=== PATIENT | female | born 1950 | race Caucasian/White ===

== ENCOUNTER → 2023-01-29 | Outpatient (CLI) | payer MEDICARE, OTHER, SELFPAY ==
--- NOTE | 2023-01-29 13:06 | CT_ITS ---
EXAM: CT ABDOMEN AND PELVIS WITHOUT INTRAVENOUS CONTRAST CLINICAL INDICATION: Right mid abd pain, rectal bleeding -- allergic to contrast even with pre-treatment TECHNIQUE: Helically acquired images were obtained of the abdomen and pelvis without intravenous contrast. This CT exam was performed using one or more of the following dose reduction techniques: automated exposure control, adjustment of the mA and/or kV according to patient size, and/or use of iterative reconstruction technique. RADIATION DOSE: CTDIvol = 6.54 mGy, DLP = 313.90 mGy-cm COMPARISON: No relevant prior studies available. FINDINGS: LOWER THORAX: Minimal atelectasis or scarring in the right middle lobe and lingula. No cardiomegaly. No significant pericardial effusion. ABDOMEN: LIVER: Unremarkable. Homogeneous. GALLBLADDER AND BILE DUCTS: Cholecystectomy clips. No intra- or extrahepatic biliary ductal dilation. PANCREAS: Unremarkable. No focal cystic mass. SPLEEN: Unremarkable. Normal size without focal cystic or solid mass. ADRENALS: Unremarkable. No nodules. KIDNEYS AND URETERS: Mildly prominent right renal pelvis compared to the left, likely chronic, right renal pelvis 1.6 cm AP compared to 9 mm on the left. Small ureters. Collapsed urinary bladder. Normal renal size and position. STOMACH AND BOWEL: Mild fluid and gas in the stomach. No suspicious small bowel dilatation. Moderate stool in some of the proximal half of the colon, minimal contents in the distal colon and rectum. No perirectal soft tissue stranding. No significant diverticulosis. No perianal or perirectal mass or inflammation. No focal inflammatory change. PELVIS: APPENDIX: Nonvisualized appendix. BLADDER: See above. REPRODUCTIVE: Hysterectomy. Scattered surgical clips in the bilateral lower abdominal retroperitoneum and along the pelvic sidewalls. Normal heart size, not fully included. ABDOMEN and PELVIS: INTRAPERITONEAL SPACE: Unremarkable. No ascites or other fluid collection. No free air. BONES/JOINTS: Unremarkable. No suspicious lytic or blastic abnormality. SOFT TISSUES: Unremarkable. No discrete abdominal or pelvic wall hernia. VASCULATURE: Moderate calcifications of the origins of the celiac axis and SMA. No evidence of aortoiliac aneurysm. LYMPH NODES: Unremarkable. No enlarged lymph nodes. CT/Abdomen/Pelvis without Cont IMPRESSION: Nonspecific findings. Multifocal postoperative changes. No obvious inflammatory changes. Mildly prominent right renal pelvis, likely chronic. Electronically Signed: Cori Palomino MD at 5:17 EDT ,
== END | disposition home or self-care (01) ==
LOC: CT 13:05
PROVIDERS: PCP Family Medicine; Referring Provider Nurse Practitioner Adult Health; Visit Provider Nurse Practitioner Adult Health
DX: R10.9 Unspecified abdominal pain (principal); K62.5 Hemorrhage of anus and rectum
CPT/HCPCS: 74176

== ENCOUNTER 2023-02-24 05:23 | Day surgery (SDC) | payer MEDICARE, OTHER, SELFPAY ==
[2023-02-24] VITALS (7 sets, daily range): BP systolic 115–145; BP diastolic 63–83; PULSE 64–76; RESP 16–104; TEMP 36.5–36.8; O2SAT 96–100; BMI 25.9
--- NOTE | 2023-02-24 | GASB_PTH ---
PATIENT: NADER HOWELL LOC: EN U#:[id number] AGE/SX: 72/F ROOM: RE02/24/[address]: Dr. Brant Tang DO : 1950 BED: DIS: 02/24/2023 SPEC #: [id number] RECD: 02/24/23 12:56 STATUS: TANNER REImani #: [id number] BRANDON: 02/24/23 00:[address]: Brant Tang DEPT: SURGICAL PATHOLOGY RECD BY: Jaison Seymour ENTERED: 02/24/23 12:57 SP TYPE: Gastric Bx OTHR DR: Dr. Femi Stoner DO Tissues: A - Duodenum, NOS B - Gastric mucous membrane C - Esophageal mucous membrane D - Cecum, NOS Procedures: Special Stain Group II Surgery Specimen Level IV Alcian Blue/PAS (control) HEADER OPERATION: Colonoscopy, EGD ([facility]), biopsy PRE-OP DIAGNOSIS: Right-sided abdominal pain, rectal pain, GERD TISSUE SUBMITTED: A ? Duodenum biopsy, B ? Gastric antrum biopsy, H. pylori and path, C ? Distal esophagus biopsy, D ? Polyp cecum MICROSCOPIC DIAGNOSIS A. Duodenum, biopsy: No pathologic change. B. Gastric antrum, biopsy: Chronic gastritis. See comment. C. Distal esophagus, biopsy: Fragments of gastric mucosa with mild chronic inflammation. No evidence of goblet cell metaplasia. See comment. D. Cecal polyp, biopsy: Tubular adenoma. AM:lynette 02/25/2023 COMMENT B. The results of immunohistochemistry for Helicobacter pylori will be reported separately ([id number]). C. Alcian blue/PAS stain with matched control supports the above diagnosis. MICROSCOPIC DESCRIPTION Slides are reviewed. GROSS DESCRIPTION A - Received in fixative is one container labeled with the patient's name and designated duodenum. The specimen consists of two irregular fragments of light ingram soft tissue that in aggregate measure 0.5 x 0.3 x 0.1 cm. The specimen is totally submitted in one cassette. B - Received in fixative is one container labeled with the patient's name and designated gastric antrum. The specimen consists of two irregular fragments of light ingram soft tissue that in aggregate measure 0.6 x 0.2 x 0.1 cm. The specimen is totally submitted in one cassette. C - Received in fixative is one container labeled with the patient's name and designated distal esophagus. The specimen consists of two irregular fragments of light ingram soft tissue that in aggregate measure 0.5 x 0.5 x 0.1 cm. The specimen is totally submitted in one cassette. D - Received in fixative is one container labeled with the patient's name and designated cecal polyp. The specimen consists of one irregular fragment of light ingram soft tissue that measures 0.5 x 0.5 x 0.1 cm. The specimen is totally submitted in one cassette. / AM:lynette 02/24/2023 TC:3 CPT: 06449 x4, 94732
[2023-02-24] MEDS: Lactated Ringers 1,000 ML 15 ML IV (05:51)
--- NOTE | 2023-02-24 06:30 | IMM_PTH ---
PATIENT: NADER HOWELL LOC: EN U#:[id number] AGE/SX: 72/F ROOM: RE02/24/[address]: Dr. Bratn Tang DO : 1950 BED: DIS: 02/24/2023 SPEC #: [id number] RECD: 02/24/23 13:32 STATUS: TANNER REQ #: [id number] BRANDON: 02/24/23 06:[address]: Brant Tang DEPT: IMMUNOHISTOCHEMISTRY RECD BY: Alondra Yu ENTERED: 02/24/23 13:32 SP TYPE: IMMUNO OTHR DR: Dr. Femi Stoner DO Tissues: B - Stomach, NOS Procedures: H Pylori (initial) PHYSICIAN & INSTITUTION [place] [id number] SPECIMEN INFORMATION: Tissue Source: B - Gastric antrum Clinical Info: Right-sided abdominal pain, rectal bleeding, GERD Specimen Number: [id number] CPT code: 38200 METHODOLOGY: Deparaffinized sections of prefer/formalin-fixed tissue or PAP/DQ stained slides are incubated with monoclonal/polyclonal antibodies/oligonucleotide probes. Localization is made via biotin free immunoperoxidase method. Appropriate controls are performed and reacted as expected. Results on target cell population are indicated in the following table: RESULTS: ANTIBODY / CLONE RESULT Block B H Pylori (polyclonal) negative These tests were developed and their performance characteristics determined by [facility]. They may not have been cleared or approved by the U.S. Food and Drug Administration. The FDA has determined that such clearance or approval is not necessary. The above immunohistochemical/dualISH markers are ordered and reviewed by the Pathologist. INTERPRETATION: B. Gastric antrum, biopsy: Negative for Helicobacter pylori organisms. AM:lynette 02/25/2023
--- NOTE | 2023-02-24 06:37 | HP.PCM_ITS ---
History and Physical Date of Admission: 02/24/23 ?72 F who presents to the office today to establish with Gastroenterology for worsening right sided abdominal pain. This pain began years ago, but worse in last few months. Occurs maybe 2x per month, can be severe, wonders if it's due to scar tissue from multiple abd surgeries. Can occur with bending over. No related to eating. No associated symptoms. Helps to press that area when it occurs, can be a bulge. Recent US didn't show soft tissue problem there. Takes omeprazole daily for acid reflux, has helped to increase recently from 20 mg to 40 mg daily. Often feels like she needs to cough. Gets nausea, thinks often due to vertigo. Can have some epigastric bloating. No dysphagia. No early satiety. No change in appetite. No change in weight. No change in bowels. Consistency of stools can vary, but that isn't a change.? Needs multiple BMs to fully evacuate. Today she had BRBPR for the first time ever, no assoc pain. She reports external hemorrhoids. Hx IBS, can have some cramping related to BMs. 11/2022 RUQ US normal including soft tissue area of concern EGD and colonoscopy 2016 PSH includes hysterectomy, appy, cholecystectomy Even with pre-treatment she had severe allergic reaction to CT contrast dye ROS Const Constitutional: Positive for fatigue ENT ENT: No difficulty swallowing Gastro GI: Positive for abdominal pain, cramping and heartburn; No belching, bloating, change in bowel habits, change in stool character, coffee ground emesis, constipation, diarrhea, difficulty swallowing, feeling full early, excessive flatus, incontinent of stools, Vomiting blood/hematemesis, Bloo d in stool, loose stools, Black,tarry stools, nausea/dyspepsia, pain with swallowing, vomiting or other Musc Musculoskeletal: Positive for joint pain, joint swelling, numbness, stiffness, tingling, Arthritis, restless legs and leg pain at night Skin Skin: No yellowing of the eye or itchy eyes Neuro Neurology: Positive for numbness, tingling and restless legs Psych Psychiatric: Positive for anxiety and No depression Endo Endocrine: Positive for fatigue Aller/Imm Allergy/Immunologic: No itchy eyes Moshe/Lymp Hematologic/Lymphatic: No easy bleeding or easy bruising Exam Const General: cooperative, healthy appearing and comfortable Nutritional Appearance: overweight Orientation: alert, awake and oriented x3 HENMT Head: normal to inspection Eyes Sclera: sclerae normal Resp Effort & Inspection: normal respiratory effort GI Inspection: scar (hyst,shiv,appy) Palpation: soft, no hepatosplenomegaly, no masses and nontender Skin General: no rashes or lesions noted Neuro Gait: normal gait Psych Mood: congruent mood Quality Reporting Tobacco Screening ([facility] 138) Smoking Status: Never smoker Assessment and Plan Assessment and Plan (1) Right sided abdominal pain: ?Status:?Chronic ?Plan: 72 yo female with chronic right sided abd pain. No reason found on US. Will get CT (can't have contrast due to severe allergy even w/ pre-treatment). EGD and colonoscopy for further eval. F/u in office 2 wks after endoscopies. (2) Rectal bleeding: ?Status:?Acute ?Plan: Painless rectal bleeding today Will get colonoscopy (3) GERD (gastroesophageal reflux disease): ?Status:?Chronic ?Plan: Continue omeprazole 40 mg daily Will get EGD ? ? ? Orders: Orders Abdomen/Pelvis without Cont Today R10.9 - Unspecified abdominal pain ? Medications: Discontinued hydrocodone-acetaminophen 5-300 mg (Vicodin) ?? Discontinued Reason:? Pt no longer taking 1 - 2 tabs? PO Q6H PRN PRN 30 tabs Pain ? ? I have examined the patient and the H&P has been reviewed. There are no clinical changes since date of exam.
--- NOTE | 2023-02-24 07:26 | OP.EGD_ITS ---
Patient Name: Gin Rodriguez Procedure Date: 02/24/2023 6:20 AM Date of : 1950 Age: 72 Procedure: Upper GI endoscopy Indications: Epigastric abdominal pain, Functional Dyspepsia Providers: Brant Tang DO Referring MD: Femi Stoner Medicines: Monitored Anesthesia Care Patient Profile: This is a 72 year old female. Refer to note in patient chart for documentation of history and physical. Patient has symptoms of chronic abdominal distention and chronic global abdominal pain. Complications: No immediate complications. Procedure: Pre-Anesthesia Assessment: - Prior to the procedure, a History and Physical was performed, and patient medications and allergies were reviewed. The risks and benefits of the procedure and the sedation options and risks were discussed with the patient. All questions were answered and informed consent was obtained. Patient identification and proposed procedure were verified by the physician. Mental Status Examination: normal. CV Examination: normal. Prophylactic Antibiotics: The patient does not require prophylactic antibiotics. Prior Anticoagulants: The patient has taken no previous anticoagulant or antiplatelet agents. After reviewing the risks and benefits, the patient was deemed in satisfactory condition to undergo the procedure. The anesthesia plan was to use monitored anesthesia care (MAC). Immediately prior to administration of medications, the patient was re-assessed for adequacy to receive sedatives. The heart rate, respiratory rate, oxygen saturations, blood pressure, adequacy of pulmonary ventilation, and response to care were monitored throughout the procedure. The physical status of the patient was re-assessed after the procedure. After obtaining informed consent, the endoscope was passed under direct vision. Throughout the procedure, the patient's blood pressure, pulse, and oxygen saturations were monitored continuously. The was introduced through the mouth, and advanced to the second part of duodenum. The upper GI endoscopy was accomplished without difficulty. The patient tolerated the procedure well. Scope In: 6:47:18 AM Scope Out: 6:52:44 AM Total Procedure Duration Time 0 hours 5 minutes 26 seconds Findings: Non-severe esophagitis with no bleeding was found 36 to 38 cm from the incisors. Biopsies were taken with a cold forceps for histology. Verification of patient identification for the specimen was done. Estimated blood loss was minimal. Diffuse mild inflammation characterized by erythema was found in the gastric body. Biopsies were taken with a cold forceps for histology. Estimated blood loss: none. Diffuse mildly erythematous mucosa without active bleeding and with no stigmata of bleeding was found in the first portion of the duodenum. Biopsies were taken with a cold forceps for histology. Verification of patient identification for the specimen was done. Estimated blood loss was minimal. Impression: - Non-severe esophagitis. Biopsied. - Bile gastritis. Biopsied. - Erythematous duodenopathy. Biopsied. Recommendation: - Discharge patient to home. - Resume previous diet. - Continue present medications. - Await pathology results. - Repeat upper endoscopy for surveillance. Procedure Code(s): --- Professional --- 85635, Esophagogastroduodenoscopy, flexible, transoral; with biopsy, single or multiple CPT copyright 2017 [employer]. All rights reserved. The codes documented in this report are preliminary and upon death surveys coder review may be revised to meet current compliance requirements. Brant Tang DO 02/24/2023 7:25:46 AM This report has been signed electronically. Number of Addenda: 0 Note Initiated On: 02/24/2023 6:20 AM
--- NOTE | 2023-02-24 07:27 | OP.CCLET_ITS ---
02/24/2023 Femi Stoner Re : Upper GI endoscopy procedure for Gin Rodriguez Dear Georgaina This procedure was performed on Friday, February 24, 2023. My impressions and recommendations are as follows: Impressions : - Non-severe esophagitis. Biopsied. - Bile gastritis. Biopsied. - Erythematous duodenopathy. Biopsied. Recommendations : - Discharge patient to home. - Resume previous diet. - Continue present medications. - Await pathology results. - Repeat upper endoscopy for surveillance. My findings are described in the full procedure note, which is enclosed. If I can be of further assistance, please feel free to contact me at . Sincerely, Brant Tang DO 02/24/2023 7:25:46 AM This report has been signed electronically.
--- NOTE | 2023-02-24 07:32 | OP.COLON_ITS ---
Patient Name: Gin Rodriguez Procedure Date: 02/24/2023 6:52 AM Date of : 1950 Age: 72 Procedure: Colonoscopy Indications: Generalized abdominal pain, Abdominal pain in the left lower quadrant Providers: Brant Tang DO Referring MD: Femi Stoner Medicines: Monitored Anesthesia Care Patient Profile: This is a 72 year old female. Refer to note in patient chart for documentation of history and physical. Patient has symptoms of chronic abdominal distention and chronic global abdominal pain. Last Colonoscopy: 5 years ago. Complications: No immediate complications. Procedure: Pre-Anesthesia Assessment: - Prior to the procedure, a History and Physical was performed, and patient medications and allergies were reviewed. The risks and benefits of the procedure and the sedation options and risks were discussed with the patient. All questions were answered and informed consent was obtained. Patient identification and proposed procedure were verified by the physician. Mental Status Examination: normal. CV Examination: normal. Prophylactic Antibiotics: The patient does not require prophylactic antibiotics. Prior Anticoagulants: The patient has taken no previous anticoagulant or antiplatelet agents. After reviewing the risks and benefits, the patient was deemed in satisfactory condition to undergo the procedure. The anesthesia plan was to use monitored anesthesia care (MAC). Immediately prior to administration of medications, the patient was re-assessed for adequacy to receive sedatives. The heart rate, respiratory rate, oxygen saturations, blood pressure, adequacy of pulmonary ventilation, and response to care were monitored throughout the procedure. The physical status of the patient was re-assessed after the procedure. After I obtained informed consent, the scope was passed under direct vision. Throughout the procedure, the patient's blood pressure, pulse, and oxygen saturations were monitored continuously. The Colonoscope was introduced through the anus and advanced to the terminal ileum. The colonoscopy was performed without difficulty. The patient tolerated the procedure well. The quality of the bowel preparation was good. Scope In: 6:55:20 AM Scope Withdrawal Time 0 hours 11 minutes 57 seconds Scope Out: 7:14:47 AM Total Procedure Duration Time 0 hours 19 minutes 27 seconds Findings: The perianal and digital rectal examinations were normal. A benign-appearing, intrinsic moderate stenosis measuring 3 cm (in length) was found in the sigmoid colon and was traversed. A 5 mm polyp was found in the cecum. The polyp was sessile. The polyp was removed with a cold snare. Resection and retrieval were complete. Verification of patient identification for the specimen was done. Estimated blood loss was minimal. Impression: - Stricture in the sigmoid colon. - One 5 mm polyp in the cecum, removed with a cold snare. Resected and retrieved. Recommendation: - Repeat colonoscopy in 5 years for surveillance. - Continue present medications. Procedure Code(s): --- Professional --- 62617, Colonoscopy, flexible; with removal of tumor(s), polyp(s), or other lesion(s) by snare technique CPT copyright 2017 [employer]. All rights reserved. The codes documented in this report are preliminary and upon punchboard filling machine operator review may be revised to meet current compliance requirements. Brant Tang DO 02/24/2023 7:31:57 AM This report has been signed electronically. Number of Addenda: 0 Note Initiated On: 02/24/2023 6:52 AM
--- NOTE | 2023-02-24 07:32 | OP.CCLET_ITS ---
02/24/2023 Femi Stoner Re : Colonoscopy procedure for Gin Rodriguez Dear Georgiana This procedure was performed on Friday, February 24, 2023. My impressions and recommendations are as follows: Impressions : - Stricture in the sigmoid colon. - One 5 mm polyp in the cecum, removed with a cold snare. Resected and retrieved. Recommendations : - Repeat colonoscopy in 5 years for surveillance. - Continue present medications. My findings are described in the full procedure note, which is enclosed. If I can be of further assistance, please feel free to contact me at . Sincerely, Brant Tang, 02/24/2023 7:31:57 AM This report has been signed electronically.
[2023-02-27 19:07] LABS: Anti-Centromere B Ab <0.2 AI (0.0-0.9); Anti-Chromatin <0.2 AI (0.0-0.9); Anti-Jo <0.2 AI (0.0-0.9); Anti-Scleroderma-70 AB <0.2 AI (0.0-0.9); Anti-dsDNA Ab 1 IU/mL (0-9); Beef <0.10 kU/L (Class 0); Chocolate <0.10 kU/L (Class 0); Clam <0.10 kU/L (Class 0); Codfish <0.10 kU/L (Class 0); Corn <0.10 kU/L (Class 0); Egg, White <0.10 kU/L (Class 0); Egg, Whole <0.10 kU/L (Class 0); Milk (Cow) <0.10 kU/L (Class 0); Peanut <0.10 kU/L (Class 0); Pork <0.10 kU/L (Class 0); RNP Ab <0.2 AI (0.0-0.9); SCALLOP <0.10 kU/L (Class 0); SESAME SEED <0.10 kU/L (Class 0); SJOGREN'S Anti-SS-A test < 0.2 AI (0.0-0.9); SJOGREN'S Anti-SS-B test < 0.2 AI (0.0-0.9); Shrimp <0.10 kU/L (Class 0); Smith Ab <0.2 AI (0.0-0.9); Soybean <0.10 kU/L (Class 0); Walnut, (Food) <0.10 kU/L (Class 0); Wheat <0.10 kU/L (Class 0)
[2023-02-28 01:07] LABS: Albumin, Ur 64.1 % (.); Alpha-1-Globulin, Ur 0.7 % (.); Alpha-2-Globulins, Ur 5.1 % (.); Beta Globulin, Ur 11.7 % (.); Cytoplasmic Ab (C-ANCA) <1:20 titer (Neg:<1:20); Gamma Globulin, Ur 18.5 % (.); Immunoglobulin A 31 mg/dL (64-422); Immunoglobulin E 13 IU/mL (6-495); Immunoglobulin G 1154 mg/dL (586-1602); Immunoglobulin M 48 mg/dL (26-217); M-Spike, Ur % Comment: % (Not Observed); Perinuclear Ab (P-ANCA) <1:20 titer (Neg:<1:20); Total Protein, Ur 44.2 mg/dL (Not Estab.)
== END 2023-02-24 08:14 | disposition home or self-care (01) ==
LOC: EN 05:25 → AC 05:25
PROVIDERS: PCP Family Medicine; Referring Provider Family Medicine; Visit Provider Internal Medicine Gastroenterology
PROC: 0DJD8ZZ Inspection of Lower Intestinal Tract, Via Natural or Artificial Opening Endoscopic (ICD-10-PCS; CPT 45378; principal; 2023-02-24 06:25)
DX: D12.0 Benign neoplasm of cecum (principal); K29.50 Unspecified chronic gastritis without bleeding; K21.00 Gastro-esophageal reflux disease with esophagitis, without bleeding; K31.89 Other diseases of stomach and duodenum; K62.5 Hemorrhage of anus and rectum; R10.84 Generalized abdominal pain; G89.29 Other chronic pain; I10 Essential (primary) hypertension; E03.9 Hypothyroidism, unspecified; F41.9 Anxiety disorder, unspecified; E66.3 Overweight; Z68.25 Body mass index [BMI] 25.0-25.9, adult; Z91.041 Radiographic dye allergy status; Z79.899 Other long term (current) drug therapy
CPT/HCPCS: 45385; 43239; 36415; 82784; 82785; 84166; 86003; 86005; 86225; 86235; 86256; 86335; 88305; 88313; 88342; J7120; J2405

== ENCOUNTER → 2023-03-06 | Outpatient (CLI) | payer MEDICARE, OTHER, SELFPAY | END | disposition home or self-care (01) | PROVIDERS: PCP Family Medicine; Referring Provider Internal Medicine Gastroenterology; Visit Provider Internal Medicine Gastroenterology | DX: R10.9 Unspecified abdominal pain (principal) | CPT/HCPCS: 36415 ==

== ENCOUNTER → 2023-04-07 | Outpatient (CLI) | payer MEDICARE, OTHER, SELFPAY | END | disposition home or self-care (01) | LOC: LABSPEC 15:16 | PROVIDERS: PCP Family Medicine; Referring Provider Nurse Practitioner Women's Health; Visit Provider Nurse Practitioner Women's Health | DX: Z13.29 Encounter for screening for other suspected endocrine disorder (principal) ==

== ENCOUNTER → 2023-10-28 | Outpatient (CLI) | payer MEDICARE, OTHER, SELFPAY ==
--- NOTE | 2023-10-28 11:00 | RAD_ITS ---
STUDY: X-RAY BONE SURVEY COMPLETE REASON FOR EXAM: Female, 73 years old. MGUS R/O MYELOMA TECHNIQUE: One view of the pelvis was obtained. 2 views of the cervical spine were obtained. 2 views of the thoracic spine were obtained. 2 views of the lumbar spine were obtained. 2 views of the femur. One views of the humerus. : 2 views of the skull were obtained. COMPARISON: None. FINDINGS: CHEST: The lungs are clear and expanded. There is no demonstrated pleural abnormality. Normal size heart. Normal mediastinum and vineet. Normal visualized pulmonary arteries. Normal visualized aortic arch and descending thoracic aorta. Normal visualized thoracic spine. Normal visualized ribs, clavicles, and shoulders. There is no demonstrated abnormality of the visualized soft tissue structures of the upper abdomen. PELVIS: There is a non-specific bowel gas pattern. Normal visualized soft tissue structures. Normal bilateral iliac wings, sacroiliac joints and visualized sacrum. Normal visualized bilateral superior and inferior pubic rami. Normal pubic symphysis. Normal ischial tuberosities. Normal visualized right femoral head. Normal right acetabulum. Normal right hip joint. Normal visualized left femoral head. Normal left acetabulum. Normal left hip joint. CERVICAL SPINE: Normal anterior atlantoaxial articulation. Normal odontoid process. Normal cervical lordosis. Normal vertebral bodies and endplates. Normal disc space heights. The soft tissue structures are unremarkable. THORACIC SPINE: Normal kyphosis of the thoracic spine. Mild dextroconvex scoliosis. Normal thoracic vertebrae and endplates. Normal disc space heights. The soft tissue structures are unremarkable. LUMBAR SPINE: Normal lumbar lordosis. Mild levoconvex scoliosis. There is a normal alignment of the vertebrae. Normal vertebral bodies and endplates. Normal disc space heights. The soft tissue structures are unremarkable. RIGHT FEMUR: Normal visualized femur. Normal visualized soft tissue structure. LEFT FEMUR: Normal visualized femur. Normal visualized soft tissue structure. RIGHT HUMERUS :Normal visualized humerus. There is no demonstrated fracture or osseous destructive process. There is no demonstrated soft tissue abnormality. LEFT HUMERUS:Normal visualized humerus. There is no demonstrated fracture or osseous destructive process. There is no demonstrated soft tissue abnormality. SKULL: There is no demonstrated soft tissue swelling. Normal osseous calvarium. Normal visualized facial bones. Normal visualized paranasal sinuses. RAD/Bone Survey Comp(Axial&Append) IMPRESSION: No osteolytic or osteoblastic disease Electronically Signed: Ayaan Lopez MD at 21:39 EST ,
== END | disposition home or self-care (01) ==
LOC: RAD 11:03
PROVIDERS: PCP Family Medicine; Referring Provider Internal Medicine Hematology & Oncology; Visit Provider Internal Medicine Hematology & Oncology
DX: D47.2 Monoclonal gammopathy (principal)
CPT/HCPCS: 77075

== ENCOUNTER → 2024-05-14 | Outpatient (CLI) | payer MEDICARE, OTHER, SELFPAY ==
[2024-05-14 16:06] LABS: Mucous, Urine 0 SEEN /hpf (<or=2+)
[2024-05-14 16:31] LABS: Color, Urine Yellow (Yellow); Glucose, Dipstick Normal (Normal); Ketone-Dipstick Negative (Negative); Leukocyte Esterase-Dipstick 500 /ul (Negative); Nitrite-Dipstick Negative (Negative); Occult Blood-Urine 150 /ul (Negative); Protein-Dipstick 15 mg/dl (Negative); Specific Gravity, Urine 1.025 (1.002-1.030); Urine Bilirubin Dipstick Negative (Negative); Urine Clarity Sl. Cloudy (Clear); Urine Urobilinogen Normal (Normal)
[2024-05-14 16:49] LABS: Red Blood Cells-Urine 0-5 SEEN /hpf (0-5); White Blood Cells 50-100 SEEN /hpf (0-5)
[2024-05-14 16:50] LABS: Bacteria 1+ /hpf (None Seen); Calcium Oxalate Crystals Ur 1+ /hpf (<or=2+); Squamous Epithelial Cells - UA 0-5 SEEN /hpf (5-10); Transitional Epithelial - Ur 0-5 SEEN /hpf (0-5)
== END | disposition home or self-care (01) ==
LOC: LABSPEC 15:11
PROVIDERS: Referring Provider Physician Assistant Surgical; Visit Provider Physician Assistant Surgical
DX: R30.0 Dysuria (principal)
CPT/HCPCS: 81001; 87086; 87088

== ENCOUNTER → 2024-07-12 | Outpatient (CLI) | payer MEDICARE, OTHER, SELFPAY ==
--- NOTE | 2024-07-12 14:17 | US_ITS ---
STUDY: ULTRASOUND BREAST - RIGHT REASON FOR EXAM: Female, 73 years old. 6 month follow-up examination. TECHNIQUE: Axial and longitudinal images of the RIGHT breast were performed with a high resolution ultrasound transducer. # OF IMAGES: 18 COMPARISON: Comparison is made with prior mammogram dated July 12, 2024 and prior outside sonogram dated December 31, 2023 FINDINGS: RIGHT Breast: The upper aspect of the right breast was examined with ultrasound. Stable 8mm by 8mm by 4 mm cluster of tiny cysts at the 12:00 position of breast at 3 cm from the nipple. US/Breast Limited Unilateral IMPRESSION: Stable examination. ASSESSMENT CATEGORY: BIRADS Category 2: Benign. A letter regarding these results will be sent to the patient by the facility within 30 days. Electronically Signed: Francis Saldana MD at 9:37 EST ,
--- NOTE | 2024-07-12 14:17 | BI_ITS ---
MAMMOGRAPHY - UNILATERAL DIAGNOSTIC: RIGHT BREAST REASON FOR EXAM: Female, 73 years old. Six-month follow-up for left breast nodule. PERTINENT HISTORY: Non-contributory. TECHNIQUE: Digital unilateral breast brian (3D mammographic acquisition) in the CC and MLO projections. 2-D mediolateral oblique (MLO) and craniocaudad (CC) views of both breasts were obtained. CAD: Full Field Digital Mammography with Computer Added Detection was performed. COMPARISON: Comparison is made with prior outside examination dated November 13, 2023. FINDINGS: Breast Composition: There are scattered areas of fibroglandular density. Stable 7.6 mm x 7.5 mm well-defined nodule in the slightly upper lateral aspect of the right breast. Correlation with ultrasound is recommended. No other significant abnormalities are identified. BI/DIAG MAMM W/CAD, UNILAT IMPRESSION: Stable unilateral diagnostic mammogram. Targeted sonographic correlation of the right breast nodule recommended. ASSESSMENT CATEGORY: BIRADS Category 0: Incomplete. Need additional imaging evaluation. A letter regarding these results will be sent to the patient by the facility within 30 days. Approximately 10% of breast cancers are not detected by mammography. A normal mammogram should not delay biopsy of a clinically suspicious abnormality. Electronically Signed: Francis Saldana MD at 8:17 EST ,
== END | disposition home or self-care (01) ==
LOC: OPBI 14:17
PROVIDERS: PCP Family Medicine; Referring Provider Nurse Practitioner Women's Health; Visit Provider Nurse Practitioner Women's Health
DX: R92.8 Other abnormal and inconclusive findings on diagnostic imaging of breast (principal); N60.11 Diffuse cystic mastopathy of right breast; N63.10 Unspecified lump in the right breast, unspecified quadrant
CPT/HCPCS: 76642; 77061; 77065; G0279

== ENCOUNTER 2024-10-10 01:38 | Emergency (ER) | payer MEDICARE, OTHER, SELFPAY ==
[2024-10-10 01:39] VITALS: BP 163/74; PULSE 87; RESP 18; TEMP 36.6; O2SAT 96; BMI 28.0
[2024-10-10] MEDS: Morphine 4 MG/ML Syringe IM (02:49)
[2024-10-10] MEDS: predniSONE 20 MG Tablet 60 MG PO (02:50)
--- NOTE | 2024-10-10 02:55 | ED.RN ---
Patient used call light stating she has to urinate. Patient informed nurse will be in to assist. Patient's son came out and became rude to ED alumnae secretary stating his mother has to urinate right now. Son informed nursing staff will be in to assist as soon as they can. Patient's son became increasingly rude to staff and argumentative. This RN bedside to place pure wick on patient due to patient's inability to move position due to pain. Son asked to step out of room to maintain patient privacy. Patient walked through pure wick placement process and placed effectively, urine draining to wall canister.
--- NOTE | 2024-10-10 03:14 | ED.VIS.BACK ---
HPI History of Present Illness Chief Complaint: Back Informant: patient, spouse/S.O. and family Narrative Narrative: Presents by EMS from home for worsening nontraumatic low back pain. Patient states she had started have symptoms around Evelin time pain left lower back. Saw her PCP office twice first time placed on muscle relaxers and tramadol. She then followed up with them again had prednisone and tramadol. States seeing her pain doctor, Dr. Kan in [place] 2 weeks ago. Continued her tramadol. She states she has an MRI scheduled in October 25. She had previous lumbar injection a year ago lower lumbar area which she had pain down her legs near her ankle and foot. He states that injection helped. Denies any loss of bowel or bladder control. Denies saddle anesthesia. Patient taken baclofen 10 mg 3 times daily she states when she takes it she sleeps. Family reports she is not getting around much of the last 2 days. Patient family states there is enough to help at home to get around. However pain increased this evening. Symptoms worse with movement. She is scheduled through [facility] for MRI states getting 1 done in the [place] area due to having an open MRI on October 25. She was on gabapentin a year ago states did not help. Total that her pain may be in a different area therefore needed a new MRI. Intermittent pain down to her knee this time. She reports she is already had x-rays through her doctors outpatient. Prior similar symptoms: Yes and With Prior Back Pain [facility] Medical History MGUS (monoclonal gammopathy of unknown significance) Loss of hearing Wears glasses Post-menopausal Anxiety Arthritis Anemia Restless legs Vertigo Gastric reflux Non-smoker Leg cramps History of pain when walking Cardiology follow-up encounter Hypothyroidism Positive PPD HTN (hypertension) History of benign ovarian tumor GERD (gastroesophageal reflux disease) IBS (irritable bowel syndrome) Right sided abdominal pain Home Medications ?Medication ?Instructions ?Recorded ?Last Taken ?Type Omeprazole [Prilosec] 40 mg PO 1500 05/21/16 05/27/16 18:00 History levothyroxine 50 mcg tablet 50 mcg PO DAILY 05/21/16 02/24/23 History metoprolol tartrate 25 mg tablet 25 mg PO LUNCH 05/21/16 05/28/16 05:30 History meloxicam 7.5 mg tablet mg PO 03/20/23 Unknown History calcium carbonate (Calcium 600) 600 mg PO DAILY 10/22/23 Unknown History cholecalciferol (vitamin D3) 50 50 mcg PO DAILY 10/22/23 Unknown History mcg (2,000 unit) capsule mecobalamin (vitamin B12) 500 mcg mcg PO 04/28/24 Unknown History chewable tablet gabapentin 300 mg capsule 300 mg PO QHS #30 caps 10/10/24 Unknown Rx prednisone 20 mg tablet 60 mg (3 x 20 mg) PO DAILY #12 10/10/24 Unknown Rx TABLETS Allergy/AdvReac Type Severity Reaction Status Date / Time Gadolinium-MRI Contrast Allergy Intermediate Hives Verified 10/10/24 01:42 Medium celecoxib (From Celebrex) Allergy Rash Verified 10/10/24 01:42 Iodinated Contrast Media Allergy Itching Verified 10/10/24 01:42 (CONTRASTS) latex Allergy Rash Verified 10/10/24 01:42 shellfish derived Allergy Itching Verified 10/10/24 01:42 naproxen AdvReac Nausea/Vom/ Verified 10/10/24 01:42 Diarrhea nickel (freddie) AdvReac Rash Verified 10/10/24 01:42 Family History Mother Brain cancer Lung cancer Father CVA (cerebral vascular accident) Brother Prostate cancer Surgical History History of esophagogastroduodenoscopy (EGD) Hx of colonoscopy S/P total abdominal hysterectomy H/O oophorectomy H/O foot surgery Hx of cholecystectomy History of appendectomy Social History household members: spouse number of children: 3 current occupational status: retired Smoking Status: Never smoker alcohol intake: never substance use type: does not use additional social history: -Keven- Retired ROS ROS ED Constitutional Constitutional ED: Denies chills, fever(s) or sweats ENT ENT ED: Denies sore throat Cardiovascular Cardiovascular: Denies chest pain, leg edema, palpitations or racing heartbeat Respiratory/Chest Respiratory/Chest: Denies cough, dyspnea or dyspnea on exertion Gastrointestinal Gastrointestinal: Denies abdominal pain, diarrhea, nausea or vomiting Genitourinary Genitourinary ED: Denies dysuria, hematuria or urinary frequency Musculoskeletal Musculoskeletal: Reports back pain; Denies extremity pain or neck pain Integumentary Denies rash or wounds Neurologic Neurologic: Denies headache(s), paresthesias or weakness EXAM Physical Exam Const Vital Signs: 10/10/24 01:39 10/10/24 03:38 10/10/24 04:25 Temperature 97.8 F 98.0 F Temperature Source Oral Pulse Rate 87 67 79 Respiratory Rate 18 16 18 Blood Pressure 163/74 H 130/54 H 134/84 H Blood Pressure Mean 103 79 100 Pulse Ox 96 97 100 Oxygen Delivery Method Room Air Room Air Positive well nourished and well developed Constitutional Narrative: Patient laying on her left side. Nontoxic. General Appearance ED: well developed and NAD HEENT Reports moist mucous membranes normocephalic and atraumatic Eyes General Eye ED: Yes normal appearance of both eyes Neck full ROM Chest Wall Chest: Negative for tenderness Resp normal respiratory effort and normal air movement Effort and Inspection: symmetric chest movement; Negative for respiratory distress Cardio regular rate, regular rhythm and no murmurs Peripheral Pulses: pulses 2+ throughout GI normal to inspection, nondistended, normoactive bowel sounds and non-tender Palpation: Negative for guarding or rebound tenderness present Back/Spine Back/Spine Narrative: No midline tenderness. Tender palpation left lumbar. Extremity normal to inspection General Extremety ED: Negative for edema or tenderness General Extremity: Negative for edema Neuro oriented x3 and no sensory deficits noted Sensorium / Orientation: awake and alert Skin no rashes or lesions noted and no wounds MDM MDM MDM Narrative Medical decision making narrative: Interventions / MDM: Differential diagnosis: Back pain, sciatica, lumbar radiculopathy Diagnosis considered but do not suspect: No cauda equina symptoms. My EKG interpretation: N/A Imaging independently reviewed and interpreted by myself: N/A External documents reviewed: N/A Test considered but not ordered:N/A ED course: Extensive discussion with the patient and family. Presenting with lumbar radiculopathy with sciatica symptoms. She is able to get around however with help. Pain is increasing today. Discussed with healthcare system, no indication for emergent MRI in the ED. I discussed will attempt symptom control. She states she able to sleep with her current muscle relaxers. She will awaken with pain. Will dose with IM morphine, restart prednisone as this has helped her was recently. Will reevaluate. 0415: Patient appeared more comfortable. With radicular symptoms I discussed retrial of gabapentin for which she agreed. 300 mg gabapentin ordered. Will attempt ambulation with a walker. 0430: Per nursing patient slowly get up but once up was able to get around with a walker. She has 1 at home. I will continue gabapentin and additional steroids. Encouraged her to discuss with MRI scheduled through [facility] to get their first available at any of their facilities as they can expedite her getting her testing for plan treatment by her pain doctors. She has tramadol at home along with the baclofen for muscle relaxer control. She will maintain her outpatient follow-up and further testing. All questions were answered. Re-evaluation: stable Disposition discussed with patient/family/significant other: Patient and family Case discussed with consulting clinician: N/A This note was generated with [employer]ahu dictation software. It may contain incorrect words, spelling, and punctuation that were not noted in checking the note before signing. Discharge Plan Triage Chief Complaint: Back ED Provider: Finn Pride Dx/Rx/DC Orders Clinical Impression: Sciatica of left side, Left lumbar radiculopathy Instructions: Understanding Lumbar Radiculopathy, ED Sciatica Prescriptions: New prednisone 20 mg tablet 60 mg PO DAILY Qty: 12 0RF gabapentin 300 mg capsule 300 mg PO QHS Qty: 30 0RF No Action meloxicam 7.5 mg tablet PO calcium carbonate [Calcium 600] 600 mg calcium (1,500 mg) tablet 600 mg PO DAILY cholecalciferol (vitamin D3) 50 mcg (2,000 unit) capsule 50 mcg PO DAILY mecobalamin (vitamin B12) 500 mcg tablet,chewable PO levothyroxine 50 MCG tablet 50 mcg PO DAILY metoprolol tartrate 25 MG tablet 25 mg PO LUNCH Omeprazole [Prilosec] 40 MG capsule 40 mg PO 1500 Primary Care Provider: Femi Stoner Referrals: Femi Stoner DO [Primary Care Provider] - 1 Week Activity Restrictions/Additional Instructions: Take medication as prescribed with your current regimen for pain control. You may call your [facility] MRI director search for potential openings or any other facilities for earlier MRI. Follow-up with your pain doctor and your PCP for continued management. Print Language: Emirati Disposition Disposition: Home, Self Care
[2024-10-10 03:38] VITALS: BP 130/54; PULSE 67; RESP 16; O2SAT 97
[2024-10-10 04:25] VITALS: BP 134/84; PULSE 79; RESP 18; TEMP 36.7; O2SAT 100
[2024-10-10] MEDS: Gabapentin 300 MG Capsule PO (04:31)
--- NOTE | 2024-10-10 11:39 | ED.RN ---
PT CALLED AND WANTED MEDS CHANGED TO SANDI JAEGER IN [place] FROM [facility] DUE TO [facility] BEING CLOSED TODAY. THIS WAS COMPLETED.
== END 2024-10-10 04:47 | disposition home or self-care (01) ==
PROVIDERS: Emergency Provider Emergency Medicine; PCP Family Medicine; Visit Provider Emergency Medicine
DX: M54.32 Sciatica, left side (principal); M54.16 Radiculopathy, lumbar region
CPT/HCPCS: 96372; 96374; 96375; 96376; 99285

== ENCOUNTER → 2024-12-02 | Outpatient (CLI) | payer MEDICARE, OTHER, SELFPAY ==
[2024-12-02] VITALS (16 sets, daily range): BP systolic 105–142; BP diastolic 52–69; PULSE 86–99; RESP 14–18; TEMP 36.1; O2SAT 95–98; BMI 25.7
--- NOTE | 2024-12-02 07:40 | CT_ITS ---
EXAM: CT-guided bone marrow biopsy. CLINICAL HISTORY: Anemia. COMPARISON: None. TECHNIQUE: See below. FINDINGS: Informed consent was obtained. Conscious sedation and analgesia were utilized. The left posterior iliac crest was approached with an 11 gauge trocar needle. Subsequently, the trabecular bone was entered. Bone marrow aspirate were 1st obtained and subsequently, 2 core biopsy specimens were obtained. All material was sent in the appropriate containers and media with the pathologist for evaluation. Patient tolerated the procedure well and was discharged home a short time later in good condition. CT/Biopsy/Inj or Needle Placement IMPRESSION: Uneventful CT-guided bone marrow aspiration and biopsy. Reading Location: [facility]
[2024-12-02 07:57] LABS: Absolute Lymphocyte Count 2.69 X10^3/uL (0.83-4.51); Absolute Neutrophil Count 3.7 X10^3/uL (2.0-7.7); Basophil# 0.04 X10^3/uL; Basophil% 0.5 % (0-1); Eosinophil# 0.05 X10^3/uL; Eosinophils% 0.7 % (0-5); Hematocrit 26.1 % (37-47); Hemoglobin 8.7 g/dL (12.0-15.0); Lymphocyte # 2.69 X10^3/ul (0.83-4.51); Lymphocyte % 35.5 % (19-41); Mean Corp Hgb Conc 33.3 g/dL (32-36); Mean Corpuscular Hgb 31.5 pg (27.0-32.0); Mean Corpuscular Volume 94.6 fL (81-99); Mean Platelet Vol. 9.9 fl (6.2-12.0); Monocyte# 0.95 X10^3/uL; Monocyte% 12.5 % (0-10); NRBC Flagged by Analyzer 0.3 % (0-5); Neutrophil # 3.69 X10^3/uL (2.7-7.7); Neutrophil % 48.8 % (47-70); Platelet Count 253 K/mm3 (150-450); RBC Distribution Width CV 14.4 % (11.6-14.6); RBC Distribution Width SD 46.7 fl (35.1-43.9); Red Blood Count 2.76 M/mm3 (4.2-5.4); White Blood Count 7.6 K/mm3 (4.4-11.0)
[2024-12-02] MEDS: Ondansetron 4 MG/2 ML Vial IV (08:52)
[2024-12-02] MEDS: 0.9% Saline Lock 10 ML Syringe IV (08:52)
[2024-12-02] MEDS: Midazolam 2 MG/2 ML Syringe IV ×2 (09:17→09:30)
[2024-12-02] MEDS: fentaNYL 100 MCG/2 ML Ampul IV (09:18)
[2024-12-02] MEDS: Lidocaine 2% (20 ml mdv) 20 ML Vial INFILT (09:38)
== END | disposition home or self-care (01) ==
LOC: CT 07:35
PROVIDERS: Radiology Diagnostic Radiology; PCP Family Medicine; Referring Provider Internal Medicine Hematology & Oncology; Visit Provider Internal Medicine Hematology & Oncology
DX: Z01.818 Encounter for other preprocedural examination (principal); D47.2 Monoclonal gammopathy
CPT/HCPCS: 38222; 36415; 77012; 85025; 99156; 99157; A4216; J2405

== ENCOUNTER → 2024-12-13 | Outpatient (CLI) | payer MEDICARE, OTHER, SELFPAY ==
--- NOTE | 2024-12-13 09:35 | RAD_ITS ---
PROCEDURE: Radiographic bone survey, 20 one views 12/13/2024 REASON FOR EXAM: Monoclonal gammopathy of uncertain significance. Evaluate for myeloma F, age 74 y/o . TECHNIQUE: A total of 21 radiographs of the axial and appendicular skeletal structures were obtained. COMPARISON: None available FINDINGS: Bones are mildly osteopenic. Degenerative changes are present in the spine. A 15 mm ovoid lucent lesion projects over the posterior calvarium on the lateral view of the skull. A few lucencies project over the frontal bone, measuring up to 11 mm. 5 mm lucency projects over the left frontal bone. Right upper quadrant surgical clips are present. Minimal streaky opacities project at the lung bases. Suggestion of some tiny low-density lesions involving some of the ribs, most notable involving the lateral right 7th rib. 7 mm possible lucent lesion mid to distal left humeral diaphysis image 8. Kyphoplasty changes and severe height loss of T11 and T12. Age-indeterminate [id number] height loss of L1, L2, and L4. There is exaggeration of the normal thoracic kyphosis. RAD/Bone Survey Comp(Axial&Append) IMPRESSION: There are some lucent lesions projecting over the skull, the largest posteriorl y at 15 mm. Suggestion of some tiny lucent lesions involving the ribs, greatest involving the lateral right 7th rib. Poss ible 7 mm lucent lesion distal left humerus. These may represent evidence of multiple myeloma. Suggest correlation with bio chemical findings. Severe height loss and kyphoplasty changes of T11 and T12. [id number] ag e-indeterminate height loss/compression deformities of L1, L2, and L4. Reading Location: [facility]
== END | disposition home or self-care (01) ==
LOC: RAD 09:26
PROVIDERS: PCP Family Medicine; Referring Provider Internal Medicine Hematology & Oncology; Visit Provider Internal Medicine Hematology & Oncology
DX: D47.2 Monoclonal gammopathy (principal)
CPT/HCPCS: 77075

== ENCOUNTER 2025-01-04 19:34 | Inpatient (IN) | payer MEDICARE, OTHER, SELFPAY ==
[2025-01-04] VITALS (8 sets, daily range): BP systolic 107–136; BP diastolic 63–68; PULSE 101–130; RESP 18–26; TEMP 36.9–37.2; O2SAT 93–96; BMI 24.8; BMI 23.1
--- NOTE | 2025-01-04 19:52 | EKG12_ITS ---
Test Reason : DYSRHYTHMIA Blood Pressure : */* mmHG Vent. Rate : 117 BPM Atrial Rate : 117 BPM P-R Int : 166 ms QRS Dur : 88 ms QT Int : 288 ms P-R-T Axes : 54 11 38 degrees QTcB Int : 401 ms Sinus tachycardia Inferior infarct , age undetermined Abnormal ECG Confirmed by NADJA LEBRON, BRANDY ([id number]), manuscript editor KAMERON HARRINGTON ([id number]) on 01/05/2025 1:34:23 PM Referred By: Confirmed By: BRANDY SAEZ MD
--- NOTE | 2025-01-04 20:04 | EX.ED.DYSGE1 ---
HPI History of Present Illness Chief Complaint: Nausea/Vomiting Detail of Chief Complaint: Nausea vomiting, shaking chills, burning up and confusion Informant: patient, spouse/S.O. and family Onset/Context/Timing Onset: Today Context: Sudden Onset Timing: Continuous Quality: Infectious symptoms uncertain if symptoms started before or after vomiting Location: Respiratory and GI Current Severity: Moderate Maximum Severity: Moderate Worsened by: Patient did receive chemo for multiple myeloma. Relieved by: Nothing Associated Symptoms Associated Symptoms: Nausea vomiting, shaking chills per , feels very hot per family Narrative Narrative: Patient is a pleasant 74-year-old woman. She has history of mouth myeloma. She received chemotherapy today. Her treatment is directed by Dr. Reid Cornejo. She has had multiple episodes of emesis. Uncertain whether the shortness of breath started before or after the nausea vomiting. Patient is not oriented. She did initially answer that she was 21 years of age then correctly. She thinks it is July. This is not normal according to the . She denies headache. Denies double vision blurry vision loss of vision. She denies runny nose, congestion postnasal drainage sore throat. She does endorse shortness of breath. She does have a cough. She vomited numerous times and based on material that is on her gown it was bilious in nature. There was no blood or coffee-ground material noted. Patient has a Band-Aid on her abdomen. She states they gave her something at the infusion center. She is not able to tell me anything else. She does have scars for cholecystectomy, appendectomy and hysterectomy. She does not recall why she had a hysterectomy. She is uncertain whether she has or has not had urinary symptoms. Patient's pulse ox was 60% per EMS. She was placed on 4 L by nasal cannula. She has no history of lung problems. She does endorse thirst and dry mouth. She does have a history of hypercalcemia. She has no allergy to penicillin or cephalosporins Recent Illness/Hospitalization: Yes PFSH [facility] Medical History Hypercalcemia of malignancy Encounter for education Loss of hearing Wears glasses Post-menopausal Anxiety Arthritis Anemia Restless legs Vertigo Gastric reflux Non-smoker Leg cramps History of pain when walking Cardiology follow-up encounter Hypothyroidism Positive PPD HTN (hypertension) History of benign ovarian tumor GERD (gastroesophageal reflux disease) IBS (irritable bowel syndrome) Right sided abdominal pain Home Medications ?Medication ?Instructions ?Recorded ?Last Taken ?Type Omeprazole [Prilosec] 40 mg PO 1500 05/21/16 05/27/16 18:00 History levothyroxine 50 mcg tablet 50 mcg PO DAILY 05/21/16 02/24/23 History metoprolol tartrate 25 mg tablet 25 mg PO LUNCH 05/21/16 05/28/16 05:30 History meloxicam 7.5 mg tablet 7.5 mg PO DAILY 03/20/23 Unknown History calcium carbonate (Calcium 600) 600 mg PO DAILY 10/22/23 Unknown History cholecalciferol (vitamin D3) 50 50 mcg PO DAILY 10/22/23 Unknown History mcg (2,000 unit) capsule mecobalamin (vitamin B12) 500 mcg 500 mcg PO DAILY 04/28/24 Unknown History chewable tablet gabapentin 300 mg capsule 300 mg PO QHS #30 caps 10/10/24 Unknown Rx acetaminophen 500 mg tablet 500 mg PO Q6H PRN pain 12/02/24 Unknown History (Acetaminophen Extra Strength) baclofen 5 mg tablet 5 mg PO BID 12/20/24 Unknown History acyclovir 400 mg tablet 400 mg PO BID #60 tabs 12/22/24 Unknown Rx aspirin 81 mg tablet,delayed 81 mg PO QDAY #30 tabs 12/22/24 Unknown Rx release (Adult Aspirin Regimen) dexamethasone 4 mg tablet 20 mg (5 x 4 mg) PO .COMPLEX #40 12/22/24 Unknown Rx tabs ondansetron 4 mg disintegrating 4 mg PO Q8H PRN nausea and 12/23/24 Unknown Rx tablet vomiting #30 tabs hydrocodone 5 mg-acetaminophen 300 1 tab PO Q6H PRN 01/04/25 Unknown History mg tablet Allergy/AdvReac Type Severity Reaction Status Date / Time Gadolinium-MRI Contrast Allergy Intermediate Hives Verified 01/04/25 19:44 Medium celecoxib (From Celebrex) Allergy Rash Verified 01/04/25 19:44 Iodinated Contrast Media Allergy Itching Verified 01/04/25 19:44 (CONTRASTS) latex Allergy Rash Verified 01/04/25 19:44 shellfish derived Allergy Itching Verified 01/04/25 19:44 naproxen AdvReac Nausea/Vom/ Verified 01/04/25 19:44 Diarrhea nickel (freddie) AdvReac Rash Verified 01/04/25 19:44 Family History Mother Brain cancer Lung cancer Father CVA (cerebral vascular accident) Brother Prostate cancer Surgical History History of esophagogastroduodenoscopy (EGD) Hx of colonoscopy S/P total abdominal hysterectomy H/O oophorectomy H/O foot surgery Hx of cholecystectomy History of appendectomy Social History household members: spouse number of children: 3 current occupational status: retired Smoking Status: Never smoker alcohol intake: never substance use type: does not use additional social history: -Keven- Retired ROS ROS ED Constitutional Constitutional ED: Reports chills, fever(s), subjective, sweats and weight loss Eyes Eyes: Denies blurry vision, change in vision or diplopia ENT ENT ED: Reports other Details: Dry mouth. ; Denies ear pain, rhinorrhea or sore throat Cardiovascular Cardiovascular: Reports chest pain and palpitations; Denies orthopnea or paroxysmal nocturnal dyspnea Respiratory/Chest Respiratory/Chest: Reports cough, dyspnea and dyspnea on exertion; Denies orthopnea, paroxysmal nocturnal dyspnea or sputum Gastrointestinal Gastrointestinal: Reports nausea and vomiting; Denies abdominal pain or melena Genitourinary Genitourinary ED: Denies dysuria, hematuria or urinary frequency Musculoskeletal Musculoskeletal: Denies arthralgias or myalgias Integumentary Denies rash Neurologic Neurologic: Reports weakness; Denies headache(s) Endocrine Endocrinology: Denies cold intolerance or heat intolerance Hematologic/Lymphatic Hematologic/Lymphatic: Reports systems reviewed and no addt'l complaints, except as documented EXAM Physical Exam Const Vital Signs: 01/04/25 19:35 01/04/25 19:42 01/04/25 20:34 Temperature 98.7 F 98.7 F Temperature Source Oral Oral Pulse Rate 130 H 128 H 115 H Respiratory Rate 23 H 26 H 25 H Blood Pressure 136/68 H 136/68 H 119/65 Blood Pressure Mean 90 90 83 Pulse Ox 96 93 96 Oxygen Delivery Method Nasal Cannula Nasal Cannula Oxygen Flow Rate (L/min) 4 4 01/04/25 20:42 01/04/25 22:00 01/04/25 22:07 Temperature 98.5 F 98.9 F 98.9 F Temperature Source Oral Oral Oral Pulse Rate 111 H 104 H Respiratory Rate 20 H 20 H Blood Pressure 123/66 H 115/65 Blood Pressure Mean 85 81 Pulse Ox 95 94 Oxygen Delivery Method Nasal Cannula Nasal Cannula Oxygen Flow Rate (L/min) 4 4 Positive well nourished and well developed Constitutional Narrative: Patient appears pale and ill. She is very hot to touch. I do not believe that her temperature was only 98.7. General Appearance ED: well developed and pallor HEENT HEENT Narrative: Head is atraumatic, cephalic. Ears normal. TMs normal. Nares patent. Posterior pharynx is normal. Eyes PERRL and EOMs intact bilaterally General Eye ED: Yes pale conjunctiva; Negative for scleral icterus Neck no lymphadenopathy, supple and no JVD Neck Narrative: Trachea is midline. There is no dysphonia. There is no stridor. Chest Wall inspection of chest normal and palpation of chest normal Resp No normal respiratory effort and No clear to auscultation bilaterally Auscultation: rhonchi right upper, left lower and right lower Cardio regular rhythm, S1 normal heart sound, S2 normal heart sound and no murmurs Rate: tachycardic GI normal to inspection, nondistended, normoactive bowel sounds, non-tender, non-distended and no masses; Negative for hepatosplenomegaly Back/Spine no CVA tenderness Extremity normal to inspection General Extremety ED: Negative for edema or tenderness General Extremity: Negative for edema Neuro No oriented x3, CN's II-XII intact bilaterally and no sensory deficits noted Sensorium / Orientation: Negative for alert Motor Exam: strength 5/5 throughout Skin no rashes or lesions noted, no wounds and No skin turgor normal General Skin Exam: pallor; Negative for jaundice MDM MDM MDM Narrative Medical decision making narrative: With patient having a pulse ox of 60% and symptoms are associated with vomiting need to entertain possibility of aspiration. Since she is on chemo she was treated with Zosyn which will cover both community-acquired and nosocomial acquired organisms due to aspiration. Clinically she is dehydrated. Liter of normal saline was ordered. She has allergy to contrast and has mouth myeloma. Therefore will not obtain CT of the chest with contrast if needed. Patient is encephalopathic. Need to evaluate for metabolic versus infectious causes. History & Record Review Additional record(s) reviewed:: Prior outpatient record (There is an office note by Dr. Acuna. Her primary diagnosis month myeloma. She also has hyperglycemia due to malignancy.), Prior ED visit and Prior labs Lab Data Attestation: I reviewed the patient's lab results. Lab results narrative: White count is normal at 7.1 thousand. There is a slight shift with no bandemia. Patient is anemic with an H&H of 8.3 and 25.1. She has been anemic in the past and was seen today by oncology for anemia. BUN/creatinine ratio was elevated consistent with dehydration. Calcium is elevated at 12.0 this is due to malignancy. Will treat with fluids. Liver enzymes are slightly elevated AST and ALT are 109 and 51 respectively. Globulin is elevated at 4.3. Suspect this is due to her multi myeloma. Labs: Laboratory Results - last 24 hr 01/04/25 20:40 WBC 7.1 RBC 2.59 L Hgb 8.3 L Hct 25.1 L MCV 96.9 MCH 32.0 MCHC 33.1 RDW Std Deviation 55.4 H RDW Coeff of Antolin 15.9 H Plt Count 163 MPV 10.4 Immature Gran % (Auto) 1.000 H Neut % (Auto) 87.0 H Lymph % (Auto) 7.5 L Robeson % (Auto) 4.4 Eos % (Auto) 0.0 Baso % (Auto) 0.1 Absolute Neuts (auto) 6.1 Absolute Lymphs (auto) 0.53 L Nucleated RBC % 0 Sodium 139 Potassium 3.0 L Chloride 105 Carbon Dioxide 24.5 Anion Gap 9 BUN 26 H Creatinine 1.04 Estim Creat Clear Calc 43.61 L Est GFR (MDRD) Non-Af 56 L BUN/Creatinine Ratio 24.6 H Glucose 120 H Lactic Acid 2.5 H* Calcium 12.0 H Total Bilirubin 0.37 AST 109 H ALT 51 H Alkaline Phosphatase 101 Total Protein 8.1 Albumin 3.8 Globulin 4.3 H Albumin/Globulin Ratio 0.9 ABG Data Attestation: I personally reviewed and interpreted this ABG as follows: Interpretation: ABG revealed an alkalosis. Bicarb is 28.6, total CO2 30, base excess +6, pCO2 36, PO289 which reveals an increased AA gradient since he is on 4 L. ABG results: ABG 01/04/25 20:41 Specimen Type ART Sample Site L Radial pH 7.50 H Bicarbonate Actual 28.6 H Total CO2 30 Base Excess 6 H O2 Saturation 98 O2 % 4.0 ABG pCO2 36.5 ABG pO2 89 Pete Test Positive O2 Delivery Device Cannula Vent Mode Not entered Radiography Diagnostic Testing: Clinical Impression(s) from Imaging Studies Chest X-Ray 01/04/25 21:40 IMPRESSION: No Acute Findings. [facility] Initial EKG: Attestation: I personally reviewed and interpreted this EKG as follows: Interpretation: Sinus Tachycardia (Rate is 117. [place] interval is 106 ms. Cures duration 88 ms. QT duration 288 ms. [place] is normal. There are some nonspecific ST-T wave changes in the inferior leads. There is no evidence of acute ischemia.) Management Discussion w/another healthcare provider: Hospitalist (Spoke with Dr. Louis. Patient to be full admit [facility].) Treatment and Re-Evaluation Comments:: Patient was reassessed at 2234. She was asleep. Pulse ox is 99% on 4 L. Oxygen discontinued. Patient was reassessed 7 minutes later and sat dropped 87%. She was placed on oxygen. Will call hospitalist for admission. Discharge Plan Dx/Rx/DC Orders Clinical Impression: Aspiration into airway, Chronic constipation, Celiac disease, Multiple myeloma, Malignancy associated hypercalcemia, Acute hypoxemic respiratory failure, Nausea & vomiting, Acidosis, lactic, Acute encephalopathy Disposition Disposition: Acute Care [facility]
[2025-01-04 20:45] LABS: Allen Test Positive; Base Excess 6 mmol/L (-2 to +2); Bicarbonate 28.6 mmol/L (22-26); Blood Gas Specimen Type ART; Mode Not entered; O2 Delivery Device Cannula; PO2 89 mmHG (75-100); SITE L Radial; SO2 98 % (95-99); Total Carbon Dioxide 30 mmol/L; pCO2 36.5 mmHg (35-45)
[2025-01-04 20:58] LABS: Absolute Lymphocyte Count 0.53 X10^3/uL (0.83-4.51); Absolute Neutrophil Count 6.1 X10^3/uL (2.0-7.7); Basophil# 0.01 X10^3/uL; Basophil% 0.1 % (0-1); Hematocrit 25.1 % (37-47); Hemoglobin 8.3 g/dL (12.0-15.0); Lymphocyte # 0.53 X10^3/ul (0.83-4.51); Lymphocyte % 7.5 % (19-41); Mean Corp Hgb Conc 33.1 g/dL (32-36); Mean Corpuscular Volume 96.9 fL (81-99); Mean Platelet Vol. 10.4 fl (6.2-12.0); Monocyte# 0.31 X10^3/uL; Monocyte% 4.4 % (0-10); NRBC Flagged by Analyzer 0 % (0-5); Neutrophil # 6.13 X10^3/uL (2.7-7.7); POSITIVE DIFFERENTIAL YES; Platelet Count 163 K/mm3 (150-450); RBC Distribution Width CV 15.9 % (11.6-14.6); RBC Distribution Width SD 55.4 fl (35.1-43.9); Red Blood Count 2.59 M/mm3 (4.2-5.4); White Blood Count 7.1 K/mm3 (4.4-11.0)
[2025-01-04] MEDS: Piperacil/Tazobactam 4.5 GM in 0.9% Normal Saline (100mL MB+) 100 ML IV (21:02)
[2025-01-04 21:18] LABS: ALB/GLOB Ratio 0.9 RATIO (0.9-2.4); AST(SGOT) 109 U/L (<=31); Alanine Aminotransfer ALT/SGPT 51 U/L (<=34); Albumin, Serum 3.8 g/dL (3.4-4.8); Alkaline Phosphatase 101 U/L (35-104); Anion Gap 9 (5-15); BUN 26 mg/dL (4-19); BUN/Creat Ratio 24.6 RATIO (10-20); Carbon Dioxide 24.5 mmol/L (21.0-32.0); Chloride 105 mmol/L (98-108); Creatinine, Serum 1.04 mg/dL (0.70-1.20); EST Glomerular Filtration Rate 56 (>60); Estimated Creatinine Clearance 43.61 ml/min (50-250); Globulin 4.3 g/dL (2.2-4.2); Glucose 120 mg/dL (70-99); Protein, Total 8.1 g/dL (5.9-8.4); Sodium Level 139 mmol/L (133-145); Total Bilirubin 0.37 mg/dL (0.00-1.30)
--- NOTE | 2025-01-04 21:40 | RAD_ITS ---
PROCEDURE: CHEST 1 VIEW 01/04/2025 REASON FOR EXAM: COUGH, HYPOXIA AFTER VOMITING TECHNIQUE: Frontal view of the chest. COMPARISON: None FINDINGS: Hardware: None Heart: Mild cardiomegaly. Lungs: Bibasilar atelectasis. No focal consolidation. No pneumothorax. Bones: Remote right-sided rib fractures. Other: RAD/Chest 1 View IMPRESSION: No Acute Findings. Reading Location: [facility]
[2025-01-04 21:48] LABS: Lactic Acid 2.5 mmol/L (0.0-2.0)
--- NOTE | 2025-01-04 22:47 | ED.RN ---
Patient requested water to drink. Per Dr. Galvin, water is allowed. This RN bedside with water for patient. Patient refuses to move bed past 10 degree angle. Bed was above 45 degree angle when patient arrived without discomfort. Patient educated that she cannot have a cup of water to drink while laying flat due to having aspiration pneumonia and worsening condition by increasing choking risk. Patient refused to sit up at all and stated well I don't want the water then.
--- NOTE | 2025-01-04 23:04 | PCM.HP.STD ---
HPI - General General Date of Admission: 01/04/25 Date of Service: 01/04/25 Chief Complaint: N/V, intractable, aspiration event with hypoxia/dyspnea following. HPI Narrative The patient is a 74 y/o F w/ PMHx: Chronic anemia, GERD, HTN, HLD, IBS, Hypothyroidism, Anxiety and Depression, Multiple myeloma, malignancy associated hypercalcemia, CKD stage II per GFR trending who presents to the [facility] ED on 01/04/2025 with nausea, emesis, chills, confusion with chemotherapy on day of presentation for underlying multiple myeloma with recommended transition to the ED for evaluation per her oncologist Dr. Acuna with family reporting multiple bouts of emesis and consistent nausea with noted also mild dyspnea and cough but not productive. EMS upon arrival noted the patient initially than 60% placed on 4 L nasal cannula at that time. In the ED she had initially been confused however this seemed to improved and upon hospitalist evaluation she was oriented to self, place, year, month and very interactive. She does note persistent discomfort in her back which is chronic with her multiple myeloma. Workup in the ED included T98.7, heart rate 130, BP 136/68, respiratory rate 23, 96% on 4 L nasal cannula with most recent repeat vitals T98.9, heart rate 104, BP 115/65, respiratory rate 20, 94% on 4 L, CBC with WBC 7.1, hemoglobin 8.3, MCV 96.9, platelet 163 with increased immature granulocytes and lymphopenia, ABG with pH 7.50 otherwise not marked appearing, CMP with potassium 3.0, BUN/creatinine 26/1.04, GFR 56, glucose 120, lactic acid 2.5, calcium 12, AST/ALT 109/51, chest x-ray with no acute cardiopulmonary findings, EKG with sinus tachycardia with no acute evidence of ischemia. In the ED they did attempt to de-escalate oxygen therapy however patient dropped her saturations to 87% on room air and was placed back on oxygen supplementation. In the ED patient ministered IV Zosyn 4.5 g x 1. PFSH Medical History Hypercalcemia of malignancy Encounter for education Loss of hearing Wears glasses Post-menopausal Anxiety Arthritis Anemia Restless legs Vertigo Gastric reflux Non-smoker Leg cramps History of pain when walking Cardiology follow-up encounter Hypothyroidism Positive PPD HTN (hypertension) History of benign ovarian tumor GERD (gastroesophageal reflux disease) IBS (irritable bowel syndrome) Right sided abdominal pain Home Medications ?Medication ?Instructions ?Recorded ?Last Taken ?Type Omeprazole [Prilosec] 40 mg PO 1500 05/21/16 05/27/16 18:00 History levothyroxine 50 mcg tablet 50 mcg PO DAILY 05/21/16 02/24/23 History metoprolol tartrate 25 mg tablet 25 mg PO LUNCH 05/21/16 05/28/16 05:30 History meloxicam 7.5 mg tablet 7.5 mg PO DAILY 03/20/23 Unknown History calcium carbonate (Calcium 600) 600 mg PO DAILY 10/22/23 Unknown History cholecalciferol (vitamin D3) 50 50 mcg PO DAILY 10/22/23 Unknown History mcg (2,000 unit) capsule mecobalamin (vitamin B12) 500 mcg 500 mcg PO DAILY 04/28/24 Unknown History chewable tablet gabapentin 300 mg capsule 300 mg PO QHS #30 caps 10/10/24 Unknown Rx acetaminophen 500 mg tablet 500 mg PO Q6H PRN pain 12/02/24 Unknown History (Acetaminophen Extra Strength) baclofen 5 mg tablet 5 mg PO BID 12/20/24 Unknown History acyclovir 400 mg tablet 400 mg PO BID #60 tabs 12/22/24 Unknown Rx aspirin 81 mg tablet,delayed 81 mg PO QDAY #30 tabs 12/22/24 Unknown Rx release (Adult Aspirin Regimen) dexamethasone 4 mg tablet 20 mg (5 x 4 mg) PO .COMPLEX #40 12/22/24 Unknown Rx tabs ondansetron 4 mg disintegrating 4 mg PO Q8H PRN nausea and 12/23/24 Unknown Rx tablet vomiting #30 tabs hydrocodone 5 mg-acetaminophen 300 1 tab PO Q6H PRN 01/04/25 Unknown History mg tablet Allergy/AdvReac Type Severity Reaction Status Date / Time Gadolinium-MRI Contrast Allergy Intermediate Hives Verified 01/04/25 19:44 Medium celecoxib (From Celebrex) Allergy Rash Verified 01/04/25 19:44 Iodinated Contrast Media Allergy Itching Verified 01/04/25 19:44 (CONTRASTS) latex Allergy Rash Verified 01/04/25 19:44 shellfish derived Allergy Itching Verified 01/04/25 19:44 naproxen AdvReac Nausea/Vom/ Verified 01/04/25 19:44 Diarrhea nickel (freddie) AdvReac Rash Verified 01/04/25 19:44 Family History Mother Brain cancer Lung cancer Father CVA (cerebral vascular accident) Brother Prostate cancer Surgical History History of esophagogastroduodenoscopy (EGD) Hx of colonoscopy S/P total abdominal hysterectomy H/O oophorectomy H/O foot surgery Hx of cholecystectomy History of appendectomy Social History household members: spouse number of children: 3 current occupational status: retired Smoking Status: Never smoker alcohol intake: never substance use type: does not use additional social history: -Keven- Retired ROS ROS Narrative Admission Review of Systems: CONSTITUTIONAL: No weight loss, fever, + chills, weakness or fatigue. HEENT: Eyes: No visual loss, blurred vision, double vision or yellow sclerae. Ears, Nose, Throat: No hearing loss, sneezing, congestion, runny nose or sore throat. SKIN: No rash or itching, lesions, wounds except + occasional stage ecchymoses, abrasion. CARDIOVASCULAR: No chest pain, chest pressure or chest discomfort, palpitations, edema, orthopnea, syncopal events. RESPIRATORY: No shortness of breath, cough or sputum, wheezing, hemoptysis. GASTROINTESTINAL: + anorexia, nausea, vomiting. No diarrhea, abdominal pain, melena, BRBPR. GENITOURINARY: No dysuria, frequency, urgency or retention. NEUROLOGICAL: + Transient confusion. No headache, dizziness, syncope, paralysis, ataxia, numbness or tingling in the extremities, focal weakness, change in bowel or bladder control, seizure. MUSCULOSKELETAL: + muscle, back pain, joint pain or stiffness. HEMATOLOGIC: No anemia, bleeding or bruising. LYMPHATICS: No enlarged nodes. No history of splenectomy. PSYCHIATRIC: + History of anxiety and depression. ENDOCRINOLOGIC: No reports of sweating, cold or heat intolerance. No polyuria or polydipsia. ALLERGIES: + History of hives. Vital Signs Vital Signs Vital Signs: 01/04/25 19:35 01/04/25 19:42 01/04/25 20:34 Temperature 98.7 F 98.7 F Temperature Source Oral Oral Pulse Rate 130 H 128 H 115 H Respiratory Rate 23 H 26 H 25 H Blood Pressure 136/68 H 136/68 H 119/65 Blood Pressure Mean 90 90 83 Pulse Ox 96 93 96 Oxygen Delivery Method Nasal Cannula Nasal Cannula Oxygen Flow Rate (L/min) 4 4 01/04/25 20:42 01/04/25 22:00 01/04/25 22:07 Temperature 98.5 F 98.9 F 98.9 F Temperature Source Oral Oral Oral Pulse Rate 111 H 104 H Respiratory Rate 20 H 20 H Blood Pressure 123/66 H 115/65 Blood Pressure Mean 85 81 Pulse Ox 95 94 Oxygen Delivery Method Nasal Cannula Nasal Cannula Oxygen Flow Rate (L/min) 4 4 Weight Weight: 144 lb 13.499 oz Body Mass Index (BMI) 24.8 Physical Exam Narrative Physical Examination: General: Awake, alert, oriented to self, place, year, month, recent events, significantly improved since initial ED arrival, range cooperative, laying in ED bed, notes ongoing persistent pain in her back which is chronic with her multiple myeloma. Skin: Normal color, normal turgor, no icterus, no cyanosis occasional stage ecchymoses, abrasion. HEENT: AT/NC, EOMI, PERRLA, dry MM, no carotid bruits or JVD noted. Lungs: Diminished, greater bases, mildly increased respiratory rate but no distress, no rales, ronchi or wheezing. Heart: Mildly tachycardic with regular rhythm; no gallop, rub audible. Abdomen: Soft, NTTP, ND, hyperactive BS, no appreciated HSM. Extremities: No cyanosis, clubbing, or edema. Neurological: Patient awake, alert, oriented as noted, cognitive function improved since initial ED arrival, currently appears intact; pupils equally reactive to light and accommodation, cranial nerves gross normal, moving all 4 extremities, no focal deficits, strength moderately to severely global decrease secondary to acute presentation. Psychiatric: Affect appears fatigued, uncomfortable, no acute evidence of depressive or anxiety feelings but does have underlying history. Results Lab / Micro Data 01/04/25 20:40 01/04/25 20:40 Labs: Laboratory Results - last 24 hr 01/04/25 20:40: WBC 7.1, RBC 2.59 L, Hgb 8.3 L, Hct 25.1 L, MCV 96.9, MCH 32.0, MCHC 33.1, RDW Std Deviation 55.4 H, RDW Coeff of Antolin 15.9 H, Plt Count 163, MPV 10.4, Immature Gran % (Auto) 1.000 H, Neut % (Auto) 87.0 H, Lymph % (Auto) 7.5 L, [place] % (Auto) 4.4, Eos % (Auto) 0.0, Baso % (Auto) 0.1, Absolute Neuts (auto) 6.1, Absolute Lymphs (auto) 0.53 L, Nucleated RBC % 0, Sodium 139, Potassium 3.0 L, Chloride 105, Carbon Dioxide 24.5, Anion Gap 9, BUN 26 H, Creatinine 1.04, Estim Creat Clear Calc 43.61 L, Est GFR (MDRD) Non-Af 56 L, BUN/Creatinine Ratio 24.6 H, Glucose 120 H, Lactic Acid 2.5 H*, Calcium 12.0 H, Total Bilirubin 0.37, AST 109 H, ALT 51 H, Alkaline Phosphatase 101, Total Protein 8.1, Albumin 3.8, Globulin 4.3 H, Albumin/Globulin Ratio 0.9 ABG Data ABG results: ABG 01/04/25 20:41 Specimen Type ART Sample Site L Radial pH 7.50 H Bicarbonate Actual 28.6 H Total CO2 30 Base Excess 6 H O2 Saturation 98 O2 % 4.0 ABG pCO2 36.5 ABG pO2 89 Pete Test Positive O2 Delivery Device Cannula Vent Mode Not entered Imaging Radiology Impression Chest X-Ray 01/04/25 21:40 IMPRESSION: No Acute Findings. Reading Location: [facility] Assessment & Plan Assessment/Plan (1) Acute hypoxemic respiratory failure: (2) Aspiration into airway: PLAN: Plan The patient is a 74 y/o F w/ PMHx: Chronic anemia, GERD, HTN, HLD, IBS, Hypothyroidism, Anxiety and Depression, Multiple myeloma, malignancy associated hypercalcemia, CKD stage II per GFR trending who presents to the [facility] ED on 01/04/2025 with nausea, emesis, chills, confusion with chemotherapy on day of presentation for underlying multiple myeloma with recommended transition to the ED for evaluation per her oncologist Dr. Acuna with family reporting multiple bouts of emesis and consistent nausea with noted also mild dyspnea and cough but not productive. #1. Acute Transient Encephalopathy secondary to Acute hypoxic respiratory failure (oxygenation 60% with aspiration event documented per EMS) with associated dyspnea suspected secondary to aspiration event with possible pneumonitis: Will admit to MS, maintain on oxygen with wean as tolerated to room air, PRN albuterol, maintained on IV Zosyn given concern for aspiration with recent bouts of nausea and emesis to be cautious with repeat planned PA and lateral chest x-ray in a.m. with de-escalation of antibiotics if appropriate but given immunosuppressed status with recent chemotherapy decision to be more aggressive, HOB, IS parameters w/ pending sputum cultures, full respiratory viral panel and urine antigens as well as procalcitonin. #2. Intractable nausea and emesis with as noted concern for aspiration event #1 possibly secondary to recent chemotherapy: Will continue aggressive hydration, if onset of diarrhea will obtain c diff, stool cx, maintain on IV Zosyn given concern for aspiration as noted above with de-escalation as able, certainly could be component of gastroenteritis however high suspicion related to recent chemotherapy, will obtain urinalysis to be cautious, procalcitonin requested as noted above, given current status will initially allow clears only, maintained on IV PPI in the interim. #3. Lactic acidosis: Suspect primarily secondary to dehydration with marked GI losses, continue to aggressively hydrate and trend lactic acid per facility protocol. #4. Hypokalemia: Admission K+ 3.0, magnesium level requested, supplementation given, repeat level in AM. #5. Acute on chronic transaminitis: Suspect related with GI losses, possible dehydration component, admission AST/ALT 109/51, total bilirubin 0.37, alk phos 101, will continue to hydrate, repeat CMP in AM. #6. Multiple myeloma on active chemotherapy with malignancy associated hypercalcemia: Patient with recent chemotherapy on day of presentation, suspect nausea and emesis likely related however investigating further as noted, will obtain magnesium and phosphorus levels, calcium is notably elevated at 12, will continue aggressive hydration and repeat CMP, ionized calcium requested. If persistent hypercalcemia may investigate further or may opt to treat if intractable. #7. Chronic Kidney Disease Stage II per previous GFR trending: Admission BUN/Cr 26/1.04, GFR 56, baseline renal function primarily 0.8-0.9, repeat BMP in AM. #8. Chronic normocytic anemia: Admission hemoglobin 8.3, MCV 96.9, baseline hemoglobin more recently primarily 8-9 range, stable, continue to trend. #9. Hypertension: Given BP low normal will temporally hold hypertensive regimen, add back once appropriate. #10. Hyperlipidemia: Per current list does not appear to be on regimen, defer to outpatient. #11. GERD: Will maintain on temporarily on IV PPI as noted. #12. Hypothyroidism: Continue patient home levothyroxine regimen. #13. Anxiety and depression: Per current list does not appear to be on chronic regimen, encourage aggressive follow-up and evaluation especially given underlying cancer diagnosis. #14. DVT prophylaxis: Lovenox. #15. CODE status: Patient APRIL is her she notes and living will is currently in place. Discussed CODE status at length including difference between FULL code, DNR-CCA and DNR-CC status. Following discussions about the differences in these status, requested DNR-CCA, no intubation status. Given her orientation is completely normal at this time we will continue this CODE STATUS per her request. Advanced Care Planning Face to Face Time: 16 minutes. Charges/Coding Visit Charges Inpatient E&M: 63798 Init Hosp L3 Procedures Hospitalists Procedures: 94098 Advncd Care Plan 30 Min
[2025-01-04 23:32] LABS: Magnesium 1.5 mg/dL (1.5-2.2); Phosphorus 1.7 mg/dL (2.7-4.5)
[2025-01-05] VITALS (14 sets, daily range): BP systolic 97–119; BP diastolic 46–71; PULSE 68–96; RESP 15–18; TEMP 36.6–36.8; O2SAT 94–100; BMI 23.1
[2025-01-05] MEDS: 0.9% Normal Saline (1000mL) 1,000 ML 100 ML IV (00:19)
[2025-01-05] MEDS: Pantoprazole Sodium 40 MG in 0.9% Normal Saline (100mL MB+) 100 ML 330 MG IV ×3 (00:26→21:04)
[2025-01-05] MEDS: 0.9% Saline Lock 10 ML Syringe IV (00:27)
[2025-01-05] MEDS: 0.9% Normal Saline (100mL Bag) 100 ML 15 ML IV ×2 (00:35→21:08)
[2025-01-05] MEDS: Potassium Chloride 10mEq/100mL 10 MEQ/100 ML IV.SOLN. 100 MEQ IV BOLUS ×3 (00:36→03:10)
[2025-01-05 00:52] LABS: Reflex Lactate? Y
[2025-01-05 00:55] LABS: Ionized Calcium Order 1.46
[2025-01-05 00:56] LABS: Mucous, Urine 0 SEEN /hpf (<or=2+); Red Blood Cells-Urine 0 SEEN /hpf (0-5)
[2025-01-05 00:56] LABS: Procalcitonin 3.39 ng/mL (<=0.10)
[2025-01-05 00:59] LABS: Color, Urine Yellow (Yellow); Glucose, Dipstick 50 mg/dl (Normal); Ketone-Dipstick Negative (Negative); Leukocyte Esterase-Dipstick Negative /ul (Negative); Nitrite-Dipstick Negative (Negative); Occult Blood-Urine 25 /ul (Negative); Protein-Dipstick 30 mg/dl (Negative); Urine Bilirubin Dipstick Negative (Negative); Urine Clarity Sl. Cloudy (Clear); Urine Urobilinogen Normal (Normal)
[2025-01-05 01:07] LABS: Bacteria 2+ /hpf (None Seen); Calcium Oxalate Crystals Ur 2+ /hpf (<or=2+); Squamous Epithelial Cells - UA 0-5 SEEN /hpf (5-10); White Blood Cells 0-5 SEEN /hpf (0-5)
[2025-01-05 01:19] LABS: Lactic Acid 2.2 mmol/L (0.0-2.0)
[2025-01-05] MEDS: Levothyroxine 50 MCG Tablet PO (05:41)
[2025-01-05] MEDS: Piperacil/Tazobactam 3.375 GM in 0.9% Normal Saline (50mL MB+) 50 ML IV ×3 (05:42→21:04)
[2025-01-05] MEDS: HYDROcodone Bitartrate/Apap 5/325 Tablet PO ×3 (08:12→23:21)
[2025-01-05] MEDS: Aspirin E.C. 81 MG Tablet PO (08:12)
[2025-01-05] MEDS: Baclofen 10 MG Tablet 5 MG PO ×2 (08:13→20:49)
[2025-01-05] MEDS: Enoxaparin 40 MG/0.4 ML Syringe SC (08:14)
[2025-01-05] MEDS: Acyclovir 200 MG Capsule 400 MG PO ×2 (08:14→23:24)
[2025-01-05] MEDS: Ondansetron 4 MG/2 ML Vial IV (08:21)
--- NOTE | 2025-01-05 08:34 | RAD_ITS ---
PROCEDURE: CHEST PA AND LATERAL 01/05/2025 REASON FOR EXAM: ASPIRATION EVENT TECHNIQUE: Frontal and lateral views of the chest. COMPARISON: January 04, 2025 FINDINGS: Heart size is upper normal. Central vascularity appears within normal limits. There are increased interstitial markings in the medial right and left lung base and perihilar region, similar to the prior. There is no pneumothorax or effusion. Vertebroplasty changes noted in the lower thoracic region with kyphosis. Dextroscoliosis is similar to the prior. Surgical clips are noted in the right upper quadrant. RAD/Chest PA and Lateral IMPRESSION: There are increased interstitial markings in the medial right and left lung bas e and perihilar region, similar to the prior. Reading Location: [facility]
[2025-01-05 08:36] LABS: Absolute Lymphocyte Count 0.85 X10^3/uL (0.83-4.51); Absolute Neutrophil Count 5.6 X10^3/uL (2.0-7.7); Eosinophil# 0.02 X10^3/uL; Eosinophils% 0.3 % (0-5); Hematocrit 21.5 % (37-47); Lymphocyte # 0.85 X10^3/ul (0.83-4.51); Lymphocyte % 12.8 % (19-41); Mean Corp Hgb Conc 32.6 g/dL (32-36); Mean Corpuscular Hgb 32.3 pg (27.0-32.0); Mean Corpuscular Volume 99.1 fL (81-99); Mean Platelet Vol. 11.1 fl (6.2-12.0); Monocyte# 0.21 X10^3/uL; Monocyte% 3.2 % (0-10); NRBC Flagged by Analyzer 0 % (0-5); Neutrophil # 5.55 X10^3/uL (2.7-7.7); Neutrophil % 83.2 % (47-70); Platelet Count 139 K/mm3 (150-450); RBC Distribution Width CV 16.2 % (11.6-14.6); RBC Distribution Width SD 58.4 fl (35.1-43.9); Red Blood Count 2.17 M/mm3 (4.2-5.4); White Blood Count 6.7 K/mm3 (4.4-11.0)
[2025-01-05 09:20] LABS: ALB/GLOB Ratio 0.8 RATIO (0.9-2.4); AST(SGOT) 73 U/L (<=31); Alanine Aminotransfer ALT/SGPT 37 U/L (<=34); Albumin, Serum 3.1 g/dL (3.4-4.8); Alkaline Phosphatase 76 U/L (35-104); Anion Gap 7 (5-15); BUN 24 mg/dL (4-19); BUN/Creat Ratio 24.5 RATIO (10-20); Calcium,Total 9.9 mg/dL (7.6-11.0); Carbon Dioxide 21.2 mmol/L (21.0-32.0); Chloride 112 mmol/L (98-108); Creatinine, Serum 0.96 mg/dL (0.70-1.20); EST Glomerular Filtration Rate 61 (>60); Estimated Creatinine Clearance 43.72 ml/min (50-250); Globulin 3.7 g/dL (2.2-4.2); Glucose 108 mg/dL (70-99); Potassium 3.6 mmol/L (3.3-5.1); Protein, Total 6.8 g/dL (5.9-8.4); Sodium Level 141 mmol/L (133-145); Total Bilirubin 0.33 mg/dL (0.00-1.30)
[2025-01-05] MEDS: Potassium Phosphate 40 MM in 0.9% Normal Saline (500mL Bag) 500 ML 62.5 MM IV (09:25)
[2025-01-05] MEDS: dexAMETHasone 20 MG/5 ML Vial IV (10:26)
--- NOTE | 2025-01-05 11:26 | PCM.PN.HOSP ---
Reason for Visit Reason for Visit: Diagnoses Acute respiratory failure with hypoxia (01/04/25) Unspecified foreign body in respiratory tract, part unspecified causing other injury, initial encounter (01/04/25) Subjective Subjective Saw patient at bedside this morning. Patient was fatigued appearing but otherwise sitting back fairly comfortably in bed, answering questions appropriately and in no acute distress. She was alert and oriented. Denied any nausea currently. Did report ongoing chronic low back pain. Reported mild fatigue this morning, similar to previous days. No other new concerns today. Objective Data Objective Data Vital Signs: Vital Signs Temp Pulse Resp BP Pulse Ox O2 Del Method O2 Flow Rate 98 F 94 16 106/66 100 Nasal Cannula 2 01/05/25 08:42 01/05/25 08:42 01/05/25 08:42 01/05/25 08:42 01/05/25 08:42 01/05/25 08:42 01/05/25 08:42 Oxygen Flow Rate (L/min) 2 Oxygen Delivery Method Nasal Cannula Weight: 61.3 kg Body Mass Index (BMI) 23.1 Intake & Output: Intake and Output for Last 24 Hours 01/03/25 01/04/25 01/05/25 23:59 23:59 23:59 Intake Total 250 / 250 1414.92 / 1414.92 Output Total 300 / 300 Balance 250 / 150 1114.92 / 1114.92 Lab / Micro Data 01/05/25 07:36 01/05/25 07:36 Labs: Laboratory Results - last 24 hr 01/04/25 09:14: Blood Type O POSITIVE, Antibody Screen NEGATIVE, Crossmatch See Detail 01/04/25 20:40: WBC 7.1, RBC 2.59 L, Hgb 8.3 L, Hct 25.1 L, MCV 96.9, MCH 32.0, MCHC 33.1, RDW Std Deviation 55.4 H, RDW Coeff of Antolin 15.9 H, Plt Count 163, MPV 10.4, Immature Gran % (Auto) 1.000 H, Neut % (Auto) 87.0 H, Lymph % (Auto) 7.5 L, [place] % (Auto) 4.4, Eos % (Auto) 0.0, Baso % (Auto) 0.1, Absolute Neuts (auto) 6.1, Absolute Lymphs (auto) 0.53 L, Nucleated RBC % 0, Sodium 139, Potassium 3.0 L, Chloride 105, Carbon Dioxide 24.5, Anion Gap 9, BUN 26 H, Creatinine 1.04, Estim Creat Clear Calc 43.61 L, Est GFR (MDRD) Non-Af 56 L, BUN/Creatinine Ratio 24.6 H, Glucose 120 H, Lactic Acid 2.5 H*, Calcium 12.0 H, Phosphorus 1.7 L, Magnesium 1.5, Total Bilirubin 0.37, AST 109 H, ALT 51 H, Alkaline Phosphatase 101, Total Protein 8.1, Albumin 3.8, Globulin 4.3 H, Albumin/Globulin Ratio 0.9, Procalcitonin 3.39 H 01/05/25 00:22: Urine Color Yellow, Urine Clarity Sl. Cloudy, Urine pH 5.0, Ur Specific [place] 1.030, Urine Protein 30 H, Urine Glucose (UA) 50 H, Urine Ketones Negative, Urine Occult Blood 25 H, Urine Nitrite Negative, Urine Bilirubin Negative, Urine Urobilinogen Normal, Ur Leukocyte Esterase Negative, Urine RBC 0 SEEN, Urine WBC 0-5 SEEN, Ur Squamous Epith Cells 0-5 SEEN, Calcium Oxalate Crystal 2+, Urine Bacteria 2+, Urine Mucus 0 SEEN 01/05/25 00:39: Lactic Acid 2.2 H* 01/05/25 07:36: WBC 6.7, RBC 2.17 L, Hgb 7.0 L, Hct 21.5 L, MCV 99.1 H, MCH 32.3 H, MCHC 32.6, RDW Std Deviation 58.4 H, RDW Coeff of Antolin 16.2 H, Plt Count 139 L, MPV 11.1, Immature Gran % (Auto) 0.500, Neut % (Auto) 83.2 H, Lymph % (Auto) 12.8 L, [place] % (Auto) 3.2, Eos % (Auto) 0.3, Baso % (Auto) 0.0, Absolute Neuts (auto) 5.6, Absolute Lymphs (auto) 0.85, Nucleated RBC % 0, Sodium 141, Potassium 3.6, Chloride 112 H, Carbon Dioxide 21.2, Anion Gap 7, BUN 24 H, Creatinine 0.96, Estim Creat Clear Calc 43.72 L, Est GFR (MDRD) Non-Af 61, BUN/Creatinine Ratio 24.5 H, Glucose 108 H, Calcium 9.9, Total Bilirubin 0.33, AST 73 H, ALT 37 H, Alkaline Phosphatase 76, Total Protein 6.8, Albumin 3.1 L, Globulin 3.7, Albumin/Globulin Ratio 0.8 L Micro: Microbiology 01/04/25 23:55 Mucosa - Nasopharyngeal Respiratory Panel (PCR) - Final 01/05/25 00:20 Nasal Secretion MRSA (PCR) - Final 01/05/25 00:22 Urine, Clean Catch Streptococcus pneumoniae Antigen (M - Final 01/05/25 00:22 Urine, Clean Catch Legionella Antigen - Final ABG Data ABG results: ABG 01/04/25 20:41 Specimen Type ART Sample Site L Radial pH 7.50 H Bicarbonate Actual 28.6 H Total CO2 30 Base Excess 6 H O2 Saturation 98 O2 % 4.0 ABG pCO2 36.5 ABG pO2 89 Pete Test Positive O2 Delivery Device Cannula Vent Mode Not entered Radiography Diagnostic Testing: Radiology Impression Chest X-Ray 01/04/25 21:40 IMPRESSION: No Acute Findings. Reading Location: [facility] Chest X-Ray 01/05/25 08:34 IMPRESSION: There are increased interstitial markings in the medial right and left lung base and perihilar region, similar to the prior. Reading Location: [facility] Physical Exam Const alert, no apparent distress and average body habitus Constitutional Narrative: Elderly female, alert, mildly fatigued and somewhat pale appearing, otherwise sitting back fairly comfortably in bed and answering questions appropriately. General Appearance: cooperative and comfortable HEENT normocephalic, head/scalp atraumatic, hearing grossly normal bilaterally, nasal mucous membranes and turbinates normal and moist oral mucous membranes Eyes PERRL, EOMs intact bilaterally and conjunctivae normal Neck full ROM Chest inspection of chest normal Resp normal respiratory effort, normal air movement, no use of accessory muscles and clear to auscultation bilaterally Cardio regular rate, regular rhythm, no murmurs and peripheral pulses 2+ throughout GI normal to inspection, nondistended, normoactive bowel sounds, soft to palpation, non-tender and non-distended Back/Spine normal ROM Extremity normal to inspection and no pedal edema Skin no rashes or lesions noted Psych mental status grossly normal Assessment & Plan Assessment/Plan (1) Malignancy associated hypercalcemia: (2) Aspiration pneumonia: PLAN: Plan Patient is a 74-year-old female who presented to [facility] ED on 01/04/25 with shortness of breath, nausea/vomiting and confusion. 1. Acute hypoxia with concern for aspiration pneumonia, improving ? Presented with hypoxia in the 60% range on room air and reported witnessed aspiration event. Improved quickly on supplemental oxygen and was able to be weaned off oxygen by hospital day 2. Chest x-ray on admit and hospital day 2 with mild increased interstitial markings in medial right lung base. Infectious workup negative to this point. Suspected that aspiration event was secondary to nausea/vomiting and confusion likely in setting of hypercalcemia. No need for speech therapy evaluation at this time. Will continue to treat with IV Zosyn for now. 2. Acute metabolic encephalopathy, resolved ? Was only alert and oriented to person in the ED, not to place or time. Suspect this was secondary to hypercalcemia as noted below. Alert and oriented x 3 on hospital day 2, resolved. 3. Hypercalcemia, improved ? Calcium 12.7 on admit. Presumed hypercalcemia of malignancy in setting of multiple myeloma. Suspected that hypercalcemia was causing her confusion and nausea/vomiting leading to this admission. Given heavy IV fluids on admit and calcium improved to 9.9 by hospital day 2. Continue to monitor daily calcium level. 4. Acute on chronic anemia ? Baseline hemoglobin 8-9. Hemoglobin 8.3 on admit, decreased to 7.0 on hospital day 2 after heavy IV fluid resuscitation. No signs of bleeding noted. Unclear if patient did receive chemotherapy yesterday as noted below which could contribute to anemia. Will give 1 unit of blood today and recheck hemoglobin level tomorrow morning. 5. Recently diagnosed multiple myeloma ? Follows with Dr. Acuna, see office note from 01/04 for further details. Reportedly received first doses of chemotherapy on 01/04 prior to hospitalization but unclear if these doses were received. No inpatient oncology needs, will need close outpatient follow-up after discharge. 6. Elevated lactic acid ? Lactic acid 2.5 on admit, improved with IV fluids. Presumed secondary to dehydration in setting of fluid losses from nausea/vomiting due to hypercalcemia. 7. Hypokalemia, hypophosphatemia ? Potassium 3.0, phosphorus 1.7 on admit. Suspect secondary to GI losses. Replating as needed. 8. Elevated LFTs, improving ? AST 109, ALT 51 on admit. Improving on hospital day 2. No abdominal pain noted. May be secondary to multiple myeloma versus mild ischemia in setting of dehydration. No need for further inpatient monitoring, can repeat in outpatient setting. 9. Acute debility ? PT/OT/case management following. Patient with debility secondary to active cancer along with dehydration on admission. Appreciate therapy recommendations. Chronic medical conditions: ? Hypertension: Holding home Lopressor for now, restart as able. ? Hypothyroidism: Continue home Synthroid. ? GERD: Continue home PPI. ? Chronic pain with neuropathy: Continue home hydrocodone?acetaminophen as needed and gabapentin. DVT prophylaxis: Lovenox CODE STATUS: DNR CCA, DNI Expected disposition: TBD Total clinical time spent by myself addressing the patient's medical issues, reviewing all the data, and collaborating with patient's care team: 35 minutes. Charges/Coding Visit Charges Inpatient E&M: 06267 Subs Hosp L2
--- NOTE | 2025-01-05 14:20 | CASEMGMT ---
RN?CM?PRECAST CONCRETE PRODUCTS INSTALLER?CM?to room to meet with patient for initial transition planning/care coordination?assessment.?RN?CM?introduced self and role at [facility].? Pt voices understanding and consents to?assessment?at this time.? Pt resting in bed in no distress at this time, @ bedside. Pt is A/O at this time and answers all questions appropriately.?? Care providers, pharmacy, and demographics verified/updated at this time. PCP: Dr Stoner Specialists: Dr Tang & CENTRAL OFFICE FRAME WIRER Lynda-GI, Dr Acuna & Sis ROSE,-onc, Dr Angel-radiation onc, Dr Austin-pain mgnt Preferred Pharmacy: [facility] Insurance: Local [employer], [employer] Prescription Benefit:?yes LNOK: , Keven, 3 biological children + step-children Living Arrangements: Lives w/ and son in one-story home w/basement and 2 steps to enter. Pt's grand daughter & grand daughter's boyfriend stay w/them 3 days/week, Pt does not have to go to basement. Pt uses a cane to navigate the steps in /out of home. Over the past month, & son have been assisting w/ADL's. Grand daughter assists a lot w/laundry, cleaning, and cooking when she is there & pt voices much appreciation for this. Transportation:? DME: ?States has the following DME:?shower chair, over-commode toilet riser w/rails, cane, walker. No home O2. If O2 is needed, prefers [employer]. Does not have a pulse ox. Recommended to get & made aware of locations these can be purchased. HHC/SNF: Hx [facility] for a couple weeks in Oct, 2024 after having back fractures. Hx of [facility] & they state was set up through [facility] & they think it was [facility] . Discussed discharge planning. Pt prefers to dc home, if able, and would like [facility] as 1st preference. Pt and state pt just recently saw Dr Austin and he was going to be ordering an MRI to be done as an OP to rule-out further back fx's. She stated when she got up to [facility] yesterday she had a lot of back pain, but today it has not been as painful but states she thins that is d/t being medicated for pain today. Pt and made aware therapy would evaluate and make recommendations and CM or SW would f/u. Pt also made aware, if she does not feel the can return home safely to ask for CM or SW to discuss further options. Pt wishes to return home and states no further concerns with going home at time of discharge.? ?CM?to follow for home oxygen needs and any further discharge planning/needs.? PLAN:??Pt prefers home w/HHC. PT/OT evals pending. Miguelina BSN?RN?CM
--- NOTE | 2025-01-05 14:21 | CHAPLAIN ---
Type of Pastoral Visit _x__ Initial Visit ___ Follow-up Visit ___ On-call Visit ___ General Patient Visit ___ Spiritual Assessment ___ Family Conference ___ Bereavement ___ Rapid Response ___ Code Blue ___ Other (describe below) Pastoral Care Referral From _x__ Patient _x__ Family ___ Nurse ___ Physician ___ Roller Painter ___ Newspaper Illustrator ___ Other (describe below) Sacrament/Intervention _x__ Active listening ___ Anointing ___ Jewish ___ Bereavement ___ Communion _x__ Edie exploration ___ _x__ Life review _x__ Prayer ___ Reconciliation ___ Sacrament of Sick _x__ Supportive presence ___ Wedding ___ Other (describe below) Pastoral Comments this computer operations manager had planned to see patient today in the outpatient pavilion for her cancer treatments; pt had been a referral due to spiritual distress issues of meaning and purpose, spiritual practices and relationship to a Higher Being; patient was admitted due to vomiting and aspirations and possible uti; pt states that she does not remember most of what happened; pt is tearful as she talks about her condition and worries; her worries come from the 'pain that I have all the time', the 'possibilities of more issues', and 'concerns about my family'; pt has a supportive who is in the room with her and whom she describes as my caregiver who does so much for me; in addressing her spiritual concerns, the patient indicates that while she used to be a regular scientologist goer that she has stopped going and has broken off my relationship to organized zoroastrianism; pt admits that this is a stressor for herself at this time and feels badly about it; processed what it means to having stopped going to scientologist and having a continuing relationship with God; pt is encouraged about seeking God and His help rather than just 'doing and going to scientologist'; pt is given support in developing the relationship with God and trusting his help in this difficult time; pt agreed; offer of support to the spouse who asked for prayers and became tearful at this time too; spouse is affirmed in acknowledging his role and the difficulty of being a caregiver and watching someone you love have physical illness; prayer welcomed by both
[2025-01-05] MEDS: Gabapentin 300 MG Capsule PO (21:03)
[2025-01-06 03:15] VITALS: BP 125/70; PULSE 67; RESP 15; TEMP 36.4; O2SAT 98
[2025-01-06 03:36] VITALS: O2SAT 98
[2025-01-06 05:40] VITALS: BMI 23.0
[2025-01-06] MEDS: Piperacil/Tazobactam 3.375 GM in 0.9% Normal Saline (50mL MB+) 50 ML IV (06:40)
[2025-01-06] MEDS: Levothyroxine 50 MCG Tablet PO (06:42)
[2025-01-06 07:58] LABS: Hemoglobin 8.1 g/dL (12.0-15.0); Mean Corp Hgb Conc 32.4 g/dL (32-36); Mean Corpuscular Hgb 31.3 pg (27.0-32.0); Mean Corpuscular Volume 96.5 fL (81-99); Mean Platelet Vol. 10.7 fl (6.2-12.0); Platelet Count 146 K/mm3 (150-450); RBC Distribution Width CV 17.2 % (11.6-14.6); RBC Distribution Width SD 60.6 fl (35.1-43.9); Red Blood Count 2.59 M/mm3 (4.2-5.4); White Blood Count 4.9 K/mm3 (4.4-11.0)
[2025-01-06 08:11] VITALS: BP 138/72; PULSE 72; RESP 18; TEMP 36.5; O2SAT 98
[2025-01-06] MEDS: Baclofen 10 MG Tablet 5 MG PO (08:19)
[2025-01-06] MEDS: Enoxaparin 40 MG/0.4 ML Syringe SC (08:19)
[2025-01-06] MEDS: Aspirin E.C. 81 MG Tablet PO (08:20)
[2025-01-06] MEDS: HYDROcodone Bitartrate/Apap 5/325 Tablet PO ×2 (08:28→14:41)
[2025-01-06 08:46] LABS: Anion Gap 6 (5-15); BUN 21 mg/dL (4-19); BUN/Creat Ratio 22.7 RATIO (10-20); Calcium,Total 9.1 mg/dL (7.6-11.0); Carbon Dioxide 22.7 mmol/L (21.0-32.0); Chloride 110 mmol/L (98-108); Creatinine, Serum 0.92 mg/dL (0.70-1.20); EST Glomerular Filtration Rate 65 (>60); Estimated Creatinine Clearance 45.62 ml/min (50-250); Glucose 92 mg/dL (70-99); Magnesium 1.9 mg/dL (1.5-2.2); Potassium 3.7 mmol/L (3.3-5.1); Sodium Level 139 mmol/L (133-145)
[2025-01-06 09:05] LABS: Phosphorus 2.1 mg/dL (2.7-4.5)
--- NOTE | 2025-01-06 09:30 | CASEMGMT ---
Addendum entered by Maribel Ruiz 01/06/25 11:45: SYDNEE RUDOLPH into pt room, pt aware that [facility] has accepted pt for services and will be in touch with her to set up a time to come to the home. Pt is aware that [facility] has dc'd. She is aware that Palliative Care was notified that she is dc'ing today as well. Pt denies further needs. Addendum entered by Maribel Ruiz 01/06/25 11:30: Received confirmation that pt was dc'd from [facility] on 12/02. Received notification from [facility] that they will accept pt for services. She will set up appt with pt. Original Note: SYDNEE RUDOLPH into pt room, pt sitting up in chair. Pt states that she is aware she is going to go home today. Pt states therapy went well. She is open to the idea of having HHC. Pt states she was recently dc'd from [facility] she thinks but asks for SYDNEE RUDOLPH to double check. Message sent to [facility] via [employer] to confirm. Patient was provided a list of [facility] providers including quality and resource use data and consistent with the patient?s preferred geographic region, medical needs, and insurance network were provided from the [employer] Guide. Pt chose [facility]. Discussed SN, PT, and OT. Pt became tearful when discussing that she wants all of her care to be close to home. Pt states I cry alot. Pt is open to BARROW WORKER HELPER speaking with her. Updated SW. Will add BARROW WORKER HELPER to referral. Pt has Palliative Care set up for next week. Email sent to palliative care to make aware of dc today. TC to [facility], referral made, will await decision to accept.
--- NOTE | 2025-01-06 10:24 | DS.PCM_ITS ---
Providers Date of Admission: 01/04/25 Date of Discharge: 01/06/25 Primary Care Physician: Dr. Femi Stoner DO Reason For Visit: HYPOXIA, ASPIRATION EVENT, N/V Diagnosis Discharge Diagnosis (1) Malignancy associated hypercalcemia: Status: Acute Code(s): E83.52 - Hypercalcemia (2) Aspiration pneumonia: Status: Acute Code(s): J69.0 - Pneumonitis due to inhalation of food and vomit Medications at Discharge Home Medications levothyroxine 50 mcg tablet 50 mcg PO DAILY thyroid 05/21/16 meloxicam 7.5 mg tablet 7.5 mg PO DAILY pain 03/20/23 gabapentin 300 mg capsule 300 mg PO QHS pain #30 caps 10/10/24 baclofen 5 mg tablet 5 mg PO BID spasms 12/20/24 acyclovir 400 mg tablet 400 mg PO BID virus #60 tabs 12/22/24 aspirin 81 mg tablet,delayed release (Adult Aspirin Regimen) 81 mg PO QDAY blood thinner #30 tabs 12/22/24 dexamethasone 4 mg tablet 20 mg (5 x 4 mg) PO .COMPLEX #40 tabs 12/22/24 ondansetron 4 mg disintegrating tablet 4 mg PO Q8H PRN nausea and vomiting #30 tabs 12/23/24 hydrocodone 5 mg-acetaminophen 300 mg tablet 1 tab PO Q6H PRN pain 01/04/25 lenalidomide 10 mg capsule 10 mg PO .day see 01/05/25 omeprazole 40 mg capsule,delayed release 40 mg PO DAILY gerd 01/05/25 amoxicillin 875 mg-potassium clavulanate 125 mg tablet 1 tab PO BID 5 days #10 tabs 01/06/25 metoprolol succinate 25 mg tablet,extended release 24 hr 25 mg PO DAILY HTN 01/06/25 Hospital Course Operations None Procedures EKG and - (Chest x-ray x 2) Summary of Care Provided Minutes Spent on Discharge: 35 Hospital Course: Patient is a 74-year-old female who presented to [facility] ED on 01/04/25 with shortness of breath, nausea/vomiting and confusion. Hospital course as noted below. Patient discharged home with home health care in stable condition on 01/06. 1. Acute hypoxia with concern for aspiration pneumonia, improving ? Presented with hypoxia in the 60% range on room air and reported witnessed aspiration event. Improved quickly on supplemental oxygen and was able to be weaned off oxygen by hospital day 2. Chest x-ray on admit and hospital day 2 with mild increased interstitial markings in medial right lung base. Infectious workup negative. Suspected that aspiration event was secondary to nausea/vomiting and confusion likely in setting of hypercalcemia. No need for speech therapy evaluation at this time. Patient stable on room air by hospital day 2. Treated with IV Zosyn while inpatient and discharged on Augmentin to complete 7-day course of antibiotics total. 2. Acute metabolic encephalopathy, resolved ? Was only alert and oriented to person in the ED, not to place or time. Suspect this was secondary to hypercalcemia as noted below. Alert and oriented x 3 by hospital day 2, resolved. 3. Hypercalcemia, improved ? Calcium 12.7 on admit. Presumed hypercalcemia of malignancy in setting of multiple myeloma. Suspected that hypercalcemia was causing her confusion and nausea/vomiting leading to this admission. Given heavy IV fluids on admit and calcium improved to 9.9 by hospital day 2. Continue close outpatient monitoring. 4. Acute on chronic anemia ? Baseline hemoglobin 8-9. Hemoglobin 8.3 on admit, decreased to 7.0 on hospital day 2 after heavy IV fluid resuscitation. No signs of bleeding noted. Suspect primarily chronic anemia due to multiple myeloma with mild drop from heavy IV fluid resuscitation. Given 1 unit of blood on 01/05, repeat hemoglobin 8.1 on day of discharge. Recommend repeat CBC in 5 to 7 days to ensure hemoglobin remained stable. 5. Recently diagnosed multiple myeloma ? Follows with Dr. Acuna, see office note from 01/04 for further details. Plan was to receive first dose of chemotherapy in 01/04 but patient not able to complete this as she required hospitalization here prior to taking them. No inpatient oncology needs, will need close outpatient follow-up after discharge. 6. Elevated lactic acid ? Lactic acid 2.5 on admit, improved with IV fluids. Presumed secondary to dehydration in setting of fluid losses from nausea/vomiting due to hypercalcemia. 7. Hypokalemia, hypophosphatemia ? Potassium 3.0, phosphorus 1.7 on admit. Suspect secondary to GI losses. Repleted as needed. 8. Elevated LFTs, improving ? AST 109, ALT 51 on admit. Improving on hospital day 2. No abdominal pain noted. May be secondary to multiple myeloma versus mild ischemia in setting of dehydration. No need for further inpatient monitoring, can repeat in outpatient setting. 9. Acute on chronic debility, chronic low back pain with recent kyphoplasty ? PT/OT/case management followed. Patient had recent T10-[address] Austin in early December for changes related to her multiple myeloma. Unfortunately he continued to have pain after this and was given a steroid injection with only some improvement. Was ambulating without significant issue while hospitalized. Okay for discharge home with home health care 01/06 with close outpatient follow-up with pain management. Chronic medical conditions: ? Hypertension: Held home Lopressor while inpatient, okay to resume on discharge. ? Hypothyroidism: Continue home Synthroid. ? GERD: Continue home PPI. ? Chronic pain with neuropathy: Continue home hydrocodone?acetaminophen as needed and gabapentin. Total clinical time spent by myself addressing the patient's medical issues, reviewing all the data, and collaborating with patient's care team: 35 minutes. Physical Exam Const alert, no apparent distress and average body habitus Constitutional Narrative: Elderly female, alert, mildly fatigued but energy improved from admission, otherwise sitting back fairly comfortably in bed and answering questions appropriately. General Appearance: cooperative and comfortable HEENT normocephalic, head/scalp atraumatic, hearing grossly normal bilaterally, nasal mucous membranes and turbinates normal and moist oral mucous membranes Eyes PERRL, EOMs intact bilaterally and conjunctivae normal Neck full ROM Chest inspection of chest normal Resp normal respiratory effort, normal air movement, no use of accessory muscles and clear to auscultation bilaterally Cardio regular rate, regular rhythm, no murmurs and peripheral pulses 2+ throughout GI normal to inspection, nondistended, normoactive bowel sounds, soft to palpation, non-tender and non-distended Back/Spine normal ROM Extremity normal to inspection and no pedal edema Skin no rashes or lesions noted Psych mental status grossly normal Medical Records Data Medical Nutrition Assessment Dietitian: Malnutrition Criteria Met Start: 01/05/25 14:20 Freq: Status: Active Protocol: Document 01/05/25 15:07 SB (Rec: 01/05/25 15:08 SB [id number]) Nutrition Malnutrition Evidence of Yes Malnutrition Exists Malnutrition (severe Acute Illness/Injury ): Evidenced By Suboptimal Energy Intake (Severe),Weight Loss (Severe) Clinical Problem Acute Disease or Injury Related Malnutrition Etiology severe related to inadequate oral intake and increase energy expenditure due to multiple myeloma Signs/Symptoms as evidenced by PO meeting <50% of estimated nutrition needs x 1 month and 10% unintentional weight loss x 1 month. Status Active Problem Recommendation Dietitian Recommend advanced diet to regular diet. Recommendations/ Will update diet order to state gluten free due to Changes celiac disease. Will order 120ml ensure clear TID with meals, prefers mixed lucas flavor, as diet is advanced replace with 120ml chocolate EPHP TID with meals. Will monitor weight trends. Weight / BMI Weight Weight: 61.2 kg Body Mass Index (BMI) 23.0 ABG / Lab / Microbiology Data 01/06/25 07:35 01/06/25 07:35 Laboratory: Laboratory Results - last 24 hr 01/04/25 09:14: Blood Type O POSITIVE, Antibody Screen NEGATIVE, Crossmatch See Detail 01/06/25 07:35: WBC 4.9, RBC 2.59 L, Hgb 8.1 L, Hct 25.0 L, MCV 96.5, MCH 31.3, MCHC 32.4, RDW Std Deviation 60.6 H, RDW Coeff of Antolin 17.2 H, Plt Count 146 L, MPV 10.7, Sodium 139, Potassium 3.7, Chloride 110 H, Carbon Dioxide 22.7, Anion Gap 6, BUN 21 H, Creatinine 0.92, Estim Creat Clear Calc 45.62 L, Est GFR (MDRD) Non-Af 65, BUN/Creatinine Ratio 22.7 H, Glucose 92, Calcium 9.1, Phosphorus 2.1 L, Magnesium 1.9 Microbiology: Microbiology 01/04/25 23:55 Mucosa - Nasopharyngeal Respiratory Panel (PCR) - Final 01/05/25 00:20 Nasal Secretion MRSA (PCR) - Final 01/05/25 00:22 Urine, Clean Catch Streptococcus pneumoniae Antigen (M - Final 01/05/25 00:22 Urine, Clean Catch Legionella Antigen - Final D/C Instructions DC O2, CPAP, BIPAP Needs Home O2 Discharge instructions: No Meaningful Use Info Meaningful Use Meaningful Use Diagnoses (Choose all that apply): None applicable Ischemic Stroke Statin Dosing Therapy Reference: STATIN DOSE THERAPY REFERENCE: * Patients > 75 years receive moderate or high dose statin therapy. * Patients 75 years or YOUNGER should receive HIGH intensity statin dose unless contraindicated. You will be required to document reason for non-treatment if statin daily dose does not meet guidelines. HIGH DOSE STATIN THERAPY DAILY Atorvastatin > than or = to 40 mg Rosuvastatin > than or = to 20 mg Amlodipine + Atorvastatin > than or = to 2.5/40 mg Ezetimibe + Simvastatin 10/80 mg Simvastatin 80mg Discharge Plan Admission Admit Date/Time: 01/04/25 23:06 Primary Reason for Your Visit: Confusion, nausea with vomiting and shortness of breath Attending Provider: Richard Dias Primary Care Provider: Femi Stoner Consulting Providers: Soumya Louis Instructions Additional Instructions / Restrictions: Take 5 days of Augmentin to complete course of antibiotics for concern for aspiration pneumonia. Follow-up with your cancer doctor in the office soon after discharge. Discharge Orders/Prescriptions Prescriptions: New amoxicillin-pot clavulanate 875-125 mg tablet 1 tab PO BID 5 Days Qty: 10 0RF Continued meloxicam 7.5 mg tablet 7.5 mg PO DAILY baclofen 5 mg tablet 5 mg PO BID aspirin [Adult Aspirin Regimen] 81 mg tablet,delayed release (DR/EC) 81 mg PO QDAY Qty: 30 3RF dexamethasone 4 mg tablet 20 mg PO .COMPLEX Qty: 40 6RF Rx Instructions: 20 mg orally daily on chemotherapy days and the day after acyclovir 400 mg tablet 400 mg PO BID Qty: 60 1RF ondansetron 4 mg tablet,disintegrating 4 mg PO Q8H PRN (Reason: nausea and vomiting) Qty: 30 2RF hydrocodone-acetaminophen 5-300 mg tablet 1 tab PO Q6H PRN (Reason: pain) levothyroxine 50 MCG tablet 50 mcg PO DAILY gabapentin 300 mg capsule 300 mg PO QHS Qty: 30 0RF lenalidomide 10 mg capsule 10 mg PO .day omeprazole 40 mg capsule,delayed release(DR/EC) 40 mg PO DAILY No Action metoprolol succinate 25 mg tablet extended release 24 hr 25 mg PO DAILY Patient Comments: takes 1x daily Referrals / Follow Up: Femi Stoner DO [Primary Care Provider] - Ruth Acuna MD [Med Staff - Active Staff] - Disposition Disposition (needs filled in before D/C Order can be placed): Home Health Service Charges/Coding Visit Charges Inpatient E&M: 66056 Disch Hosp >30min
[2025-01-06] MEDS: Acyclovir 200 MG Capsule 400 MG PO (10:40)
[2025-01-06] MEDS: Pantoprazole Sodium 40 MG in 0.9% Normal Saline (100mL MB+) 100 ML 330 MG IV (10:41)
[2025-01-06] MEDS: Na Biphos/Potassium Phosphate PACKET 1 PACKET PO ×2 (10:42→12:18)
[2025-01-06] MEDS: Piperacil/Tazobactam 3.375 GM/50 ML ML IV (14:41)
[2025-01-06 14:42] VITALS: BP 111/60; PULSE 86; RESP 18; TEMP 36.9; O2SAT 98
--- NOTE | 2025-01-06 16:31 | CASEMGMT ---
Social Work- SW met with pt/pt spouse to offer support and resources. Pt was tearful following conversation with her brother. Pt spouse explains that she has been a very healthy person and has struggled with recent diagnosis. SW discussed resources such as support groups, [place], and mental health resources. Pt reports to be a private person and not interested in resources at this time. SW remains available to follow. MIRACLE Norton
== END 2025-01-06 17:53 | disposition home health service (06) | DRG 177 ==
LOC: ED 22:47 → MS3 23:16
PROVIDERS: Admitting Provider Family Medicine; Emergency Provider Emergency Medicine; PCP Family Medicine; Visit Provider Hospitalist
DX: J69.0 Pneumonitis due to inhalation of food and vomit (principal); J96.01 Acute respiratory failure with hypoxia; E43 Unspecified severe protein-calorie malnutrition; G93.41 Metabolic encephalopathy; C90.00 Multiple myeloma not having achieved remission; Z66 Do not resuscitate; I12.9 Hypertensive chronic kidney disease with stage 1 through stage 4 chronic kidney disease, or unspecified chronic kidney disease; E03.9 Hypothyroidism, unspecified; D63.0 Anemia in neoplastic disease; N18.2 Chronic kidney disease, stage 2 (mild); E78.5 Hyperlipidemia, unspecified; K21.9 Gastro-esophageal reflux disease without esophagitis; E87.6 Hypokalemia; E83.52 Hypercalcemia; G62.9 Polyneuropathy, unspecified; M54.50 Low back pain, unspecified; E83.39 Other disorders of phosphorus metabolism; T45.1X5A Adverse effect of antineoplastic and immunosuppressive drugs, initial encounter; G89.29 Other chronic pain; Z79.82 Long term (current) use of aspirin; Z79.899 Other long term (current) drug therapy; Z68.24 Body mass index [BMI] 24.0-24.9, adult
CPT/HCPCS: 36415; 36600; 71045; 71046; 80048; 80053; 81001; 82803; 83605; 83735; 84100; 84145; 85025; 85027; 86850; 86900; 86901; 87040; 87449; 87633; 87641; 93005; 94668; 97162; 97166; 97530; 99285; J3489; J9144; P9016; A4216; J2405; J9041

== ENCOUNTER → 2025-01-18 | Outpatient (CLI) | payer MEDICARE, OTHER, SELFPAY ==
--- NOTE | 2025-01-18 13:12 | MRI_ITS ---
PROCEDURE: SPINE THORACIC (ROUTINE) 01/18/2025 REASON FOR EXAM: MULTIPLE MYELOMA; COMPRESSION FRACTURE; PAIN TECHNIQUE: Noncontrast thoracic spine MRI. Multiplanar and multisequence images were obtained. COMPARISON: MRI cervical spine 10/12/2024 FINDINGS: Vertebrae: Redemonstration severe compression deformity T12 vertebral body, also slightly progressed since prior. There is a proximally 90% loss of disc height and moderate retropulsion. There is also been interval postoperative changes of kyphoplasty. At T9, there is an acute-subacute endplate fracture, new since the prior examination. Increased signal intensity at T10 without loss of disc height, also concerning for an acute-subacute fracture. Remainder of the thoracic vertebral body heights are within normal limits.. T8 osseous hemangioma. Heterogenous marrow signal intensity with scattered areas of suspicious marrow replacement, for example at T4 vertebral body (series 17, image 11), concerning for myelomatous involvement. Disc spaces are maintained. Alignment: Exaggeration of the thoracic kyphosis, slightly progressed compared with the MRI from 10/12/2024 Spinal Cord: Thoracic spinal cord is of normal size and signal intensities. No thoracic spinal cord lesions are identified. Disc spaces: Disc spaces are grossly maintained. Paraspinal Tissues: Paraspinal tissues are within normal limits. Multilevel degenerative changes, including disc bulges, mild facet degenerative change and ligamentum flavum hypertrophy with up to moderate canal stenosis at T12-L1, accentuated by the retropulsion from the compression deformity at this level. Otherwise, no significant canal stenosis or moderate neural foraminal narrowing. MRI/Spine Thoracic (Routine) IMPRESSION: 1. Interval postoperative changes T12 kyphoplasty with slight progression of pr eviously noted severe compression deformity with moderate retropulsion and resultant moderate canal stenosis. 2. Acute-subacute compression deformities at T9 and T10 with mild loss of disc height at T9. 3. A few areas of suspicious marrow replacement as described above, for example at T4 concerning for myelomatous involvement. 4. Degenerative changes, most prominent at T12-L1 secondary to retropulsion fro m the compression deformity. 5. No suspicious cord signal abnormality. Reading Location: [facility]
--- NOTE | 2025-01-18 13:12 | MRI_ITS ---
PROCEDURE: SPINE LUMBAR (ROUTINE) 01/18/2025 REASON FOR EXAM: MULTIPLE MYELOMA; COMPRESSION FRACTURE; PAIN TECHNIQUE: Multiplanar and multisequence images were obtained without IV contrast administration. COMPARISON: None FINDINGS: Vertebrae: Mild subacute compression deformity L4 vertebral body, with less than 10% loss of disc height. Additional compression deformity L1 and L2 vertebral bodies which are likely chronic. Scattered foci of T1 hypointense marrow replacement, throughout the lumbar spine, concerning for myelomatous involvement. Alignment: Lumbar lordosis is maintained. Grade 1 anterolisthesis of L2 on L3. Conus Medullaris: Conus terminates at L1 and is of normal caliber and signal intensity. Cauda equina nerve roots are within normal limits. Multilevel degenerative changes of the lumbar spine, including disc bulges, facet degenerative changes, ligamentum flavum hypertrophy. L1-2: Small circumferential disc bulge and mild facet degenerative changes with flattening of the ventral thecal sac. No significant canal stenosis or neural foraminal narrowing. L2-3: Small circumferential disc bulge, ligamentum flavum hypertrophy and facet degenerative changes with flattening of the ventral thecal sac. No significant canal stenosis. Mild bilateral neural foraminal narrowing. L3-4: Small circumferential disc bulge, ligamentum flavum hypertrophy and facet degenerative changes, with moderate canal stenosis. Mild-moderate bilateral neural foraminal narrowing. L4-5: Circumferential disc bulge and small focal disc protrusion, facet degenerative changes and ligamentum flavum hypertrophy, with moderate canal stenosis. Mild left subarticular recess narrowing. L5-S1: Small circumferential disc bulge and facet degenerative changes without significant canal stenosis. Neural foramina are patent. Sacrum: Heterogenous marrow signal, suspicious for myelomatous involvement. Paraspinal musculature is within normal limits. MRI/Spine Lumbar (Routine) IMPRESSION: 1. Mild subacute compression deformity L4 and likely remote L1 and L2 compressi on deformities. 2. Scattered foci of suspicious marrow replacement, concerning for myelomatous involvement. 3. Multilevel degenerative changes, most prominent at L3-L4 and L4-L5, with up to moderate canal stenosis and neural foraminal narrowing. Reading Location: [facility]
== END | disposition home or self-care (01) ==
PROVIDERS: PCP Family Medicine; Referring Provider Nurse Practitioner Family; Visit Provider Nurse Practitioner Family
DX: C90.00 Multiple myeloma not having achieved remission (principal)
CPT/HCPCS: 72146; 72148

== ENCOUNTER → 2025-03-09 | Outpatient (CLI) | payer MEDICARE, OTHER, SELFPAY ==
--- NOTE | 2025-03-09 11:34 | RAD_ITS ---
PROCEDURE: LUMBAR SPINE 2 OR 3 VIEWS 03/09/2025 REASON FOR EXAM: SPONDYLOSIS LUMBAR REGION TECHNIQUE: LUMBAR SPINE 2 OR 3 VIEWS COMPARISON: 01/18/2025 MRI. FINDINGS: No evidence acute fracture or dislocation. T11 and T12 vertebroplasties. Similar to the prior MRI is superior endplate compression of L1 and L2. No spondylolisthesis. Moderate discogenic degenerative changes. Surgical clips are present. RAD/Lumbar Spine 2 or 3 Views IMPRESSION: As above. Reading Location: [id number]
== END | disposition home or self-care (01) ==
LOC: RAD 11:26
PROVIDERS: PCP Family Medicine; Referring Provider Anesthesiology Pain Medicine; Visit Provider Anesthesiology Pain Medicine
DX: M47.817 Spondylosis without myelopathy or radiculopathy, lumbosacral region (principal); M47.816 Spondylosis without myelopathy or radiculopathy, lumbar region
CPT/HCPCS: 72100

== ENCOUNTER → 2025-08-01 | Outpatient (CLI) | payer MEDICARE, OTHER, SELFPAY ==
--- NOTE | 2025-08-01 14:30 | BI_ITS ---
EXAM: SCRN MAMM (CAD)W/SHARAD BILAT DATE: 08/01/2025 CLINICAL HISTORY: F, Age 74 y/o , ANNUAL SCREENING TECHNIQUE: Procedure Code: [id number] Modality: MG Procedure: SCRN MAMM (CAD)W/SHARAD BILAT COMPARISON: Prior exam(s) were compared FINDINGS: TISSUE DENSITY: The breasts are heterogeneously dense, which may obscure small masses. Bilateral Breast Mammographic Findings: No significant masses, calcifications or other abnormalities are identified. BI/SCRN MAMM (CAD)W/SHARAD BILAT IMPRESSION: No mammographic evidence of malignancy in either breast. OVERALL FINAL ASSESSMENT BI-RADS 1: NEGATIVE. RECOMMENDATION: Routine annual follow-up in 1 Year Additional Recommendation none A letter with findings and recommendations will be mailed to the patient. Reading Location: [id number]
== END | disposition home or self-care (01) ==
PROVIDERS: PCP Internal Medicine; Referring Provider Internal Medicine Hematology & Oncology; Visit Provider Internal Medicine Hematology & Oncology
DX: Z12.31 Encounter for screening mammogram for malignant neoplasm of breast (principal)
CPT/HCPCS: 77063; 77067

== ENCOUNTER 2025-08-14 09:40 | Emergency (ER) | payer MEDICARE, OTHER, SELFPAY ==
[2025-08-14 09:40] VITALS: BP 155/67; PULSE 73; RESP 18; TEMP 36.7; O2SAT 99; BMI 20.7
--- NOTE | 2025-08-14 09:57 | RAD_ITS ---
PROCEDURE: CHEST PA AND LATERAL 08/14/2025 REASON FOR EXAM: COUGH, CHEST CONGESTION, FEVERS TECHNIQUE: Procedure Code: RADCXR Modality: DX Procedure: CHEST PA AND LATERAL COMPARISON: 01/05/2025 FINDINGS: LUNGS AND PLEURA: No focal airspace consolidation. No pleural effusion or pneumothorax. HEART AND MEDIASTINUM: The cardiac silhouette is mildly enlarged. The mediastinal contour is normal. AORTA: Calcified thoracic aorta. BONES: No acute osseous abnormality. Chronic compression deformities at multiple vertebral levels. Prior T11 and T12 kyphoplasties. Old rib fractures bilaterally. RAD/Chest PA and Lateral IMPRESSION: NO ACUTE FINDINGS. Reading Location: [id number]
--- NOTE | 2025-08-14 09:58 | EX.ED.VIS.UR ---
HPI HPI - URI History of Present Illness Chief Complaint: Cold Sx Informant: patient and spouse/S.O. Narrative Narrative: Patient is a 75-year-old female with a history of multiple myeloma presenting with chest pain, cough, and rhinorrhea. - Reports a drippy nose for about a week, initially clear but now producing yellow discharge when blown. - Developed a cough 2 days ago, accompanied by chest pain described as pressure and burning. - Experienced a low-grade fever of 100?F yesterday morning, but not since. - Mild dyspnea at rest, not worsened by walking; denies significant ambulation due to back fractures. - Decreased appetite noted. - Recent evaluation by a physician included lung, ear, and throat examination, with negative COVID, RSV, and flu tests. - Last chemotherapy session was not this week; next session scheduled for Friday. - Last blood work was performed approximately 2 weeks ago. [facility] ED Constitutional Constitutional ED: Reports fever(s); Denies chills ENT ENT ED: Reports ear pain bilateral (some pressure), nasal congestion, rhinorrhea and sore throat Cardiovascular Cardiovascular: Denies chest pain or palpitations Respiratory/Chest Respiratory/Chest: Reports chest congestion, cough and dyspnea; Denies dyspnea on exertion or sputum Gastrointestinal Gastrointestinal: Denies abdominal pain, diarrhea, nausea or vomiting Genitourinary Genitourinary ED: Denies dysuria or hematuria Musculoskeletal Musculoskeletal: Denies myalgias or neck pain Integumentary Denies abscess or rash Neurologic Neurologic: Denies headache(s), paresthesias or weakness Psychiatric Psychiatric: Denies depression or suicidal thoughts Endocrine Endocrinology: Denies polydipsia or polyuria [facility] Medical History Encounter for chemotherapy management Polio Compression fracture of body of thoracic vertebra Hypercalcemia of malignancy Encounter for education Loss of hearing Wears glasses Post-menopausal Anxiety Arthritis Anemia Restless legs Vertigo Gastric reflux Non-smoker Leg cramps History of pain when walking Cardiology follow-up encounter Hypothyroidism Positive PPD HTN (hypertension) History of benign ovarian tumor GERD (gastroesophageal reflux disease) IBS (irritable bowel syndrome) Right sided abdominal pain Home Medications ?Medication ?Instructions ?Recorded ?Last Taken ?Type levothyroxine 50 mcg tablet 50 mcg PO DAILY thyroid 05/21/16 08/14/25 History meloxicam 7.5 mg tablet 7.5 mg PO DAILY pain 03/20/23 08/13/25 History aspirin 81 mg tablet,delayed 81 mg PO QDAY blood thinner #30 12/22/24 08/13/25 Rx release (Adult Aspirin Regimen) tabs dexamethasone 4 mg tablet 20 mg (5 x 4 mg) PO .COMPLEX #40 12/22/24 Unknown Rx tabs omeprazole 40 mg capsule,delayed 40 mg PO DAILY gerd 01/05/25 08/13/25 History release metoprolol succinate 25 mg 25 mg PO DAILY HTN 01/06/25 08/13/25 History tablet,extended release 24 hr citalopram 10 mg tablet 10 mg PO QDAY 01/25/25 08/14/25 History acyclovir 400 mg tablet 400 mg PO BID virus #180 tabs 02/23/25 08/14/25 Rx ondansetron 4 mg disintegrating 8 mg (2 x 4 mg) PO Q8H PRN nausea 04/12/25 Unknown Rx tablet and vomiting #30 tabs gabapentin 300 mg capsule 300 mg PO TID pain 04/26/25 08/14/25 History azithromycin 250 mg tablet 250 mg PO DAILY #4 TABLETS 08/14/25 Unknown Rx docusate sodium 100 mg capsule 100 mg PO DAILY PRN constipation 08/14/25 08/10/25 History (Colace) hydrocodone-acetaminophen 5-325mg 1 tab PO Q6H PRN pain 08/14/25 08/14/25 History 5mg-325mg lenalidomide 20 mg capsule 20 mg PO .COMPLEX 08/14/25 08/07/25 History loperamide 2 mg capsule (Imodium 2 mg PO Q6H PRN loose stool 08/14/25 08/14/25 History A-D) Allergy/AdvReac Type Severity Reaction Status Date / Time Gadolinium-MRI Contrast Allergy Intermediate Hives Verified 08/14/25 09:43 Medium celecoxib (From Celebrex) Allergy Rash Verified 08/14/25 09:43 Iodinated Contrast Media Allergy Itching Verified 08/14/25 09:43 (CONTRASTS) latex Allergy Rash Verified 08/14/25 09:43 shellfish derived Allergy Itching Verified 08/14/25 09:43 naproxen AdvReac Nausea/Vom/ Verified 08/14/25 09:43 Diarrhea nickel (freddie) AdvReac Rash Verified 08/14/25 09:43 Family History Mother Brain cancer Lung cancer Father CVA (cerebral vascular accident) Brother Prostate cancer Surgical History History of esophagogastroduodenoscopy (EGD) Hx of colonoscopy S/P total abdominal hysterectomy H/O oophorectomy H/O foot surgery Hx of cholecystectomy History of appendectomy Social History household members: spouse number of children: 3 current occupational status: retired Smoking Status: Never smoker alcohol intake: never substance use type: does not use additional social history: -Keven- Retired EXAM Physical Exam Const Vital Signs: 08/14/25 09:40 08/14/25 10:37 Temperature 98.1 F 98.1 F Temperature Source Oral Oral Pulse Rate 73 81 Respiratory Rate 18 16 Blood Pressure 155/67 H 154/87 H Blood Pressure Mean 96 109 Pulse Ox 99 99 Oxygen Delivery Method Room Air Room Air Positive well nourished and well developed General Appearance ED: well developed and NAD HEENT Reports moist mucous membranes HEENT Narrative: TMs clear bilaterally normocephalic and atraumatic Throat: Negative for posterior oropharynx abnormal Eyes PERRL and EOMs intact bilaterally Neck no lymphadenopathy, supple and no meningeal signs Resp normal respiratory effort and clear to auscultation bilaterally Cardio no murmurs Rate: regular rate; Negative for tachycardic Rhythm: regular rhythm Neuro oriented x3, CN's II-XII intact bilaterally and no sensory deficits noted Sensorium / Orientation: alert Motor Exam: strength 5/5 throughout Psych Mood & Affect: anxious Skin Lesions: no lesions Rashes: no rashes MDM MDM MDM Narrative Medical decision making narrative: The patient has clear lungs, normal pulse oximetry, normal vital signs, and a benign exam. She is concerned about pneumonia and is immunocompromised due to chemotherapy. A 2-B chest x-ray was obtained, which appears normal based on my interpretation, confirming that she does not have pneumonia. However, given the low-grade fever of 100.0?F that she experienced at home in the last day, and considering her chemotherapy status, I thought it appropriate to check labs. She has neutropenia with an ANC of 400 and leukopenia with a total white blood count of 1.9. Her platelets are slightly low at 112. The rest of her studies are normal. Given these findings, I believe it is reasonable to obtain a blood culture, which was done, and to cover for atypicals. Nevertheless, she appears stable and well, and I think she can be safely discharged home. I discussed this plan with Fredi Sis Aguilarpeñasheila, who is covering for Dr. Javier, and she is in agreement. They will evaluate the patient for her next chemotherapy in two days at her scheduled appointment. Portions of this note were generated using voice recognition software ([employer]). I have reviewed the contents and every effort has been made to ensure accuracy; however, inadvertent errors in grammar, spelling, punctuation, or word choice may occur, that were not noted before signing the document and should not alter the intended clinical meaning. Lab Data Attestation: I reviewed the patient's lab results. Labs: Laboratory Results - last 24 hr 08/14/25 10:10 WBC 1.9 L RBC 3.92 L Hgb 12.7 Hct 38.7 MCV 98.7 MCH 32.4 H MCHC 32.8 RDW Std Deviation 45.1 H RDW Coeff of Antolin 12.5 Plt Count 112 L MPV 10.7 Immature Gran % (Auto) 0.000 Neut % (Auto) 22.4 L Lymph % (Auto) 55.4 H [place] % (Auto) 15.5 H Eos % (Auto) 6.2 H Baso % (Auto) 0.5 Absolute Neuts (auto) 0.4 L Absolute Lymphs (auto) 1.07 Nucleated RBC % 0 Differential Comment Sodium 141 Potassium 3.6 Chloride 106 Carbon Dioxide 26.6 Anion Gap 9 BUN 11 Creatinine 0.67 L Estim Creat Clear Calc 51.62 Est GFR (MDRD) Non-Af 90 BUN/Creatinine Ratio 16.9 Glucose 102 H Calcium 8.6 Radiography Diagnostic Testing: Clinical Impression(s) from Imaging Studies Chest X-Ray 08/14/25 09:57 IMPRESSION: NO ACUTE FINDINGS. Reading Location: [id number] Management Discussion w/another healthcare provider: Tub Washer (oncology) Discharge Plan Triage Chief Complaint: Cold Sx ED Provider: Jaxson Pierre Dx/Rx/DC Orders Clinical Impression: Acute bronchitis, Neutropenia, Thrombocytopenia, Leukopenia, Multiple myeloma Instructions: Acute Bronchitis, Neutropenia Prescriptions: New azithromycin 250 mg tablet 250 mg PO DAILY Qty: 4 0RF No Action meloxicam 7.5 mg tablet 7.5 mg PO DAILY aspirin [Adult Aspirin Regimen] 81 mg tablet,delayed release (DR/EC) 81 mg PO QDAY Qty: 30 3RF dexamethasone 4 mg tablet 20 mg PO .COMPLEX Qty: 40 6RF Rx Instructions: 20 mg orally daily on chemotherapy days and the day after citalopram 10 mg tablet 10 mg PO QDAY gabapentin 300 mg capsule 300 mg PO TID ondansetron 4 mg tablet,disintegrating 8 mg PO Q8H PRN (Reason: nausea and vomiting) Qty: 30 2RF levothyroxine 50 MCG tablet 50 mcg PO DAILY hydrocodone-acetaminophen 5-325 mg tablet 1 tab PO Q6H PRN (Reason: pain) lenalidomide 20 mg capsule 20 mg PO .COMPLEX Rx Instructions: 20 mg orally DAILY X3 WEEKS OFF 1 WEEK; loperamide [Imodium A-D] 2 mg capsule 2 mg PO Q6H PRN (Reason: loose stool) docusate sodium [Colace] 100 mg capsule 100 mg PO DAILY PRN (Reason: constipation) omeprazole 40 mg capsule,delayed release(DR/EC) 40 mg PO DAILY metoprolol succinate 25 mg tablet extended release 24 hr 25 mg PO DAILY Patient Comments: takes 1x daily acyclovir 400 mg tablet 400 mg PO BID Qty: 180 1RF Primary Care Provider: Paxton Frye Referrals: Ruth Acuna MD [Med Staff - Active Staff, Oncology] - Keep Lauren appointment Activity Restrictions/Additional Instructions: - Start the prescribed antibiotic to cover potential for atypical (walking) pneumonia/infection --you received the first dose today so start the prescription tomorrow 08/15. - Take precautions to avoid spreading infection (hand washing, avoid close contact) since you may be contagious. - Chest X-ray performed today was normal?no signs of pneumonia. - Blood tests show a low white blood cell count (neutropenia) and a blood culture was collected. - Follow up with your oncologist in 2 days for evaluation before your next chemotherapy infusion. Print Language: Thai Disposition Disposition: Home, Self Care
[2025-08-14 10:31] LABS: Hematocrit 38.7 % (37-47); Hemoglobin 12.7 g/dL (12.0-15.0); Immature Granulocytes Count 0.000 X10^3/uL (0.0-0.0); Mean Corp Hgb Conc 32.8 g/dL (32-36); Mean Corpuscular Volume 98.7 fL (81-99); Mean Platelet Vol. 10.7 fl (6.2-12.0); NRBC Flagged by Analyzer 0 % (0-5); POSITIVE DIFFERENTIAL YES; Platelet Count 112 K/mm3 (150-450); RBC Distribution Width CV 12.5 % (11.6-14.6); RBC Distribution Width SD 45.1 fl (35.1-43.9); Red Blood Count 3.92 M/mm3 (4.2-5.4); White Blood Count 1.9 K/mm3 (4.4-11.0)
[2025-08-14 10:32] LABS: Differential Indicated SCAN CRITERIA MET
[2025-08-14 10:37] VITALS: BP 154/87; PULSE 81; RESP 16; TEMP 36.7; O2SAT 99
[2025-08-14 10:38] LABS: Anion Gap 9 (5-15); BUN 11 mg/dL (4-19); BUN/Creat Ratio 16.9 RATIO (10-20); Calcium,Total 8.6 mg/dL (7.6-11.0); Carbon Dioxide 26.6 mmol/L (21.0-32.0); Chloride 106 mmol/L (98-108); Estimated Creatinine Clearance 51.62 ml/min (50-250); Glucose 102 mg/dL (70-99); Potassium 3.6 mmol/L (3.3-5.1)
--- OUTSIDE RECORDS SUMMARY | 2025-08-14 10:53 | XMS RPT_ITS ---
[facility] [address] [place] [address] OFFICE VISIT Date of Service: 06/21/25 1426 MR#: [id number] Acct: [id number] Name: NADER RODRIGUEZ Rep #: [id number] : 1950 From: Ruth sullivan MD Age/Sex: 74/F Location: [facility] Status: Signed HPI Subjective Date of Service 06/21/25 Chief Complaint Multiple myeloma History of Present Illness 74-year-old female who was evaluated by Dr. 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 Further work-up confirmed a low level serum IgG lambda MGUS which on serial follow-up was found to be persistent for over 3 months. October 28, 2023 bone survey: IMPRESSION: No osteolytic or osteoblastic disease Fall 2023 she was moving heavy cement pavers when she developed an acute back pain. October 12, 2024 MRI thoracic spine: Fracture at T11 with moderate loss of height and posterior displacement of the posterior cortex resulting in moderate spinal stenosis and deformity of the anterior cord margin. No abnormal cord signal seen. Suspected pathologic fracture, mild upper endplate compression fraction with edema at L2, degenerative changes. December 02, 2024 bone marrow aspirate and biopsy: Extensive involvement by plasma cell neoplasm compromising 70 (aspirate)- 80% (core) of the marrow cellularity and hypercellular marrow, 2% circulating plasmacells. Flow cytometry confirmed a clonal plasma cell population. Cytogenetics could not be done due to insufficient sample. FISH showed positive for loss of 1 or both CDKN2C signals indicating monosomy and knowledge so me of 1 P32.3, gain of 1 q., loss of 13 q. 14.2, 13 q. 34 and TP 53. December 13, 2024 repeat bone survey: IMPRESSION: There are some lucent lesions projecting over the skull, the largest posteriorlyat 15 mm. Suggestion of some tiny lucent lesions involving the ribs, greatest involving the lateral right 7th rib. Possible 7 mm lucent lesion distal left humerus. These may represent evidence of multiple myeloma. Suggest correlation with biochemical findings. Severe height loss and kyphoplasty changes of T11 and T12. Ohjf-os-pewegkzd age-indeterminate height loss/compression deformities of L1, L2, and L4. January 18, 2025 thoracic spine MRI: IMPRESSION: 1. Interval postoperative changes T12 kyphoplasty with slight progression of previously noted severe compression deformity with moderate retropulsion and resultant moderate canal stenosis. 2. Acute-subacute compression deformities at T9 and T10 with mild loss of disc height at T9. 3. A few areas of suspicious marrow replacement as described above, for example at T4 concerning for myelomatous involvement. 4. Degenerative changes, most prominent at T12-L1 secondary to retropulsion fromthe compression deformity. 5. No suspicious cord signal abnormality. January 18, 2025 lumbar spine MRI: IMPRESSION: 1. Mild subacute compression deformity L4 and likely remote L1 and L2 compression deformities. 2. Scattered foci of suspicious marrow replacement, concerning for myelomatous involvement. 3. Multilevel degenerative changes, most prominent at L3-L4 and L4-L5, with up to moderate canal stenosis and neural foraminal narrowing. Treatment summary and response: T11 and 12 kyphoplasty: December 2024 DLVd (daratumumab, lenalidomide, Velcade and low-dose dexamethasone) January 04, 2025-ongoing: Partial remission. Zoledronic acid for malignant hypercalcemia January 04, 2025 [facility] Medical History Encounter for chemotherapy management Polio Compression fracture of body of thoracic vertebra Hypercalcemia of malignancy Encounter for education Loss of hearing Wears glasses Post-menopausal Anxiety Arthritis Anemia Restless legs Vertigo Gastric reflux Non-smoker Leg cramps History of pain when walking Cardiology follow-up encounter Hypothyroidism Positive PPD HTN (hypertension) History of benign ovarian tumor GERD (gastroesophageal reflux disease) IBS (irritable bowel syndrome) Right sided abdominal pain Surgical History History of esophagogastroduodenoscopy (EGD) Hx of colonoscopy S/P total abdominal hysterectomy H/O oophorectomy H/O foot surgery Hx of cholecystectomy History of appendectomy Family History Mother Brain cancer Lung cancer Father CVA (cerebral vascular accident) Brother Prostate cancer Social History (Reviewed 10/14/25 @ 14:31 by Sade Meng household members: spouse number of children: 3 current occupational status: retired Smoking Status: Never smoker alcohol intake: never substance use type: does not use additional social history: -Keven- Retired ROS Constitutional Constitutional: Reports systems reviewed and no addt'l complaints, except as documented and fatigue; Denies anorexia, fever(s), night sweats or weight loss Eyes Eyes: Reports systems reviewed and no addt'l complaints, except as documented ENT HEENT: Reports systems reviewed and no addt'l complaints, except as documented and dry mouth; Denies mouth lesions Cardiovascular Cardiovascular: Reports systems reviewed and no addt'l complaints, except as documented; Denies chest pain with activity or edema Respiratory/Chest Respiratory/Chest: Reports systems reviewed and no addt'l complaints, except as documented; Denies cough or dyspnea on exertion Gastrointestinal Gastrointestinal: Reports systems reviewed and no addt'l complaints, except as documented, as per HPI and other Details: Occasional constipation and diarrhea, manageable ; Denies change in bowel habits, dysphagia, hematochezia, melena or nausea Genitourinary Genitourinary: Reports systems reviewed and no addt'l complaints, except as documented and urinary frequency; Denies dysuria, hematuria or urinary incontinence Musculoskeletal Musculoskeletal: Reports systems reviewed and no addt'l complaints, except as documented, as per HPI, back pain and other Details: Back pain some good days and some bad days Integumentary Integumentary: Reports systems reviewed and no addt'l complaints, except as documented; Denies new lesions Neurologic Neurologic: Reports systems reviewed and no addt'l complaints, except as documented and other Details: Is now using the walker outdoors and walks unaidedinside her house ; Denies focal weakness or paresthesias Psychiatric Psychiatric: Reports systems reviewed and no addt'l complaints, except as documented Endocrine Endocrinology: Reports systems reviewed and no addt'l complaints, except as documented Hematologic/Lymphatic Hematologic/Lymphatic: Reports systems reviewed and no addt'l complaints, exceptas documented; Denies lymphadenopathy Allergic/Immunologic Allergic/Immunologic: Reports systems reviewed and no addt'l complaints, except as documented Intake Vital Signs 06/07/25 13:36 06/21/25 14:27 06/21/25 14:31 Height 5 ft 4 in 5 ft 4 in 5 ft 4 in Weight: 55.565 kg 55.452 kg BMI 21.0 20.9 BP 128/74 H 132/73 H Blood Pressure Location Lt brachial Lt brachial Position Sitting Sitting Respiration 18 18 Pulse 71 68 Pulse Source Monitor Monitor Temp 98.2 F 95.9 F L Temperature Source Temporal Artery Temporal Artery Pulse Oximetry (%) 97 97 Oxygen Delivery Method room air room air Intake Is patient in pain?: Yes (back ) Pain scale (1-10): 8 Allergies Gadolinium-MRI Contrast Medium Allergy (Intermediate, Verified 06/07/25 13:32) Hives celecoxib (From Celebrex) Allergy (Verified 06/07/25 13:32) Rash Iodinated Contrast Media (CONTRASTS) Allergy (Verified 06/07/25 13:32) Itching latex Allergy (Verified 06/07/25 13:32) Rash shellfish derived Allergy (Verified 06/07/25 13:32) Itching naproxen Adverse Reaction (Verified 06/07/25 13:32) Nausea/Vom/Diarrhea nickel (freddie) Adverse Reaction (Verified 06/07/25 13:32) Rash Medications ?Medication ?Instructions ?Recorded ?Confirmed ?Type levothyroxine 50 mcg tablet 50 mcg PO DAILY thyroid 06/21/25 History meloxicam 7.5 mg tablet 7.5 mg PO DAILY pain 3 06/21/25 History aspirin 81 mg tablet,delayed 81 mg PO QDAY blood thinn er #30 12/22/24 06/21/25 Rx release (Adult Aspirin Regimen) tabs dexamethasone 4 mg tablet 20 mg (5 x 4 mg) PO .COMPLEX #40 12/22/24 06/21/25 Rx tabs omeprazole 40 mg capsule,delayed 40 mg PO DAILY gerd 0 01/05/25 06/21/25 History release metoprolol succinate 25 mg 25 mg PO DAILY HTN 01/06/25 06/21/25 History tablet,extended release 24 hr citalopram 10 mg tablet 10 mg PO QDAY 01/25/2506/21 History lenalidomide 25 mg capsule 25 mg PO QDAY 02/22/2506/08 History acyclovir 400 mg tablet 400 mg PO BID virus #180 tab s 02/23/25 06/21/25 Rx ondansetron 4 mg disintegrating 8 mg (2 x 4 mg) PO Q8H PRN nausea 04/12/25 06/21/25 Rx tablet and vomiting #30 tabs gabapentin 300 mg capsule 300 mg PO TID pain 04/26/25 06/21/25 History sennosides 8.6 mg tablet (Senna 8.6 mg PO QDAY PRN 11/0206/21/25 History Lax) hydrocodone 5 mg-acetaminophen 300 1 tab PO Q8H 06/21/25 History mg tablet Have you fallen in the past year?: No Central Venous Access Central Venous Access: No Laboratory Tests 03/20/23 07/16/23 10/15/23 10:07 10:37 10:55 Hgb Creatinine Calcium Lactate Dehydrogenase Pogj-5-Sclelfhwldfzc IgG NANI M-Edwin 0.8 H 0.8 H Comment: [place] LC, Quant 12.9 7.7 12.2 Free Lambda LC, Quant 92.5 H 70.6 H 126.1 H [place]/Lambda Ratio 0.14 L 0.11 L 0.10 L Hep Bs Antigen Hep Bs Antibody Hep B Core Total Ab Hepatitis C Antibody Hep C Ab Comment 04/21/24 11/22/24 11/29/24 09:55 13:57 10:29 Hgb 12.8 8.3 L Creatinine Calcium Lactate Dehydrogenase 256 H Klsx-3-Awlnplybiwxvq IgG 1555 3152 H NANI M-Edwin 1.2 H Comment: [place] LC, Quant 10.5 5.6 Free Lambda LC, Quant 227.4 H 655.4 H [place]/Lambda Ratio 0.05 L 0.01 L Hep Bs Antigen Hep Bs Antibody Hep B Core Total Ab Hepatitis C Antibody Hep C Ab Comment 12/22/24 01/04/25 01/25/25 10:47 09:14 10:07 Hgb Creatinine 0.97 Calcium 12.7 H* Lactate Dehydrogenase Fcqg-8-Nmujcnivtqwag 3.5 H IgG NANI M-Edwin Comment: Comment: [place] LC, Quant 4.9 4.9 Free Lambda LC, Quant 995.3 H 311.0 H [place]/Lambda Ratio 0.00 L 0.02 L Hep Bs Antigen Negative Hep Bs Antibody Non Reactive Hep B Core Total Ab Negative Hepatitis C Antibody Non Reactive Hep C Ab Comment Comment 02/22/25 03/29/25 04/12/25 10:07 09:58 10:25 Hgb Creatinine Calcium Lactate Dehydrogenase Zbfe-3-Tmwgirzqvtazk IgG NANI M-Edwin Comment: 0.4 H 0.4 H [place] LC, Quant 10.9 6.7 Free Lambda LC, Quant 120.5 H 52.9 H 34.8 H [place]/Lambda Ratio 0.05 L 0.21 L 0.19 L Hep Bs Antigen Hep Bs Antibody Hep B Core Total Ab Hepatitis C Antibody Hep C Ab Comment 05/10/25 06/07/25 13:45 12:47 Hgb Creatinine Calcium Lactate Dehydrogenase Cdce-4-Avuaazdfofmpy IgG NANI M-Edwin 0.3 H [place] LC, Quant 10.5 Free Lambda LC, Quant 26.1 23.6 [place]/Lambda Ratio 0.40 0.54 Hep Bs Antigen Hep Bs Antibody Hep B Core Total Ab Hepatitis C Antibody Hep C Ab Comment Exam Physical Exam Narrative ECOG 1-2 Const alert, oriented x3 and no apparent distress General Appearance: cooperative HEENT normocephalic Face and Sinus: normal facial exam Mouth: dry mucous membranes and No thrush Eyes General Eye: normal appearance of both eyes Neck no lymphadenopathy and no JVD Lymph Lymphatic: no lymphadenopathy noted Resp clear to auscultation bilaterally Cardio regular rate and regular rhythm Jugular Venous Distention: Negative for JVD GI soft to palpation, non-tender and non-distended; Negative for hepatosplenomegaly Back/Spine no thoracic nor lumbar tenderness Extremity General Extremity: edema bilateral lower extremity Details: mild; Negative for clubbing or cyanosis Skin no rashes or lesions noted Neuro oriented x3, CN's II-XII intact bilaterally, moves all extremities and no focal motor deficits Coordination / Balance: npwtod-ni-xfkp test normal Speech: speech normal Gait (Neuro): assistive device used walker Psych mental status grossly normal Coding Level of Care Code Off vis,est,level 4 Exam Problem Focused Diagnoses Multiple myeloma not having achieved remission C90.00 Multiple myeloma remission status: not in remission 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 There was no other evidence to suggest endorgan damage by multiple myeloma including a negative skeletal surveyin October 2023. Finding were most consistent with MGUS and she was placed on surveillance. In the fall 2023 she suffered an acute back pain episode following some heavy lifting (cement pavers) that gradually became worse and in October 2024 she hadan MRI of the spine that showed a burst fracture at T11 questioned pathologic. Bone marrow aspirate and biopsy November 2024 confirmed that her MGUS has evolved into high risk multiple myeloma (gain of 1 q.) and repeat skeletal survey December 2024 showed multiple lytic bone lesions. She underwent palliative kyphoplasty for T11 and 12 with some improvement in pain. Started January 04, 2025 systemic therapy for multiple myeloma with 4 drug combination of daratumumab, bortezomib, lenalidomide and dexamethasone (DVRd). She is showed a rapid response response to therapy with over 50% reduction in M protein consistent with partial remission of the disease. Hypercalcemia of malignancy resolved. Was seen at [facility] by Dr. Hernandez in March 2025 and due to age, and performance status she was not felt to be a candidate for myeloablative melphalan with autologous stem transplantation but can be reevaluated in the future for CAR-T therapy. Chronic comorbid conditions: Chronic abdominal pain status post multiple abdominal surgeries, GERD, degenerative joint disease. Plan: Based on NCCN guidelines and up-to-date review of first-line management ofmultiple myeloma and the patient who may be a candidate for high-dose chemotherapy autologous bone marrow transplant: 1. Continue systemic therapy for multiple myeloma induction phase with 4 drug combination of daratumumab, bortezomib, lenalidomide (initially was renal reduced dose then as her kidney function improved she was advanced to standard dosing). Will continue this induction phase until she is in her deepest response/ 12 [address] maintenance [address]d : Darzalex/ 4W and lenalidomide (20 mg / on/off cycles) with dexamethasone (D1) as part of daratumumab premedication. 2. Maintenance bone supportive therapy with zoledronic acid every 12 weeks started March 2025. 3. Infection prophylaxis, advised receiving shingles vaccine and continue acyclovir prophylaxis. 4. Palliative and pain management referred and is under their care . 5. VTE prophylaxis with low-dose aspirin. 6. Encouraged to reschedule physical therapy which was on hold due to difficulties with pain control Patient was seen with her , impression and plan discussed Ruth Acuna MD License Inspector, [facility] Divisions of Medical Oncology & Hematology Department of Internal Medicine [place] [id number] This note was generated using a voice recognition system software. Although itwas reviewed by the author prior to finalization, it may still contain incorrectwords, spelling, and punctuation that were not noted when reviewing prior to saving. If a clinically significant typo or inaccurately typed phrase is noted, please notify the author. Clinical Quality Measures Falls Risk Screening/Assistive Devices Have you fallen in the past year?: No 06/21/25 0215 <Electronically signed by Ruth lion MD> Date _ Ruth Acuna MD Cosigner Signature: Date (if applicable) CC: ~ [employer] Work Phone: Reason for referral (narrative)* Consultation (Routine) - Pending Review Specialty Diagnoses / Procedures Referred By Hermilo palencia Referred To Contact Gastroenterology Diagnoses Right sided abdominal pain Procedures ND OFFICE/OUTPATIENT NEW HIGH MDM 60-74 MINUTES Vannessa Cruz, STAMP MACHINE SERVIC[employer] [address] [place] [address] Brant Tang [address], [address] [place] [address] Referral ID Status Reason Start Date Expiration Date Visits Requested Visits Authorized [id number] Pending Review Specialty Services Required 11/18/2022 11/18/2023 1 1 [facility] Consultation (Routine) - Pending Review Specialty Diagnoses / Procedures Referred By Contac t Referred To Contact Pain Medicine Diagnoses Degenerative lumbar spinal stenosis Subacute left lumbar radiculopathy Procedures ND OFFICE/OUTPATIENT NEW HIGH MDM 60-74 MINUTES Femi Stoner DO [address] [place] [address] [facility] [address] [place] [address] Referral ID Status Reason Start Date Expiration Date Visits Requested Visits Authorized [id number] Pending Review Specialty Services Required 07/09/2023 07/08/2024 1 1 [facility]ative)No reason for referral information [facility]WRiverview [facility] Work Phone: Reason for visit Narrative* Imaging (Routine) - Closed Specialty Diagnoses / Procedures Referred By Contac t Referred To Contact Radiology Diagnoses Thoracic radiculopathy Procedures MR thoracic spine wo contrast Esteban Kan MD [address] [place] [address] Phone: tel: fax: [facility] Imaging [address] [place] [address] Phone: tel: fax: Referral ID Status Reason Start Date Expiration Date Visits Re quested Visits Authorized [id number] Closed 10/01/2024 10/01/2025 1 1 [facility] Assessments Diagnosis Right hip pain Pain in joint, pelvic region and thigh Trochanteric bursitis of right hip Enthesopathy of hip region Diagnosis Osteopenia, unspecified location Diagnosis Unspecified menopausal and perimenopausal disorder Osteopenia, unspecified location Advance Directives No Advanced Directives Records FoundDocuments on File Type Date Recorded 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 Advance Directives and Living Will Power of Global Security Architect Documents on File Type Date Recorded 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 ACP-Advance Directive ACP-Power of Global Security Architect Documents on File Type Date Recorded 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 ACP-Advance Directive ACP-Power of Global Security Architect Advance Directive Response Recorded Date/ Time Name of Medical Power of Global Security Architect SPOUSE February 21, 2023 9:30am Advance Directives Yes October 2:28pm Living Will Yes February 21, 2023 9:30am Power of Global Security Architect Yes February 21 9:30am Advance Directive Response Recorded Date/ Time Advance Directives Yes October 1:28pm Living Will Yes February 21, 2023 8:30am Power of Global Security Architect Yes February 21 8:30am Date Activated Date Inactivated Comments 02/27/2024 9:18 AM 02/27/2024 1:00 PM Date Activated Date Inactivated Comments 02/27/2024 9:18 AM 02/27/2024 1:00 PM Date Activated Date Inactivated Comments 10/13/2024 8:34 PM 10/16/2024 3:50 PM Date Activated Date Inactivated Comments 02/27/2024 9:18 AM 02/27/2024 1:00 PM Advance Directive Response Recorded Date/ Time Living Will Yes February 21, 2023 9:30am Do you have a Healthcare Power of Global Security Architect? Yes February 21, 2023 9:30am Living Will Yes October 10 2:43am Do you have a Healthcare Power of Global Security Architect? Yes October 10, 2024 2:43am Name of Medical Power of Global Security Architect Anup Rodriguez October 10, 2024 2:43am Advance Directives Yes October 2:28pm Advance Directive Response Recorded Date/ Time Living Will Yes February 21, 2023 9:30am Do you have a Healthcare Power of Global Security Architect? Yes February 21, 2023 9:30am Advance Directives on File No January 112024 12:15pm Living Will Yes January 11, 2025 12 :15pm Do you have a Healthcare Power of Global Security Architect? Yes January 11, 2025 12:15pm Advance Directives Yes January 11, 2025 12:15pm Living Will Yes October 10 2:43am Do you have a Healthcare Power of Global Security Architect? Yes October 10, 2024 2:43am Name of Medical Power of Global Security Architect Anup Jaimesomas October 10, 2024 2:43am Do you have a Healthcare Power of Global Security Architect? Yes January 04, 2025 11:52pm Advance Directive Response Recorded Date/ Time Living Will Yes February 21, 2023 9:30am Do you have a Healthcare Power of Global Security Architect? Yes February 21, 2023 9:30am Advance Directives on File No January 062024 3:07pm Living Will Yes January 18, 2025 3 :07pm Do you have a Healthcare Power of Global Security Architect? Yes January 18, 2025 3:07pm Advance Directives Yes January 18 3:07pm Living Will Yes October 10 2:43am Do you have a Healthcare Power of Global Security Architect? Yes October 10, 2024 2:43am Name of Medical Power of Global Security Architect Anup Jaimesomas October 10, 2024 2:43am Do you have a Healthcare Power of Global Security Architect? Yes January 04, 2025 11:52pm Advance Directive Response Recorded Date/ Time Living Will Yes February 21, 2023 9:30am Do you have a Healthcare Power of Global Security Architect? Yes February 21, 2023 9:30am Advance Directives on File No January 072024 1:18pm Living Will Yes January 25, 2025 1 :18pm Do you have a Healthcare Power of Global Security Architect? Yes January 25, 2025 1:18pm Advance Directives Yes January 25 1:18pm Living Will Yes October 10 2:43am Do you have a Healthcare Power of Global Security Architect? Yes October 10, 2024 2:43am Name of Medical Power of Global Security Architect Anup Jaimesomas October 10, 2024 2:43am Do you have a Healthcare Power of Global Security Architect? Yes January 04, 2025 11:52pm Advance Directive Response Recorded Date/ Time Living Will Yes February 21, 2023 9:30am Do you have a Healthcare Power of Global Security Architect? Yes February 21, 2023 9:30am Advance Directives on File No February 08, 2025 12:26pm Living Will Yes February 08, 2025 1 2:26pm Do you have a Healthcare Power of Global Security Architect? Yes February 08, 2025 12:26pm Advance Directives Yes February 08 12:26pm Do you have a Healthcare Power of Global Security Architect? Yes January 04, 2025 11:52pm Advance Directive Response Recorded Date/ Time Living Will Yes February 21, 2023 9:30am Do you have a Healthcare Power of Global Security Architect? Yes February 21, 2023 9:30am Advance Directives on File No January 072024 12:31pm Living Will Yes February 01, 2025 1 2:31pm Do you have a Healthcare Power of Global Security Architect? Yes February 01, 2025 12:31pm Advance Directives Yes February 01 12:31pm Do you have a Healthcare Power of Global Security Architect? Yes January 04, 2025 11:52pm Advance Directive Response Recorded Date/ Time Living Will Yes February 21, 2023 9:30am Do you have a Healthcare Power of Global Security Architect? Yes February 21, 2023 9:30am Advance Directives on File No February 15, 2025 11:50am Living Will Yes February 15, 2025 11:50am Do you have a Healthcare Power of Global Security Architect? Yes February 15, 2025 11:50am Advance Directives Yes February 15 11:50am Do you have a Healthcare Power of Global Security Architect? Yes January 04, 2025 11:52pm Advance Directive Response Recorded Date/ Time Living Will Yes February 21, 2023 9:30am Do you have a Healthcare Power of Global Security Architect? Yes February 21, 2023 9:30am Advance Directives on File No February 22, 2025 1:15pm Living Will Yes February 22, 2025 1:15pm Do you have a Healthcare Power of Global Security Architect? Yes February 22, 2025 1:15pm Advance Directives Yes February 22 1:15pm Do you have a Healthcare Power of Global Security Architect? Yes January 04, 2025 11:52pm Advance Directive Response Recorded Date/ Time Living Will Yes February 21, 2023 9:30am Do you have a Healthcare Power of Global Security Architect? Yes February 21, 2023 9:30am Advance Directives on File No March 01, 2025 12:36pm Living Will Yes March 01, 2025 12:36pm Do you have a Healthcare Power of Global Security Architect? Yes March 01, 2025 12:36pm Advance Directives Yes March 01 12:36pm Do you have a Healthcare Power of Global Security Architect? Yes January 04, 2025 11:52pm Advance Directive Response Recorded Date/ Time Living Will Yes February 21, 2023 9:30am Do you have a Healthcare Power of Global Security Architect? Yes February 21, 2023 9:30am Advance Directives on File No March 08, 2025 3:50pm Living Will Yes March 08, 2025 3 :50pm Do you have a Healthcare Power of Global Security Architect? Yes March 08, 2025 3:50pm Advance Directives Yes March 08 3:50pm Do you have a Healthcare Power of Global Security Architect? Yes January 04, 2025 11:52pm Advance Directive Response Recorded Date/ Time Living Will Yes February 21, 2023 9:30am Do you have a Healthcare Power of Global Security Architect? Yes February 21, 2023 9:30am Advance Directives on File No March 15, 2025 2:55pm Living Will Yes March 15, 2025 2 :55pm Do you have a Healthcare Power of Global Security Architect? Yes March 15, 2025 2:55pm Advance Directives Yes March 15 2:55pm Do you have a Healthcare Power of Global Security Architect? Yes January 04, 2025 11:52pm Advance Directive Response Recorded Date/ Time Advance Directives on File No March 29, 2025 12:10pm Living Will Yes March 29, 2025 12:10pm Do you have a Healthcare Power of Global Security Architect? Yes March 29, 2025 12:10pm Advance Directives Yes March 29 12:10pm Do you have a Healthcare Power of Global Security Architect? Yes January 04, 2025 11:52pm Advance Directive Response Recorded Date/ Time Advance Directives on File No Augus 2024 12:56pm Living Will Yes April 12, 2025 12:56pm Do you have a Healthcare Power of Global Security Architect? Yes April 12, 2025 12:56pm Advance Directives Yes April 12 12:56pm Do you have a Healthcare Power of Global Security Architect? Yes January 04, 2025 11:52pm Advance Directive Response Recorded Date/ Time Advance Directives on File No [email or web address] 3:18pm Living Will Yes May 10 3:18pm Do you have a Healthcare Power of Global Security Architect? Yes May 10, 2025 3:18pm Advance Directives Yes May 3:18pm Advance Directive Response Recorded Date/ Time Advance Directives on File No Sept mber 2024 2:29pm Living Will Yes June 07, 2025 2:29pm Do you have a Healthcare Power of Global Security Architect? Yes June 07, 2025 2:29pm Advance Directives Yes May 2:29pm Advance Directive Response Recorded Date/ Time Advance Directives on File No Octob er 2024 3:31pm Living Will Yes June 21 3:31pm Do you have a Healthcare Power of Global Security Architect? Yes June 21, 2025 3:31pm Advance Directives Yes June 21, 2025 3:31pm Reason for Referral Status Reason Specialty Diagnoses / Procedures Re ferred By Contact Referred To Contact Open Radiology Diagnoses Unspecified menopausal and perimenopausal disorder Osteopenia, unspecified location Procedures DEXA Bone Density Axial Skeleton Reid Malone, DO [address] [place] [address] Specialty Diagnoses / Procedures Referred By Contac t Referred To Contact Physical Therapy Diagnoses Lumbar radiculopathy, acute Osteoarthritis of hip, unspecified laterality, unspecified osteoarthritis type Procedures ND OFFICE/OUTPATIENT [facility] 60-74 MINUTES Femi Stoner, DO [address] [place] [address] [facility] [address] [place] [id number] Referral ID Status Reason Start Date Expiration Date Visits Requested Visits Authorized [id number] Authorized Eval and Treat 03/06/2023 09/02/2023 99 99 Specialty Diagnoses / Procedures Referred By Contac t Referred To Contact Radiology Diagnoses Lumbar radiculopathy, acute Procedures MR lumbar spine wo contrast Femi Stoner F, DO [address] [place] [address] Referral ID Status Reason Start Date Expiration Date V isits Requested Visits Authorized [id number] Pending Review 03/24/2023 09/20/2023 1 1 Specialty Diagnoses / Procedures Referred By Contac t Referred To Contact Radiology Diagnoses Lumbar radiculopathy, acute Procedures MR lumbar spine wo contrast Femi Stoner F, DO [address] [place] [address] [facility] [address] [place] [phone] Referral ID Status Reason Start Date Expiration Date Visits Re quested Visits Authorized [id number] Closed 03/24/2023 09/20/2023 1 1 Summary Purpose Family History No Family History Records Found Relationship Condition Age at Onset Recorded Date/T tate mother Malignant neoplasm of brain Unknown Malignant neoplasm of lung Unknown father Cerebrovascular accident (CVA) Unknown brother Malignant neoplasm of prostate Unknown Chief Complaint and Reason for Visit Chief Complaint Consult RIGHT MID ABD PAIN Reason for Visit Rectal bleeding GERD (gastroesophageal reflux disease) Right sided abdominal pain Chief Complaint Consult RIGHT MID ABD PAIN E-ORDER FU Reason for Visit Rectal bleeding GERD (gastroesophageal reflux disease) Right sided abdominal pain Rectal bleeding GERD (gastroesophageal reflux disease) Right sided abdominal pain Chief Complaint 5 MO FU 4 MO - LABS 1 WK PRIOR 3 MO - LABS 1 WK PRIOR MGUS Reason for Visit Celiac disease Rectal bleeding Chronic constipation GERD (gastroesophageal reflux disease) Right sided abdominal pain MGUS (monoclonal gammopathy of unknown significance) Chief Complaint Admit Date back pain October 10, 2024 1 :38am 6 MO - LABS 1 WK PRIOR November 29, 2024 9:19am 4 MO - LABS 1 WK PRIOR November 29, 2024 10:30am Monoclonal gammopathy December 02, 2024 7 :33am CONSULT - BONE METS December 06, 2024 12: 40pm Reason for Visit Admit Date MGUS (monoclonal gammopathy of unknown s ignificance) November 29, 2024 9:19am Multiple myeloma December 06, 2024 12: 40pm Chief Complaint Admit Date back pain October 10, 2024 1 :38am 6 MO - LABS 1 WK PRIOR November 29, 2024 9:19am 4 MO - LABS 1 WK PRIOR November 29, 2024 10:30am Monoclonal gammopathy December 02, 2024 7 :33am CONSULT - BONE METS December 06, 2024 12: 40pm MGUS December 13, 2024 9:25 am Chief Complaint Admit Date back pain October 10, 2024 1 :38am 6 MO - LABS 1 WK PRIOR November 29, 2024 9:19am Monoclonal gammopathy December 02, 2024 7 :33am CONSULT - BONE METS December 06, 2024 12: 40pm MGUS December 13, 2024 9:25 am DISCUSS TREATMENT OPTIONS December 20 9:35am CHEMO ED,CHECK ROUTING SLIP December 22, 2024 10:27am NEW START - LABS - SCOUT/VELCADE January 042024 9:07am HYPOXIA, ASPIRATION EVENT, N/V December 11:06pm HYPOXIA, ASPIRATION EVENT, N/V December 11:26am HYPOXIA, ASPIRATION EVENT, N/V January 06, 2025 10:24am 1 WK - LABS - SCOUT/VELCADE January 11, 2025 9:03am 1 WK - LABS - SCOUT/VELCADE January 18 10:07am [email or web address] January 18, 2025 10:15 am Reason for Visit Admit Date MGUS (monoclonal gammopathy of unknown s ignificance) November 29, 2024 9:19am Multiple myeloma December 06, 2024 12: 40pm Multiple myeloma December 20, 2024 9:3 5am Anemia December 20, 2024 9:3 5am Encounter for education December 22, 2024 10:27am Multiple myeloma December 22, 2024 10: 27am Anemia December 22, 2024 10: 27am Hypercalcemia of malignancy January 04, 2025 9:07am Multiple myeloma January 04, 2025 9:0 7am Anemia January 04, 2025 9:0 7am Aspiration pneumonia January 04, 2025 11 :06pm Acute encephalopathy January 04, 2025 11 :06pm Acute hypoxemic respiratory failure Apri l 2024 11:06pm Aspiration into airway January 04, 2025 11:06pm Malignancy associated hypercalcemia Apri l 2024 11:06pm Hypercalcemia of malignancy January 11 9:03am Multiple myeloma January 11, 2025 9:03am Anemia January 11, 2025 9:03am Hypercalcemia of malignancy January 18 10:07am Multiple myeloma January 18, 2025 10:07 am Anemia January 18, 2025 10:07 am Chief Complaint Admit Date back pain October 10, 2024 1 :38am 6 MO - LABS 1 WK PRIOR November 29, 2024 9:19am Monoclonal gammopathy December 02, 2024 7 :33am CONSULT - BONE METS December 06, 2024 12: 40pm MGUS December 13, 2024 9:25 am DISCUSS TREATMENT OPTIONS December 20 9:35am CHEMO ED,CHECK ROUTING SLIP December 22, 2024 10:27am NEW START - LABS - SCOUT/VELCADE January 042024 9:07am HYPOXIA, ASPIRATION EVENT, N/V December 11:06pm HYPOXIA, ASPIRATION EVENT, N/V December 11:26am HYPOXIA, ASPIRATION EVENT, N/V January 06, 2025 10:24am 1 WK - LABS - SCOUT/VELCADE January 11, 2025 9:03am 1 WK - LABS - SCOUT/VELCADE January 18 10:07am [email or web address] January 18, 2025 10:15 am C90.00 Multiple myeloma not having achie vito remiss January 18, 2025 12:39pm Chief Complaint Admit Date back pain October 10, 2024 1 :38am 6 MO - LABS 1 WK PRIOR November 29, 2024 9:19am Monoclonal gammopathy December 02, 2024 7 :33am CONSULT - BONE METS December 06, 2024 12: 40pm MGUS December 13, 2024 9:25 am DISCUSS TREATMENT OPTIONS December 20 9:35am CHEMO ED,CHECK ROUTING SLIP December 22, 2024 10:27am NEW START - LABS - SCOUT/VELCADE January 042024 9:07am HYPOXIA, ASPIRATION EVENT, N/V December 11:06pm HYPOXIA, ASPIRATION EVENT, N/V December 11:26am HYPOXIA, ASPIRATION EVENT, N/V January 06, 2025 10:24am 1 WK - LABS - SCOUT/VELCADE January 11, 2025 9:03am 1 WK - LABS - SCOUT/VELCADE January 18 10:07am C90.00 Multiple myeloma not having achie vito remiss January 18, 2025 12:39pm 1 WK - LABS - SCOUT/VELCADE January 25 9:59am [email or web address] January 25, 2025 10:15 am Reason for Visit Admit Date MGUS (monoclonal gammopathy of unknown s ignificance) November 29, 2024 9:19am Multiple myeloma December 06, 2024 12: 40pm Multiple myeloma December 20, 2024 9:3 5am Anemia December 20, 2024 9:3 5am Encounter for education December 22, 2024 10:27am Multiple myeloma December 22, 2024 10: 27am Anemia December 22, 2024 10: 27am Hypercalcemia of malignancy January 04, 2025 9:07am Multiple myeloma January 04, 2025 9:0 7am Anemia January 04, 2025 9:0 7am Aspiration pneumonia January 04, 2025 11 :06pm Acute encephalopathy January 04, 2025 11 :06pm Acute hypoxemic respiratory failure Apri l 2024 11:06pm Aspiration into airway January 04, 2025 11:06pm Malignancy associated hypercalcemia Apri l 2024 11:06pm Hypercalcemia of malignancy January 11 9:03am Multiple myeloma January 11, 2025 9:03am Anemia January 11, 2025 9:03am Hypercalcemia of malignancy January 18 10:07am Multiple myeloma January 18, 2025 10:07 am Anemia January 18, 2025 10:07 am Hypercalcemia of malignancy January 25 9:59am Multiple myeloma January 25, 2025 9:59a m Anemia January 25, 2025 9:59a m Chief Complaint Admit Date back pain October 10, 2024 1 :38am 6 MO - LABS 1 WK PRIOR November 29, 2024 9:19am Monoclonal gammopathy December 02, 2024 7 :33am CONSULT - BONE METS December 06, 2024 12: 40pm MGUS December 13, 2024 9:25 am DISCUSS TREATMENT OPTIONS December 20 9:35am CHEMO ED,CHECK ROUTING SLIP December 22, 2024 10:27am NEW START - LABS - SCOUT/VELCADE January 042024 9:07am HYPOXIA, ASPIRATION EVENT, N/V December 11:06pm HYPOXIA, ASPIRATION EVENT, N/V December 11:26am HYPOXIA, ASPIRATION EVENT, N/V January 06, 2025 10:24am 1 WK - LABS - SCOUT/VELCADE January 11, 2025 9:03am 1 WK - LABS - SCUOT/VELCADE January 18 10:07am C90.00 Multiple myeloma not having achie vito remiss January 18, 2025 12:39pm 1 WK - LABS - SCOUT/VELCADE January 25 9:59am 1 WK - LABS - SCOUT/VELCADE February 01 10:22am [email or web address] February 01, 2025 10:45 am Reason for Visit Admit Date MGUS (monoclonal gammopathy of unknown s ignificance) November 29, 2024 9:19am Multiple myeloma December 06, 2024 12: 40pm Multiple myeloma December 20, 2024 9:3 5am Anemia December 20, 2024 9:3 5am Encounter for education December 22, 2024 10:27am Multiple myeloma December 22, 2024 10: 27am Anemia December 22, 2024 10: 27am Multiple myeloma January 04, 2025 9:0 7am Anemia January 04, 2025 9:0 7am Hypercalcemia of malignancy January 04, 2025 9:07am Aspiration pneumonia January 04, 2025 11 :06pm Acute encephalopathy January 04, 2025 11 :06pm Acute hypoxemic respiratory failure Apri l 2024 11:06pm Aspiration into airway January 04, 2025 11:06pm Malignancy associated hypercalcemia Apri l 2024 11:06pm Multiple myeloma January 11, 2025 9:03am Anemia January 11, 2025 9:03am Hypercalcemia of malignancy January 11 9:03am Multiple myeloma January 18, 2025 10:07 am Anemia January 18, 2025 10:07 am Hypercalcemia of malignancy January 18 10:07am Multiple myeloma January 25, 2025 9:59a m Anemia January 25, 2025 9:59a m Hypercalcemia of malignancy January 25 9:59am Multiple myeloma February 01, 2025 10:22 am Anemia February 01, 2025 10:22 am Hypercalcemia of malignancy February 01 10:22am Chief Complaint Admit Date 6 MO - LABS 1 WK PRIOR November 29, 2024 9:19am Monoclonal gammopathy December 02, 2024 7 :33am CONSULT - BONE METS December 06, 2024 12: 40pm MGUS December 13, 2024 9:25 am DISCUSS TREATMENT OPTIONS December 20 9:35am CHEMO ED,CHECK ROUTING SLIP December 22, 2024 10:27am NEW START - LABS - SCOUT/VELCADE January 042024 9:07am HYPOXIA, ASPIRATION EVENT, N/V December 11:06pm HYPOXIA, ASPIRATION EVENT, N/V December 11:26am HYPOXIA, ASPIRATION EVENT, N/V January 06, 2025 10:24am 1 WK - LABS - SCOUT/VELCADE January 11, 2025 9:03am 1 WK - LABS - SCOUT/VELCADE January 18 10:07am C90.00 Multiple myeloma not having achie vito remiss January 18, 2025 12:39pm 1 WK - LABS - SCOUT/VELCADE January 25 9:59am 1 WK - LABS - SCOUT/VELCADE February 01 10:22am 1 WK - LABS - SCOUT/VELCADE February 08 10:32am [email or web address] February 08, 2025 10:45 am Reason for Visit Admit Date MGUS (monoclonal gammopathy of unknown s ignificance) November 29, 2024 9:19am Multiple myeloma December 06, 2024 12: 40pm Multiple myeloma December 20, 2024 9:3 5am Anemia December 20, 2024 9:3 5am Encounter for education December 22, 2024 10:27am Multiple myeloma December 22, 2024 10: 27am Anemia December 22, 2024 10: 27am Multiple myeloma January 04, 2025 9:0 7am Anemia January 04, 2025 9:0 7am Hypercalcemia of malignancy January 04, 2025 9:07am Aspiration pneumonia January 04, 2025 11 :06pm Acute encephalopathy January 04, 2025 11 :06pm Acute hypoxemic respiratory failure Apri l 2024 11:06pm Aspiration into airway January 04, 2025 11:06pm Malignancy associated hypercalcemia Apri l 2024 11:06pm Multiple myeloma January 11, 2025 9:03am Anemia January 11, 2025 9:03am Hypercalcemia of malignancy January 11 9:03am Multiple myeloma January 18, 2025 10:07 am Anemia January 18, 2025 10:07 am Hypercalcemia of malignancy January 18 10:07am Multiple myeloma January 25, 2025 9:59a m Anemia January 25, 2025 9:59a m Hypercalcemia of malignancy January 25 9:59am Multiple myeloma February 01, 2025 10:22 am Anemia February 01, 2025 10:22 am Hypercalcemia of malignancy February 01 10:22am Multiple myeloma February 08, 2025 10:32 am Anemia February 08, 2025 10:32 am Hypercalcemia of malignancy February 08 10:32am Chief Complaint Admit Date 6 MO - LABS 1 WK PRIOR November 29, 2024 9:19am Monoclonal gammopathy December 02, 2024 7 :33am CONSULT - BONE METS December 06, 2024 12: 40pm MGUS December 13, 2024 9:25 am DISCUSS TREATMENT OPTIONS December 20 9:35am CHEMO ED,CHECK ROUTING SLIP December 22, 2024 10:27am NEW START - LABS - SCOUT/VELCADE January 042024 9:07am HYPOXIA, ASPIRATION EVENT, N/V December 11:06pm HYPOXIA, ASPIRATION EVENT, N/V December 11:26am HYPOXIA, ASPIRATION EVENT, N/V January 06, 2025 10:24am 1 WK - LABS - SCOUT/VELCADE January 11, 2025 9:03am 1 WK - LABS - SCOUT/VELCADE January 18 10:07am C90.00 Multiple myeloma not having achie vito remiss January 18, 2025 12:39pm 1 WK - LABS - SCOUT/VELCADE January 25 9:59am 1 WK - LABS - SCOUT/VELCADE February 01 10:22am 1 WK - LABS - SCOUT/VELCADE February 08 10:32am 1 WK - LABS - SCOUT/VLECADE February 15 9:59am [email or web address] February 15, 2025 10:1 5am Reason for Visit Admit Date MGUS (monoclonal gammopathy of unknown s ignificance) November 29, 2024 9:19am Multiple myeloma December 06, 2024 12: 40pm Multiple myeloma December 20, 2024 9:3 5am Anemia December 20, 2024 9:3 5am Encounter for education December 22, 2024 10:27am Multiple myeloma December 22, 2024 10: 27am Anemia December 22, 2024 10: 27am Multiple myeloma January 04, 2025 9:0 7am Anemia January 04, 2025 9:0 7am Hypercalcemia of malignancy January 04, 2025 9:07am Aspiration pneumonia January 04, 2025 11 :06pm Acute encephalopathy January 04, 2025 11 :06pm Acute hypoxemic respiratory failure Apri l 2024 11:06pm Aspiration into airway January 04, 2025 11:06pm Malignancy associated hypercalcemia Apri l 2024 11:06pm Multiple myeloma January 11, 2025 9:03am Anemia January 11, 2025 9:03am Hypercalcemia of malignancy January 11 9:03am Multiple myeloma January 18, 2025 10:07 am Anemia January 18, 2025 10:07 am Hypercalcemia of malignancy January 18 10:07am Multiple myeloma January 25, 2025 9:59a m Anemia January 25, 2025 9:59a m Hypercalcemia of malignancy January 25 9:59am Multiple myeloma February 01, 2025 10:22 am Anemia February 01, 2025 10:22 am Hypercalcemia of malignancy February 01 10:22am Multiple myeloma February 08, 2025 10:32 am Anemia February 08, 2025 10:32 am Hypercalcemia of malignancy February 08 10:32am Multiple myeloma February 15, 2025 9:59 am Anemia February 15, 2025 9:59 am Hypercalcemia of malignancy February 15, 2 025 9:59am Chief Complaint Admit Date 6 MO - LABS 1 WK PRIOR November 29, 2024 9:19am Monoclonal gammopathy December 02, 2024 7 :33am CONSULT - BONE METS December 06, 2024 12: 40pm MGUS December 13, 2024 9:25 am DISCUSS TREATMENT OPTIONS December 20 9:35am CHEMO ED,CHECK ROUTING SLIP December 22, 2024 10:27am NEW START - LABS - SCOUT/VELCADE January 042024 9:07am HYPOXIA, ASPIRATION EVENT, N/V December 11:06pm HYPOXIA, ASPIRATION EVENT, N/V December 11:26am HYPOXIA, ASPIRATION EVENT, N/V January 06, 2025 10:24am 1 WK - LABS - SCOUT/VELCADE January 11, 2025 9:03am 1 WK - LABS - SCOTU/VELCADE January 18 10:07am C90.00 Multiple myeloma not having achie vito remiss January 18, 2025 12:39pm 1 WK - LABS - SCOUT/VELCADE January 25 9:59am 1 WK - LABS - SCOUT/VELCADE February 01 10:22am 1 WK - LABS - SCOUT/VELCADE February 08 10:32am 1 WK - LABS - SCOUT/VLECADE February 15 9:59am 1 WK - LABS - SCOUT/VELCADE February 22 9:58am [email or web address] February 22, 2025 10:1 5am Reason for Visit Admit Date MGUS (monoclonal gammopathy of unknown s ignificance) November 29, 2024 9:19am Multiple myeloma December 06, 2024 12: 40pm Multiple myeloma December 20, 2024 9:3 5am Anemia December 20, 2024 9:3 5am Encounter for education December 22, 2024 10:27am Multiple myeloma December 22, 2024 10: 27am Anemia December 22, 2024 10: 27am Multiple myeloma January 04, 2025 9:0 7am Anemia January 04, 2025 9:0 7am Hypercalcemia of malignancy Kim 29th, 2025 9:07am Aspiration pneumonia January 04, 2025 11 :06pm Acute encephalopathy January 04, 2025 11 :06pm Acute hypoxemic respiratory failure Apri l 2024 11:06pm Aspiration into airway January 04, 2025 11:06pm Malignancy associated hypercalcemia Apri l 2024 11:06pm Multiple myeloma January 11, 2025 9:03am Anemia January 11, 2025 9:03am Hypercalcemia of malignancy January 11 9:03am Multiple myeloma January 18, 2025 10:07 am Anemia January 18, 2025 10:07 am Hypercalcemia of malignancy January 18 10:07am Multiple myeloma January 25, 2025 9:59a m Anemia January 25, 2025 9:59a m Hypercalcemia of malignancy January 25 9:59am Multiple myeloma February 01, 2025 10:22 am Anemia February 01, 2025 10:22 am Hypercalcemia of malignancy February 01 10:22am Multiple myeloma February 08, 2025 10:32 am Anemia February 08, 2025 10:32 am Hypercalcemia of malignancy February 08 10:32am Multiple myeloma February 15, 2025 9:59 am Anemia February 15, 2025 9:59 am Hypercalcemia of malignancy February 15, 025 9:59am Multiple myeloma February 22, 2025 9:58 am Anemia February 22, 2025 9:58 am Chief Complaint Admit Date 6 MO - LABS 1 WK PRIOR November 29, 2024 9:19am Monoclonal gammopathy December 02, 2024 7 :33am CONSULT - BONE METS December 06, 2024 12: 40pm MGUS December 13, 2024 9:25 am DISCUSS TREATMENT OPTIONS December 20 9:35am CHEMO ED,CHECK ROUTING SLIP December 22, 2024 10:27am NEW START - LABS - SCOUT/VELCADE January 042024 9:07am HYPOXIA, ASPIRATION EVENT, N/V December 11:06pm HYPOXIA, ASPIRATION EVENT, N/V December 11:26am HYPOXIA, ASPIRATION EVENT, N/V January 06, 2025 10:24am 1 WK - LABS - SCOUT/VELCADE January 11, 2025 9:03am 1 WK - LABS - SCOUT/VELCADE January 18 10:07am C90.00 Multiple myeloma not having achie vito remiss January 18, 2025 12:39pm 1 WK - LABS - SCOUT/VELCADE January 25 9:59am 1 WK - LABS - SCOUT/VELCADE February 01 10:22am 1 WK - LABS - SCOUT/VELCADE February 08 10:32am 1 WK - LABS - SCOUT/VLECADE February 15 9:59am 1 WK - LABS - SCOUT/VELCADE February 22 9:58am 1 WK - LABS - VELCADE/SCOUT March 01 10:21am [email or web address] March 01, 2025 10:4 5am Reason for Visit Admit Date MGUS (monoclonal gammopathy of unknown s ignificance) November 29, 2024 9:19am Multiple myeloma December 06, 2024 12: 40pm Multiple myeloma December 20, 2024 9:3 5am Anemia December 20, 2024 9:3 5am Encounter for education December 22, 2024 10:27am Multiple myeloma December 22, 2024 10: 27am Anemia December 22, 2024 10: 27am Multiple myeloma January 04, 2025 9:0 7am Anemia January 04, 2025 9:0 7am Hypercalcemia of malignancy January 04, 2025 9:07am Aspiration pneumonia January 04, 2025 11 :06pm Acute encephalopathy January 04, 2025 11 :06pm Acute hypoxemic respiratory failure Apri l 2024 11:06pm Aspiration into airway January 04, 2025 11:06pm Malignancy associated hypercalcemia Apri l 2024 11:06pm Multiple myeloma January 11, 2025 9:03am Anemia January 11, 2025 9:03am Hypercalcemia of malignancy January 11 9:03am Multiple myeloma January 18, 2025 10:07 am Anemia January 18, 2025 10:07 am Hypercalcemia of malignancy January 18 10:07am Multiple myeloma January 25, 2025 9:59a m Anemia January 25, 2025 9:59a m Hypercalcemia of malignancy January 25 9:59am Multiple myeloma February 01, 2025 10:22 am Anemia February 01, 2025 10:22 am Hypercalcemia of malignancy February 01 10:22am Multiple myeloma February 08, 2025 10:32 am Anemia February 08, 2025 10:32 am Hypercalcemia of malignancy February 08 10:32am Multiple myeloma February 15, 2025 9:59 am Anemia February 15, 2025 9:59 am Hypercalcemia of malignancy February 15 025 9:59am Multiple myeloma February 22, 2025 9:58 am Anemia February 22, 2025 9:58 am Multiple myeloma March 01, 2025 10:2 1am Anemia March 01, 2025 10:2 1am Chief Complaint Admit Date 6 MO - LABS 1 WK PRIOR November 29, 2024 9:19am Monoclonal gammopathy December 02, 2024 7 :33am CONSULT - BONE METS December 06, 2024 12: 40pm MGUS December 13, 2024 9:25 am DISCUSS TREATMENT OPTIONS December 20 9:35am CHEMO ED,CHECK ROUTING SLIP December 22, 2024 10:27am NEW START - LABS - SCOUT/VELCADE January 042024 9:07am HYPOXIA, ASPIRATION EVENT, N/V December 11:06pm HYPOXIA, ASPIRATION EVENT, N/V December 11:26am HYPOXIA, ASPIRATION EVENT, N/V January 06, 2025 10:24am 1 WK - LABS - SCOUT/VELCADE January 11, 2025 9:03am 1 WK - LABS - SCOUT/VELCADE January 18 10:07am C90.00 Multiple myeloma not having achie vito remiss January 18, 2025 12:39pm 1 WK - LABS - SCOUT/VELCADE January 25 9:59am 1 WK - LABS - SCOUT/VELCADE February 01 10:22am 1 WK - LABS - SCOUT/VELCADE February 08 10:32am 1 WK - LABS - SCOUT/VLECADE February 15 9:59am 1 WK - LABS - SCOUT/VELCADE February 22 9:58am 1 WK - LABS - VELCADE/SCOUT March 01 10:21am 1 WK - LABS - VELCADE March 08, 2025 1:0 5pm [email or web address] March 08, 2025 1:15p m Reason for Visit Admit Date MGUS (monoclonal gammopathy of unknown s ignificance) November 29, 2024 9:19am Multiple myeloma December 06, 2024 12: 40pm Multiple myeloma December 20, 2024 9:3 5am Anemia December 20, 2024 9:3 5am Encounter for education December 22, 2024 10:27am Multiple myeloma December 22, 2024 10: 27am Anemia December 22, 2024 10: 27am Multiple myeloma January 04, 2025 9:0 7am Anemia January 04, 2025 9:0 7am Hypercalcemia of malignancy January 04, 2025 9:07am Aspiration pneumonia January 04, 2025 11 :06pm Acute encephalopathy January 04, 2025 11 :06pm Acute hypoxemic respiratory failure Apri l 2024 11:06pm Aspiration into airway January 04, 2025 11:06pm Malignancy associated hypercalcemia Apri l 2024 11:06pm Multiple myeloma January 11, 2025 9:03am Anemia January 11, 2025 9:03am Hypercalcemia of malignancy January 11 9:03am Multiple myeloma January 18, 2025 10:07 am Anemia January 18, 2025 10:07 am Hypercalcemia of malignancy January 18 10:07am Multiple myeloma January 25, 2025 9:59a m Anemia January 25, 2025 9:59a m Hypercalcemia of malignancy January 25 9:59am Multiple myeloma February 01, 2025 10:22 am Anemia February 01, 2025 10:22 am Hypercalcemia of malignancy February 01 10:22am Multiple myeloma February 08, 2025 10:32 am Anemia February 08, 2025 10:32 am Hypercalcemia of malignancy February 08 10:32am Multiple myeloma February 15, 2025 9:59 am Anemia February 15, 2025 9:59 am Hypercalcemia of malignancy February 15 9:59am Multiple myeloma February 22, 2025 9:58 am Anemia February 22, 2025 9:58 am Multiple myeloma March 01, 2025 10:2 1am Anemia March 01, 2025 10:2 1am Multiple myeloma March 08, 2025 1:05p m Anemia March 08, 2025 1:05p m Chief Complaint Admit Date 6 MO - LABS 1 WK PRIOR November 29, 2024 9:19am Monoclonal gammopathy December 02, 2024 7 :33am CONSULT - BONE METS December 06, 2024 12: 40pm MGUS December 13, 2024 9:25 am DISCUSS TREATMENT OPTIONS December 20 9:35am CHEMO ED,CHECK ROUTING SLIP December 22, 2024 10:27am NEW START - LABS - SCOUT/VELCADE January 042024 9:07am HYPOXIA, ASPIRATION EVENT, N/V December 11:06pm HYPOXIA, ASPIRATION EVENT, N/V December 11:26am HYPOXIA, ASPIRATION EVENT, N/V January 06, 2025 10:24am 1 WK - LABS - SCOUT/VELCADE January 11, 2025 9:03am 1 WK - LABS - SCOUT/VELCADE January 18 10:07am C90.00 Multiple myeloma not having achie vito remiss January 18, 2025 12:39pm 1 WK - LABS - SCOUT/VELCADE January 25 9:59am 1 WK - LABS - SCOUT/VELCADE February 01 10:22am 1 WK - LABS - SCOUT/VELCADE February 08 10:32am 1 WK - LABS - SCOUT/VLECADE February 15 9:59am 1 WK - LABS - SCOUT/VELCADE February 22 9:58am 1 WK - LABS - VELCADE/SCOUT March 01 10:21am 1 WK - LABS - VELCADE March 08, 2025 1:0 5pm 1 WK - LABS - VELCADE/SCOUT March 15 12:53pm [email or web address] March 15, 2025 1:15p m Reason for Visit Admit Date MGUS (monoclonal gammopathy of unknown s ignificance) November 29, 2024 9:19am Multiple myeloma December 06, 2024 12: 40pm Multiple myeloma December 20, 2024 9:3 5am Anemia December 20, 2024 9:3 5am Encounter for education December 22, 2024 10:27am Multiple myeloma December 22, 2024 10: 27am Anemia December 22, 2024 10: 27am Multiple myeloma January 04, 2025 9:0 7am Anemia January 04, 2025 9:0 7am Hypercalcemia of malignancy January 04, 2025 9:07am Aspiration pneumonia January 04, 2025 11 :06pm Acute encephalopathy January 04, 2025 11 :06pm Acute hypoxemic respiratory failure Apri l 2024 11:06pm Aspiration into airway January 04, 2025 11:06pm Malignancy associated hypercalcemia Apri l 2024 11:06pm Multiple myeloma January 11, 2025 9:03am Anemia January 11, 2025 9:03am Hypercalcemia of malignancy January 11 9:03am Multiple myeloma January 18, 2025 10:07 am Anemia January 18, 2025 10:07 am Hypercalcemia of malignancy January 18 10:07am Multiple myeloma January 25, 2025 9:59a m Anemia January 25, 2025 9:59a m Hypercalcemia of malignancy January 25 9:59am Multiple myeloma February 01, 2025 10:22 am Anemia February 01, 2025 10:22 am Hypercalcemia of malignancy February 01 10:22am Multiple myeloma February 08, 2025 10:32 am Anemia February 08, 2025 10:32 am Hypercalcemia of malignancy February 08 10:32am Multiple myeloma February 15, 2025 9:59 am Anemia February 15, 2025 9:59 am Hypercalcemia of malignancy February 15 9:59am Multiple myeloma February 22, 2025 9:58 am Anemia February 22, 2025 9:58 am Multiple myeloma March 01, 2025 10:2 1am Anemia March 01, 2025 10:2 1am Multiple myeloma March 08, 2025 1:05p m Anemia March 08, 2025 1:05p m Multiple myeloma March 15, 2025 12:53 pm Anemia March 15, 2025 12:53 pm Chief Complaint Admit Date 6 MO - LABS 1 WK PRIOR November 29, 2024 9:19am Monoclonal gammopathy December 02, 2024 7 :33am CONSULT - BONE METS December 06, 2024 12: 40pm MGUS December 13, 2024 9:25 am DISCUSS TREATMENT OPTIONS December 20 9:35am CHEMO ED,CHECK ROUTING SLIP December 22, 2024 10:27am NEW START - LABS - SCOUT/VELCADE January 042024 9:07am HYPOXIA, ASPIRATION EVENT, N/V December 11:06pm HYPOXIA, ASPIRATION EVENT, N/V December 11:26am HYPOXIA, ASPIRATION EVENT, N/V January 06, 2025 10:24am 1 WK - LABS - SCOUT/VELCADE January 11, 2025 9:03am 1 WK - LABS - SCOUT/VELCADE January 18 10:07am C90.00 Multiple myeloma not having achie vito remiss January 18, 2025 12:39pm 1 WK - LABS - SCOUT/VELCADE January 25 9:59am 1 WK - LABS - SCOUT/VELCADE February 01 10:22am 1 WK - LABS - SCOUT/VELCADE February 08 10:32am 1 WK - LABS - SCOUT/VLECADE February 15 9:59am 1 WK - LABS - SCOUT/VELCADE February 22 9:58am 1 WK - LABS - VELCADE/SCOUT March 01 10:21am 1 WK - LABS - VELCADE March 08, 2025 1:0 5pm 1 WK - LABS - VELCADE/SCOUT March 15 12:53pm 2 WK - LABS - SCOUT/VELCADE/ZOMETA March 092024 9:38am [email or web address] March 29, 2025 9:45 am Reason for Visit Admit Date MGUS (monoclonal gammopathy of unknown s ignificance) November 29, 2024 9:19am Multiple myeloma December 06, 2024 12: 40pm Multiple myeloma December 20, 2024 9:3 5am Anemia December 20, 2024 9:3 5am Encounter for education December 22, 2024 10:27am Multiple myeloma December 22, 2024 10: 27am Anemia December 22, 2024 10: 27am Multiple myeloma January 04, 2025 9:0 7am Anemia January 04, 2025 9:0 7am Hypercalcemia of malignancy January 04, 2025 9:07am Aspiration pneumonia January 04, 2025 11 :06pm Acute encephalopathy January 04, 2025 11 :06pm Acute hypoxemic respiratory failure Apri l 2024 11:06pm Aspiration into airway January 04, 2025 11:06pm Malignancy associated hypercalcemia Apri l 2024 11:06pm Multiple myeloma January 11, 2025 9:03am Anemia January 11, 2025 9:03am Hypercalcemia of malignancy January 11 9:03am Multiple myeloma January 18, 2025 10:07 am Anemia January 18, 2025 10:07 am Hypercalcemia of malignancy January 18 10:07am Multiple myeloma January 25, 2025 9:59a m Anemia January 25, 2025 9:59a m Hypercalcemia of malignancy January 25 9:59am Multiple myeloma February 01, 2025 10:22 am Anemia February 01, 2025 10:22 am Hypercalcemia of malignancy February 01 10:22am Multiple myeloma February 08, 2025 10:32 am Anemia February 08, 2025 10:32 am Hypercalcemia of malignancy February 08 10:32am Multiple myeloma February 15, 2025 9:59 am Anemia February 15, 2025 9:59 am Hypercalcemia of malignancy February 15 9:59am Multiple myeloma February 22, 2025 9:58 am Anemia February 22, 2025 9:58 am Multiple myeloma March 01, 2025 10:2 1am Anemia March 01, 2025 10:2 1am Multiple myeloma March 08, 2025 1:05p m Anemia March 08, 2025 1:05p m Multiple myeloma March 15, 2025 12:53 pm Anemia March 15, 2025 12:53 pm Encounter for chemotherapy management Ju ly 2024 9:38am Multiple myeloma March 29, 2025 9:38 am Anemia March 29, 2025 9:38 am Chief Complaint Admit Date MGUS December 13, 2024 9:25 am DISCUSS TREATMENT OPTIONS December 20 9:35am CHEMO ED,CHECK ROUTING SLIP December 22, 2024 10:27am NEW START - LABS - SCOUT/VELCADE January 042024 9:07am HYPOXIA, ASPIRATION EVENT, N/V December 11:06pm HYPOXIA, ASPIRATION EVENT, N/V December 11:26am HYPOXIA, ASPIRATION EVENT, N/V January 06, 2025 10:24am 1 WK - LABS - SCOUT/VELCADE January 11, 2025 9:03am 1 WK - LABS - SCOUT/VELCADE January 18 10:07am C90.00 Multiple myeloma not having achie vito remiss January 18, 2025 12:39pm 1 WK - LABS - SCOUT/VELCADE January 25 9:59am 1 WK - LABS - SCOUT/VELCADE February 01 10:22am 1 WK - LABS - SCOUT/VELCADE February 08 10:32am 1 WK - LABS - SCOUT/VLECADE February 15 9:59am 1 WK - LABS - SCOUT/VELCADE February 22 9:58am 1 WK - LABS - VELCADE/SCOUT March 01 10:21am 1 WK - LABS - VELCADE March 08, 2025 1:0 5pm 1 WK - LABS - VELCADE/SCOUT March 15 12:53pm 2 WK - LABS - SCOUT/VELCADE/ZOMETA March 092024 9:38am [email or web address] April 12, 2025 10: 00am 2 WKS - LABS - SCOUT/VELCADE April 12, 2025 10:20am Reason for Visit Admit Date Multiple myeloma December 20, 2024 9:3 5am Anemia December 20, 2024 9:3 5am Encounter for education December 22, 2024 10:27am Multiple myeloma December 22, 2024 10: 27am Anemia December 22, 2024 10: 27am Multiple myeloma January 04, 2025 9:0 7am Anemia January 04, 2025 9:0 7am Hypercalcemia of malignancy January 04, 2025 9:07am Aspiration pneumonia January 04, 2025 11 :06pm Acute encephalopathy January 04, 2025 11 :06pm Acute hypoxemic respiratory failure Apri l 2024 11:06pm Aspiration into airway January 04, 2025 11:06pm Malignancy associated hypercalcemia Apri l 2024 11:06pm Multiple myeloma January 11, 2025 9:03am Anemia January 11, 2025 9:03am Hypercalcemia of malignancy January 11 9:03am Multiple myeloma January 18, 2025 10:07 am Anemia January 18, 2025 10:07 am Hypercalcemia of malignancy January 18 10:07am Multiple myeloma January 25, 2025 9:59a m Anemia January 25, 2025 9:59a m Hypercalcemia of malignancy January 25 9:59am Multiple myeloma February 01, 2025 10:22 am Anemia February 01, 2025 10:22 am Hypercalcemia of malignancy February 01 10:22am Multiple myeloma February 08, 2025 10:32 am Anemia February 08, 2025 10:32 am Hypercalcemia of malignancy February 08 10:32am Multiple myeloma February 15, 2025 9:59 am Anemia February 15, 2025 9:59 am Hypercalcemia of malignancy February 15, 025 9:59am Multiple myeloma February 22, 2025 9:58 am Anemia February 22, 2025 9:58 am Multiple myeloma March 01, 2025 10:2 1am Anemia March 01, 2025 10:2 1am Multiple myeloma March 08, 2025 1:05p m Anemia March 08, 2025 1:05p m Multiple myeloma March 15, 2025 12:53 pm Anemia March 15, 2025 12:53 pm Encounter for chemotherapy management Ju ly 2024 9:38am Multiple myeloma March 29, 2025 9:38 am Anemia March 29, 2025 9:38 am Encounter for chemotherapy management Au sharmaine 2024 10:20am Multiple myeloma April 12, 2025 10: 20am Anemia April 12, 2025 10: 20am Chief Complaint Admit Date NEW START - LABS - SCOUT/VELCADE January 042024 9:07am HYPOXIA, ASPIRATION EVENT, N/V December 11:06pm HYPOXIA, ASPIRATION EVENT, N/V December 11:26am HYPOXIA, ASPIRATION EVENT, N/V January 06, 2025 10:24am 1 WK - LABS - SCOUT/VELCADE January 11, 2025 9:03am 1 WK - LABS - SCOUT/VELCADE January 18 10:07am C90.00 Multiple myeloma not having achie vito remiss January 18, 2025 12:39pm 1 WK - LABS - SCOUT/VELCADE January 25 9:59am 1 WK - LABS - SCOUT/VELCADE February 01 10:22am 1 WK - LABS - SCOUT/VELCADE February 08 10:32am 1 WK - LABS - SCOUT/VLECADE February 15 9:59am 1 WK - LABS - SCOUT/VELCADE February 22 9:58am 1 WK - LABS - VELCADE/SCOUT March 01 10:21am 1 WK - LABS - VELCADE March 08, 2025 1:0 5pm 1 WK - LABS - VELCADE/SCOUT March 15 12:53pm 2 WK - LABS - SCOUT/VELCADE/ZOMETA March 092024 9:38am 2 WKS - LABS - SCOUT/VELCADE April 12, 2025 10:20am 2 WKS - LABS - SCOUT/VELCADE April 26, 2025 1:04pm [email or web address] April 26, 2025 1: 15pm Reason for Visit Admit Date Multiple myeloma January 04, 2025 9:0 7am Anemia January 04, 2025 9:0 7am Hypercalcemia of malignancy January 04, 2025 9:07am Aspiration pneumonia January 04, 2025 11 :06pm Acute encephalopathy January 04, 2025 11 :06pm Acute hypoxemic respiratory failure Apri l 2024 11:06pm Aspiration into airway January 04, 2025 11:06pm Malignancy associated hypercalcemia Apri l 2024 11:06pm Multiple myeloma January 11, 2025 9:03am Anemia January 11, 2025 9:03am Hypercalcemia of malignancy January 11 9:03am Multiple myeloma January 18, 2025 10:07 am Anemia January 18, 2025 10:07 am Hypercalcemia of malignancy January 18 10:07am Multiple myeloma January 25, 2025 9:59a m Anemia January 25, 2025 9:59a m Hypercalcemia of malignancy January 25 9:59am Multiple myeloma February 01, 2025 10:22 am Anemia February 01, 2025 10:22 am Hypercalcemia of malignancy February 01 10:22am Multiple myeloma February 08, 2025 10:32 am Anemia February 08, 2025 10:32 am Hypercalcemia of malignancy February 08 10:32am Multiple myeloma February 15, 2025 9:59 am Anemia February 15, 2025 9:59 am Hypercalcemia of malignancy February 15 9:59am Multiple myeloma February 22, 2025 9:58 am Anemia February 22, 2025 9:58 am Multiple myeloma March 01, 2025 10:2 1am Anemia March 01, 2025 10:2 1am Multiple myeloma March 08, 2025 1:05p m Anemia March 08, 2025 1:05p m Multiple myeloma March 15, 2025 12:53 pm Anemia March 15, 2025 12:53 pm Encounter for chemotherapy management Ju ly 2024 9:38am Multiple myeloma March 29, 2025 9:38 am Anemia March 29, 2025 9:38 am Encounter for chemotherapy management Au sharmaine 2024 10:20am Multiple myeloma April 12, 2025 10: 20am Anemia April 12, 2025 10: 20am Chief Complaint Admit Date 1 WK - LABS - SCOUT/VELCADE January 11, 2025 9:03am 1 WK - LABS - SCOUT/VELCADE January 18 10:07am C90.00 Multiple myeloma not having achie vito remiss January 18, 2025 12:39pm 1 WK - LABS - SCOUT/VELCADE January 25 9:59am 1 WK - LABS - SCOUT/VELCADE February 01 10:22am 1 WK - LABS - SCOUT/VELCADE February 08 10:32am 1 WK - LABS - SCOUT/VLECADE February 15 9:59am 1 WK - LABS - SCOUT/VELCADE February 22 9:58am 1 WK - LABS - VELCADE/SCOUT March 01 10:21am 1 WK - LABS - VELCADE March 08, 2025 1:0 5pm 1 WK - LABS - VELCADE/SCOUT March 15 12:53pm 2 WK - LABS - SCOUT/VELCADE/ZOMETA March 092024 9:38am 2 WKS - LABS - SCOUT/VELCADE April 12, 2025 10:20am 2 WKS - LABS - SCOUT/VELCADE April 26, 2025 1:04pm 2 WKS - LABS - SCOTU/VELCADE May 1:40pm [email or web address] May 10, 2025 1:45pm Reason for Visit Admit Date Multiple myeloma January 11, 2025 9:03am Anemia January 11, 2025 9:03am Hypercalcemia of malignancy January 11 9:03am Multiple myeloma January 18, 2025 10:07 am Anemia January 18, 2025 10:07 am Hypercalcemia of malignancy January 18 10:07am Multiple myeloma January 25, 2025 9:59a m Anemia January 25, 2025 9:59a m Hypercalcemia of malignancy January 25 9:59am Multiple myeloma February 01, 2025 10:22 am Anemia February 01, 2025 10:22 am Hypercalcemia of malignancy February 01 10:22am Multiple myeloma February 08, 2025 10:32 am Anemia February 08, 2025 10:32 am Hypercalcemia of malignancy February 08 10:32am Multiple myeloma February 15, 2025 9:59 am Anemia February 15, 2025 9:59 am Hypercalcemia of malignancy February 15 9:59am Multiple myeloma February 22, 2025 9:58 am Anemia February 22, 2025 9:58 am Multiple myeloma March 01, 2025 10:2 1am Anemia March 01, 2025 10:2 1am Multiple myeloma March 08, 2025 1:05p m Anemia March 08, 2025 1:05p m Multiple myeloma March 15, 2025 12:53 pm Anemia March 15, 2025 12:53 pm Encounter for chemotherapy management Jenni connolly 2024 9:38am Multiple myeloma March 29, 2025 9:38 am Anemia March 29, 2025 9:38 am Encounter for chemotherapy management Au sharmaine 2024 10:20am Multiple myeloma April 12, 2025 10: 20am Anemia April 12, 2025 10: 20am Encounter for chemotherapy management Teresa schmid 2024 1:04pm Multiple myeloma April 26, 2025 1: 04pm Anemia April 26, 2025 1: 04pm Multiple myeloma May 10, 2025 1:40pm Anemia May 10, 2025 1:40pm Chief Complaint Admit Date 1 WK - LABS - SCOUT/VELCADE January 25 9:59am 1 WK - LABS - SCOUT/VELCADE February 01 10:22am 1 WK - LABS - SCOUT/VELCADE February 08 10:32am 1 WK - LABS - SCOUT/VLECADE February 15 9:59am 1 WK - LABS - SCOUT/VELCADE February 22 9:58am 1 WK - LABS - VELCADE/SCOUT March 01 10:21am 1 WK - LABS - VELCADE March 08, 2025 1:0 5pm 1 WK - LABS - VELCADE/SCOUT March 15 12:53pm 2 WK - LABS - SCOUT/VELCADE/ZOMETA March 092024 9:38am 2 WKS - LABS - SCOUT/VELCADE April 12, 2025 10:20am 2 WKS - LABS - SCOUT/VELCADE April 26, 2025 1:04pm 2 WKS - LABS - SCOUT/VELCADE May 1:40pm 2 WKS - LABS - VELCADE/SCOUT May 242024 11:10am [email or web address] May 24, 2025 11:15am Reason for Visit Admit Date Multiple myeloma January 25, 2025 9:59a m Anemia January 25, 2025 9:59a m Hypercalcemia of malignancy January 25 9:59am Multiple myeloma February 01, 2025 10:22 am Anemia February 01, 2025 10:22 am Hypercalcemia of malignancy February 01 10:22am Multiple myeloma February 08, 2025 10:32 am Anemia February 08, 2025 10:32 am Hypercalcemia of malignancy February 08 10:32am Multiple myeloma February 15, 2025 9:59 am Anemia February 15, 2025 9:59 am Hypercalcemia of malignancy February 15, 2 025 9:59am Multiple myeloma February 22, 2025 9:58 am Anemia February 22, 2025 9:58 am Multiple myeloma March 01, 2025 10:2 1am Anemia March 01, 2025 10:2 1am Multiple myeloma March 08, 2025 1:05p m Anemia March 08, 2025 1:05p m Multiple myeloma March 15, 2025 12:53 pm Anemia March 15, 2025 12:53 pm Encounter for chemotherapy management Ju mohsen 2024 9:38am Multiple myeloma March 29, 2025 9:38 am Anemia March 29, 2025 9:38 am Encounter for chemotherapy management Teresa schmid 2024 10:20am Multiple myeloma April 12, 2025 10: 20am Anemia April 12, 2025 10: 20am Encounter for chemotherapy management Au sharmaine 2024 1:04pm Multiple myeloma April 26, 2025 1: 04pm Anemia April 26, 2025 1: 04pm Multiple myeloma May 10, 2025 1:40pm Anemia May 10, 2025 1:40pm Multiple myeloma May 24, 2025 11:10am Anemia May 24, 2025 11:10am Chief Complaint Admit Date 1 WK - LABS - SCOUT/VELCADE February 08 10:32am 1 WK - LABS - SCOUT/VLECADE February 15 9:59am 1 WK - LABS - SCOUT/VELCADE February 22 9:58am 1 WK - LABS - VELCADE/SCOUT March 01 10:21am 1 WK - LABS - VELCADE March 08, 2025 1:0 5pm 1 WK - LABS - VELCADE/SCOUT March 15 12:53pm 2 WK - LABS - SCOUT/VELCADE/ZOMETA March 092024 9:38am 2 WKS - LABS - SCOUT/VELCADE April 12, 2025 10:20am 2 WKS - LABS - SCOUT/VELCADE April 26, 2025 1:04pm 2 WKS - LABS - SCOUT/VELCADE May 1:40pm 2 WKS - LABS - VELCADE/SCOUT May 242024 11:10am 2 WKS - LABS - VELCADE/SCOUT June 072024 12:36pm [email or web address] June 07, 2025 12:45pm WEAKNESS. RX HERE June 08, 2025 12 :00pm Reason for Visit Admit Date Multiple myeloma February 08, 2025 10:32 am Anemia February 08, 2025 10:32 am Hypercalcemia of malignancy February 08 10:32am Multiple myeloma February 15, 2025 9:59 am Anemia February 15, 2025 9:59 am Hypercalcemia of malignancy February 15 9:59am Multiple myeloma February 22, 2025 9:58 am Anemia February 22, 2025 9:58 am Multiple myeloma March 01, 2025 10:2 1am Anemia March 01, 2025 10:2 1am Multiple myeloma March 08, 2025 1:05p m Anemia March 08, 2025 1:05p m Multiple myeloma March 15, 2025 12:53 pm Anemia March 15, 2025 12:53 pm Encounter for chemotherapy management Jenni connolly 2024 9:38am Multiple myeloma March 29, 2025 9:38 am Anemia March 29, 2025 9:38 am Encounter for chemotherapy management Teresa schmid 2024 10:20am Multiple myeloma April 12, 2025 10: 20am Anemia April 12, 2025 10: 20am Encounter for chemotherapy management Teresa schmid 2024 1:04pm Multiple myeloma April 26, 2025 1: 04pm Anemia April 26, 2025 1: 04pm Multiple myeloma May 10, 2025 1:40pm Anemia May 10, 2025 1:40pm Multiple myeloma May 24, 2025 11:10am Anemia May 24, 2025 11:10am Multiple myeloma June 07, 2025 12:36pm Anemia June 07, 2025 12:36pm Chief Complaint Admit Date 1 WK - LABS - VELCADE March 08, 2025 1:0 5pm 1 WK - LABS - VELCADE/SCOUT March 15 12:53pm 2 WK - LABS - SCOUT/VELCADE/ZOMETA March 092024 9:38am 2 WKS - LABS - SCOUT/VELCADE April 12, 2025 10:20am 2 WKS - LABS - SCOUT/VELCADE April 26, 2025 1:04pm 2 WKS - LABS - SCOUT/VELCADE May 1:40pm 2 WKS - LABS - VELCADE/SCOUT May 242024 11:10am 2 WKS - LABS - VELCADE/SCOUT June 072024 12:36pm 2 WKS - LABS - SCOUT/VELCADE June 1:33pm [email or web address] June 21, 2025 1 :45pm WEAKNESS. RX HERE July 01, 2025 1 2:00pm Reason for Visit Admit Date Multiple myeloma March 08, 2025 1:05p m Anemia March 08, 2025 1:05p m Multiple myeloma March 15, 2025 12:53 pm Anemia March 15, 2025 12:53 pm Encounter for chemotherapy management Ju ly 2024 9:38am Multiple myeloma March 29, 2025 9:38 am Anemia March 29, 2025 9:38 am Encounter for chemotherapy management Au sharmaine 2024 10:20am Multiple myeloma April 12, 2025 10: 20am Anemia April 12, 2025 10: 20am Encounter for chemotherapy management Au sharmaine 2024 1:04pm Multiple myeloma April 26, 2025 1: 04pm Anemia April 26, 2025 1: 04pm Multiple myeloma May 10, 2025 1:40pm Anemia May 10, 2025 1:40pm Multiple myeloma May 24, 2025 11:10am Anemia May 24, 2025 11:10am Multiple myeloma June 07, 2025 12:36pm Anemia June 07, 2025 12:36pm Multiple myeloma June 21, 2025 1 :33pm Anemia June 21, 2025 1 :33pm Additional Source Comments INFORMATION SOURCE (unrecogn ized section and content) DATE CREATED AUTHOR 10/31/2021 [facility] DATE CREATED AUTHOR AUTHOR'S ORGANIZ ATION 06/26/2025 [facility] DATE CREATED AUTHOR AUTHOR'S ORGANIZ ATION 07/06/2025 [facility] DATE CREATED AUTHOR AUTHOR'S ORGANIZ ATION 07/20/2025 [facility] Reason for Visit (unrecogniz ed section and content) Reason Comments Nausea Emesis Diarrhea Reason Onset Date Comments Med Refill 11/01/2022 Results 11/01/2022 Reason Onset Date Comments Med Refill 01/14/2023 Reason Comments Hip Pain Right hip and into k nee Reason Onset Date Comments Referral 03/06/2023 [facility] Reason Onset Date Comments Orders 03/24/2023 MRI-Lumbar Reason Comments Urinary Frequency Specialty Diagnoses / Procedures Referred By Hermilo palencia Referred To Contact Physical Therapy Diagnoses Lumbar radiculopathy, acute Osteoarthritis of hip, unspecified laterality, unspecified osteoarthritis type Procedures ND OFFICE/OUTPATIENT NEW HIGH MDM 60-74 MINUTES Femi Stoner, DO [address] [place] [address] [facility] [address] [place] [id number] Referral ID Status Reason Start Date Expiration Date Visits Requested Visits Authorized [id number] Authorized Eval and Treat 03/06/2023 09/02/2023 99 99 Reason Comments Follow-up 6 month med check Specialty Diagnoses / Procedures Referred By Hermilo palencia Referred To Contact Radiology Diagnoses Lumbar radiculopathy, acute Procedures MR lumbar spine wo contrast Femi Stoner, DO [address] [place] [address] [facility] [address] [place] [id number] Referral ID Status Reason Start Date Expiration Date Visits Re quested Visits Authorized [id number] Closed 03/24/2023 09/20/2023 1 1 Reason Comments Results MRI results Cough Feels like in upper chest Reason Onset Date Comments Orders 07/09/2023 Pain Management Reason Onset Date Comments Med Refill 08/07/2023 Reason Onset Date Comments Med Refill 08/30/2023 Reason Onset Date Comments Med Refill 11/13/2023 Reason Onset Date Comments Results 11/17/2023 Reason Comments New Patient Pt is here for pain in her low back more in the center on the spine which radiates down the left leg to the knee. Specialty Diagnoses / Procedures Referred By Hermilo palencia Referred To Contact Pain Medicine Diagnoses Degenerative lumbar spinal stenosis Subacute left lumbar radiculopathy Procedures ND OFFICE/OUTPATIENT NEW HIGH MDM 60-74 MINUTES Femi Stoner, DO [address] [place] [address] [facility] [address] [place] [address] Referral ID Status Reason Start Date Expiration Date V isits Requested Visits Authorized [id number] Closed Specialty Services Required 07/09/2023 07/08/2024 1 1 Reason Comments Medicare Annual Wellness Visit Hao palencia Reason Onset Date Comments Appointment 01/05/2024 Reason Comments Back Pain Specialty Diagnoses / Procedures Referred By Contzakia palencia Referred To Contact Diagnoses Intervertebral disc disorders with radiculopathy, 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 Pain Pts pain today is in her low back and left leg. Pt states the pain she has is not as intense since the procedure. She did have one day that her pain level was an 8/10. Reason Onset Date Comments Urinary Symptom 05/14/2024 Reason Comments Follow-up Med check Flu Vaccine Patient has agreed t o receive influenza vaccine in the office today. Reason Comments Abdominal Pain On right side Reason Onset Date Comments Referral 11/22/2022 Reason Onset Date Comments Back Pain 09/07/2024 Reason Onset Date Comments Back Pain 09/16/2024 Reason Onset Date Comments Referral 09/16/2024 [facility] ment Reason Onset Date Comments Back Pain 09/20/2024 Reason Onset Date Comments Appointment Request 09/20/2024 Reason Comments Back Pain Pt is here to discus s the pain she has in her low back which flared up a week after [place]. Pt states she has had imaging done and has been using medication to help with pain. She is unable to lay down straight because it causes a henok horse, she is unable to stand up straight. She has lost control of her bladder when she lays flat. Pt has some pain in the left leg. She states by the end of the day she is unable to complete her daily functions, she is unable to lift a gallon of milk. Specialty Diagnoses / Procedures Referred By Hermilo t Referred To Contact Pain Medicine Diagnoses Acute left-sided thoracic back pain Degenerative lumbar spinal stenosis Procedures [place] OFFICE/OUTPATIENT [facility] MDM 60 MINUTES Femi Stoner, DO [address] [facility] [address] [place] [address] Phone: tel: fax: Esteban aKn MD [address] [facility] [address] [place] [address] Phone: tel: fax: Referral ID Status Reason Start Date Expiration Date Visits Requested Visits Authorized [id number] Pending Review Specialty Services Required 09/16/2024 09/16/2025 1 1 Reason Onset Date Comments Medication Problem 10/01/2024 Reason Onset Date Comments New Med Request 10/11/2024 Reason Comments Back Pain Pt arrives from MRI with c/o back pain worse after the procedure, pt has had pain since soon after [place] Reason Onset Date Comments Back Pain 10/13/2024 Reason Comments Back Pain Patient was sent in by PCP due to back pain, had MRI yesterday and advised to come to ED Specialty Diagnoses / Procedures Referred By Hermilo t Referred To Contact Diagnoses Closed burst fracture of thoracic vertebra, initial encounter (HCC) Procedures . Katie Brown MD [address] [place] [address] Phone: tel: fax: [facility] [address] [place] [phone] Phone: tel: Referral ID Status Reason Start Date Expiration Date Visits Re quested Visits Authorized [id number] 1 1 Reason Onset Date Comments Orders 11/02/2024 Bone density Reason Comments Hospital Follow-up CRISTY crushed vertebra in back Reason Onset Date Comments UTI 11/07/2024 Reason Onset Date Comments Med Refill 11/08/2024 Reason Onset Date Comments Medication Question 11/11/2024 Reason Onset Date Comments Home Visit 11/11/2024 Request For Order(s) 11/11/2024 Reason Onset Date Comments Transitional Care Management Outreach 11/10/2024 Back Pain 11/10/2024 Back Injury 11/10/2024 Reason Onset Date Comments Medication Question 11/17/2024 Reason Onset Date Comments Diarrhea 11/22/2024 Reason Onset Date Comments New Med Request 11/19/2024 Reason Onset Date Comments Med Refill 12/04/2024 Reason Onset Date Comments Home Visit 12/10/2024 Reason Onset Date Comments Request For Order(s) 01/07/2025 Reason Onset Date Comments Med Refill 01/12/2025 Reason Onset Date Comments Results 11/02/2024 Release of Information 11/02/2024 Reason Onset Date Comments Other 01/21/2025 Home care update /Medication request Reason Comments Consult Specialty Diagnoses / Procedures Referred By Contzakia t Referred To Contact Hematology & Oncology Diagnoses Multiple myeloma not having achieved remission Ruth Acuna MB [facility] [address] [place] [address] Phone: tel: fax: Renny Hernandez Jr., MD, PhD [address] [place] [address] Phone: tel: fax: Referral ID Status Reason Start Date Expiration Date Visits Requested Visits Authorized [id number] New Request Treatment Recommendation 5 01/15/2026 1 1 Reason Onset Date Comments Med Refill 04/19/2025 Reason Comments Med Refill Reason Onset Date Comments Med Refill 06/20/2025 Reason Onset Date Comments Med Refill 07/04/2025 Care Teams (unrecognized sec tion and content) Outpatient Dietitian Relationship Specialty Start Date End Date Reid Malone, DO [address], [place] [phone] PCP - General 02/06/19 12/02/22 Femi Stoner, DO [address], [place] [phone] PCP - General Family Medicine 12/03/22 Outpatient Dietitian Relationship Specialty Start Date End Date Reid Malone, DO [address], [place] [id number] PCP - General 02/06/19 12/02/22 Femi Stoner DO [address], [place] [id number] PCP - General Family Medicine 12/03/22 Outpatient Dietitian Relationship Specialty Start Date End Date Femi Stoner DO [address], [place] [id number] PCP - General Family Medicine 12/03/22 Team Status: Active Member Role Status Dates Dr. Reid Malone , Family Provider Active Dr. Femi Stoner , DO Primary Care Provider Active Team Status: Inactive Member Role Status Dates Dr. Reid Malone , DO Primary Care Provider, Referrin g Provider Active Nathalie Lu ENGINEER INTERNSHIP, ENGINEER INTERNSHIP-C Attending Provider Active Team Status: Active Member Role Status Dates Dr. Brant Tang , DO Attending Provider, Other Prov ider Active Dr. Femi Stoner , DO Primary Care Provider, Referr ing Provider Active Team Status: Inactive Member Role Status Dates Dr. Brant Tang , DO Attending Provider Active Dr. Femi Stoner DO Primary Care Provider, Referr ing Provider Active Team Status: Active Member Role Status Dates Nathalie Lu ENGINEER INTERNSHIP, ENGINEER INTERNSHIP-C Attending Provider, Referrin g Provider Active Dr. Femi Stoner DO Primary Care Provider Active Team Status: Inactive Member Role Status Dates Nathalie Lu ENGINEER INTERNSHIP, ENGINEER INTERNSHIP-C Attending Provider, Referrin g Provider Active Dr. Femi Stoner DO Primary Care Provider Active Outpatient Dietitian Relationship Specialty Start Date End Date Femi Stoner DO [address], [place] [id number] PCP - General Family Medicine 12/03/22 Outpatient Dietitian Relationship Specialty Start Date End Date Femi Stoner, DO [address] [place] [address] PCP - General Family Medicine 12/03/22 Outpatient Dietitian Relationship Specialty Start Date End Date Georgiana Femi Sterling, DO [address] [place] [address] PCP - General Family Medicine 12/03/22 Team Status: Inactive Member Role Status Dates Dr. Femi Stoner , DO Primary Care Provider, Referr ing Provider Active Dr. Brant Tang , DO Attending Provider Active Team Status: Inactive Member Role Status Dates Dr. Femi Stoner , DO Primary Care Provider Active Dr. Brant Tang , DO Attending Provider, Referring Provider Active Outpatient Dietitian Relationship Specialty Start Date End Date Femi Stoner Hallie, DO [address] [place] [address] PCP - General Family Medicine 12/03/22 Outpatient Dietitian Relationship Specialty Start Date End Date Femi Stoner Hallie, DO [address] [place] [address] PCP - General Family Medicine 12/03/22 Outpatient Dietitian Relationship Specialty Start Date End Date Georgiana Femi Sterling, DO [address] [place] [address] PCP - General Family Medicine 12/03/22 Outpatient Dietitian Relationship Specialty Start Date End Date Georgiana Femi Sterling, DO [address], [place] [id number] PCP - General Family Medicine 12/03/22 Outpatient Dietitian Relationship Specialty Start Date End Date Georgiana Femi Sterling, DO [address] [place] [address] PCP - General Family Medicine 12/03/22 Outpatient Dietitian Relationship Specialty Start Date End Date Femi Stoner, [address] [place], [place] [phone] PCP - General Family Medicine 12/03/22 Outpatient Dietitian Relationship Specialty Start Date End Date Femi Stoner, [address] [place] [address] PCP - General Family Medicine 12/03/22 Outpatient Dietitian Relationship Specialty Start Date End Date Femi Stoner, [address] [place] [address] PCP - General Family Medicine 12/03/22 Outpatient Dietitian Relationship Specialty Start Date End Date Femi Stoner, DO [address] [place] [address] PCP - General Family Medicine 12/03/22 Outpatient Dietitian Relationship Specialty Start Date End Date Femi Stoner, [address] [place] [address] PCP - General Family Medicine 12/03/22 Outpatient Dietitian Relationship Specialty Start Date End Date Femi Stoner, [address] [place] [phone] PCP - General Family Medicine 12/03/22 Outpatient Dietitian Relationship Specialty Start Date End Date Femi Stoner, [address] [place] [phone] PCP - General Family Medicine 12/03/22 Outpatient Dietitian Relationship Specialty Start Date End Date Femi Stoner DO [address] [place] [address] PCP - General Family Medicine 12/03/22 Outpatient Dietitian Relationship Specialty Start Date End Date Femi Stoner DO [address] [place] [address] PCP - General Family Medicine 12/03/22 Outpatient Dietitian Relationship Specialty Start Date End Date Femi Stoner DO [address] [place] [address] PCP - General Family Medicine 12/03/22 Outpatient Dietitian Relationship Specialty Start Date End Date Femi Stoner DO [address] [place] [address] PCP - General Family Medicine 12/03/22 Team Status: Inactive Member Role Status Dates Dr. Femi tSoner DO Primary Care Provider, Referr ing Provider Active Dr. Ruth Acuna MD Attending Provider Active Team Status: Active Member Role Status Dates Dr. Femi Stoner DO Primary Care Provider Active Dr. Ruth Acuna MD Attending Provider, Referrin g Provider Active Team Status: Inactive Member Role Status Dates Dr. Femi Stoner DO Primary Care Provider Active Dr. Ruth Acuna MD Attending Provider, Referrin g Provider Active Outpatient Dietitian Relationship Specialty Start Date End Date Femi Stoner, DO [address] [place] [address] PCP - General Family Medicine 12/03/22 Outpatient Dietitian Relationship Specialty Start Date End Date Femi Stoner DO [address] [place] [address] PCP - General Family Medicine 12/03/22 Outpatient Dietitian Relationship Specialty Start Date End Date GeorgianaFemi, DO [address] [place] [phone] PCP - General Family Medicine 12/03/22 Outpatient Dietitian Relationship Specialty Start Date End Date Georgiana Femi Sterling, DO [address] [place] [phone] PCP - General Family Medicine 12/03/22 Outpatient Dietitian Relationship Specialty Start Date End Date Georgiana Femi Sterling, DO [address] [place] [phone] PCP - General Family Medicine 12/03/22 Outpatient Dietitian Relationship Specialty Start Date End Date Georgiana Femi Sterling, DO [address] [place] [phone] PCP - General Family Medicine 12/03/22 Outpatient Dietitian Relationship Specialty Start Date End Date Georgiana Femi Sterling, DO [address] [place] [phone] PCP - General Family Medicine 12/03/22 Outpatient Dietitian Relationship Specialty Start Date End Date Georgiana Femi Sterling, DO [address] [place] [phone] PCP - General Family Medicine 12/03/22 Outpatient Dietitian Relationship Specialty Start Date End Date Georgiana Femi Sterling, DO [address] [place] [phone] PCP - General Family Medicine 12/03/22 Outpatient Dietitian Relationship Specialty Start Date End Date Femi Stoner DO [address] [place] [address] PCP - General Family Medicine 12/03/22 Outpatient Dietitian Relationship Specialty Start Date End Date Reid Malone, DO [address], [place] [phone] PCP - General 02/06/19 Outpatient Dietitian Relationship Specialty Start Date End Date Reid Malone, [address], [place] [id number] PCP - General 02/06/19 Outpatient Dietitian Relationship Specialty Start Date End Date Reid Malone, [address], [place] [phone] PCP - General 02/06/19 Outpatient Dietitian Relationship Specialty Start Date End Date Reid Malone, [address], [place] [phone] PCP - General 02/06/19 Outpatient Dietitian Relationship Specialty Start Date End Date Femi Stoner DO [address] [place] [address] PCP - General Family Medicine 12/03/22 Outpatient Dietitian Relationship Specialty Start Date End Date Femi Stoner, DO [address] [place] [address] PCP - General Family Medicine 12/03/22 Outpatient Dietitian Relationship Specialty Start Date End Date Femi Stoner, [address] [place] [address] PCP - General Family Medicine 12/03/22 Outpatient Dietitian Relationship Specialty Start Date End Date GeorgianaFemi, DO [address] [place] [phone] PCP - General Family Medicine 12/03/22 Outpatient Dietitian Relationship Specialty Start Date End Date Georgiana Femi Sterling, DO [address] [place] [phone] PCP - General Family Medicine 12/03/22 Outpatient Dietitian Relationship Specialty Start Date End Date Georgiana Femi Sterling, DO [address] [place] [phone] PCP - General Family Medicine 12/03/22 Outpatient Dietitian Relationship Specialty Start Date End Date Georgiana Femi Sterling, DO [address] [place] [phone] PCP - General Family Medicine 12/03/22 Outpatient Dietitian Relationship Specialty Start Date End Date Georgiana Femi Sterling, DO [address] [place] [phone] PCP - General Family Medicine 12/03/22 Outpatient Dietitian Relationship Specialty Start Date End Date Georgiana Femi Sterling, DO [address] [place] [phone] PCP - General Family Medicine 12/03/22 Outpatient Dietitian Relationship Specialty Start Date End Date Georgiana Femi Sterling, DO [address] [place] [phone] PCP - General Family Medicine 12/03/22 Nahomi Clark, RN Registered Nurse Network Director Manager 10/18/24 Outpatient Dietitian Relationship Specialty Start Date End Date Femi Stoner, DO [address] [place] [address] PCP - General Family Medicine 12/03/22 Nahomi Clark, RN Registered Nurse Network Director Manager 10/18/24 Outpatient Dietitian Relationship Specialty Start Date End Date Femi Stoner, DO [address] [place] [phone] PCP - General Family Medicine 12/03/22 Nahomi Clark, RN Registered Nurse Network Director Manager 10/18/24 Outpatient Dietitian Relationship Specialty Start Date End Date Femi Stoner, DO [address] [place] [phone] PCP - General Family Medicine 12/03/22 Nahomi Clark, RN Registered Nurse Network Director Manager 10/18/24 Outpatient Dietitian Relationship Specialty Start Date End Date Femi Stoner, DO [address] [place] [phone] PCP - General Family Medicine 12/03/22 Nahomi Clark, RN Registered Nurse Network Director Manager 10/18/2411/06 Leena Joseph, upper and bottom lacer handPiano Mechanic Apprentice Hydraulic Design Engineer 11/12/24 Outpatient Dietitian Relationship Specialty Start Date End Date Femi Stoner, DO [address] [place] [address] PCP - General Family Medicine 12/03/22 Nahomi Clark, RN Registered Nurse Network Director Manager 10/18/24 Leena Joseph, upper and bottom lacer handPiano Mechanic Apprentice Hydraulic Design Engineer 11/12/24 Outpatient Dietitian Relationship Specialty Start Date End Date Femi Stoner, DO [address] [place] [phone] PCP - General Family Medicine 12/03/22 Leena Joseph, upper and bottom lacer handPiano Mechanic Apprentice Hydraulic Design Engineer 11/12/24 Outpatient Dietitian Relationship Specialty Start Date End Date Femi Stoner, DO [address] [place] [phone] PCP - General Family Medicine 12/03/22 Leena Joseph, upper and bottom lacer handPiano Mechanic Apprentice Hydraulic Design Engineer 11/12/24 Outpatient Dietitian Relationship Specialty Start Date End Date RaghuFemi fisher, DO [address] [place] [phone] PCP - General Family Medicine 12/03/22 Leena Joseph, upper and bottom lacer handPiano Mechanic Apprentice Hydraulic Design Engineer 11/12/24 Outpatient Dietitian Relationship Specialty Start Date End Date Femi Stoner, DO [address] [place] [phone] PCP - General Family Medicine 12/03/22 Leena Joseph, upper and bottom lacer handPiano Mechanic Apprentice Hydraulic Design Engineer 11/12/24 Team Status: Active Member Role Status Dates Dr. Femi Stoner DO Primary Care Provider Active Team Status: Inactive Member Role Status Dates Dr. Femi Stoner DO Primary Care Provider Active Start: October 10, 2024 End: October 10, 2024 Dr. Finn Pride DO Attending Provider Active Start : October 10, 2024 End: October 10, 2024 Dr. Finn Pride DO Emergency Provider Active Start : October 10, 2024 End: October 10, 2024 Team Status: Inactive Member Role Status Dates Dr. Ruth Acuna MD Attending Provider Active Start: November 29, 2024 End: November 29, 2024 Dr. Femi Stoner DO Primary Care Provider Active Start: November 29, 2024 End: November 29, 2024 Dr. Femi Stoner DO Referring Provider Active Start: November 29, 2024 End: November 29, 2024 Team Status: Active Member Role Status Dates Dr. Femi Stoner DO Primary Care Provider Active Start: November 29, 2024 Dr. Ruth Acuna MD Attending Provider Active Start: November 29, 2024 Dr. Ruth Acuna MD Referring Provider Active Start: November 29, 2024 Team Status: Inactive Member Role Status Dates Dr. Femi Stoner DO Primary Care Provider Active Start: December 02, 2024 End: December 02, 2024 Dr. Ruth Acuna MD Attending Provider Active Start: December 02, 2024 End: December 02, 2024 Dr. Ruth Acuna MD Referring Provider Active Start: December 02, 2024 End: December 02, 2024 Team Status: Inactive Member Role Status Dates Dr. Femi Stoner DO Primary Care Provider Active Start: December 06, 2024 End: December 06, 2024 Dr. Femi Stoner DO Referring Provider Active Start: December 06, 2024 End: December 06, 2024 Dr. Joel Angel DO Attending Provider Active Start: December 06, 2024 End: December 06, 2024 Team Status: Inactive Member Role Status Dates Dr. Femi Stoner DO Primary Care Provider Active Start: December 13, 2024 End: December 13, 2024 Dr. Ruth Acuna MD Attending Provider Active Start: December 13, 2024 End: December 13, 2024 Dr. Ruth Acuna MD Referring Provider Active Start: December 13, 2024 End: December 13, 2024 Outpatient Dietitian Relationship Specialty Start Date End Date Femi Stoner DO [address] [place] [phone] PCP - General Family Medicine 12/03/22 Outpatient Dietitian Relationship Specialty Start Date End Date Femi Stoner DO [address] [place] [address] PCP - General Family Medicine 12/03/22 Leena Joseph, upper and bottom lacer handPiano Mechanic Apprentice Hydraulic Design Engineer 11/12/24 12/17/24 Outpatient Dietitian Relationship Specialty Start Date End Date Femi Stoner DO [address] [place] [address] PCP - General Family Medicine 12/03/22 Outpatient Dietitian Relationship Specialty Start Date End Date Femi Stoner DO [address] [place] [address] PCP - General Family Medicine 12/03/22 Team Status: Inactive Member Role Status Dates Dr. Femi Stoner DO Primary Care Provider Active Start: December 20, 2024 End: December 20, 2024 Dr. Femi Stoner DO Referring Provider Active Start: December 20, 2024 End: December 20, 2024 Dr. Ruth Acuna MD Attending Provider Active Start: December 20, 2024 End: December 20, 2024 Team Status: Inactive Member Role Status Dates Dr. Femi Stoner DO Primary Care Provider Active Start: December 22, 2024 End: December 22, 2024 Dr. Femi Stoner DO Referring Provider Active Start: December 22, 2024 End: December 22, 2024 Sis Stoll NP, ENGINEER INTERNSHIP-C Attending Provider Active Start: December 22, 2024 End: December 22, 2024 Team Status: Inactive Member Role Status Dates Dr. Femi Stoner DO Primary Care Provider Active Start: January 04, 2025 End: January 04, 2025 Dr. Femi Stoner DO Referring Provider Active Start: January 04, 2025 End: January 04, 2025 Dr. Ruth Acuna MD Attending Provider Active Start: January 04, 2025 End: January 04, 2025 Team Status: Inactive Member Role Status Dates Dr. Femi Stoner DO Primary Care Provider Active Start: January 04, 2025 End: January 06, 2025 Dr. Ming Galvin MD Emergency Provider Active Sta rt: January 04, 2025 End: January 06, 2025 Dr. Soumya Louis MD Admit Provider Active St art: January 04, 2025 End: January 06, 2025 Dr. Soumya Louis MD Other Provider Active St art: January 04, 2025 End: January 06, 2025 Dr. Richard Dias DO Attending Provider Active Start: January 04, 2025 End: January 06, 2025 Team Status: Active Member Role Status Dates Dr. Femi Stoner DO Primary Care Provider Active Start: January 05, 2025 Dr. Ming Galvin MD Emergency Provider Active Sta rt: January 05, 2025 Dr. Soumya Louis MD Admit Provider Active St art: January 05, 2025 Dr. Soumya Louis MD Other Provider Active St art: January 05, 2025 Dr. Richard Dias DO Attending Provider Active Start: January 05, 2025 Dr. Richard Dias DO Other Provider Active Start: January 05, 2025 Team Status: Active Member Role Status Dates Dr. Femi Stoner DO Primary Care Provider Active Start: January 06, 2025 Dr. Ming Galvin MD Emergency Provider Active Sta rt: January 06, 2025 Dr. Soumya Louis MD Admit Provider Active St art: January 06, 2025 Dr. Soumya Louis MD Other Provider Active St art: January 06, 2025 Dr. Richard Dias DO Attending Provider Active Start: January 06, 2025 Dr. Richard Dias DO Other Provider Active Start: January 06, 2025 Team Status: Inactive Member Role Status Dates Dr. Femi Stoner DO Primary Care Provider Active Start: January 11, 2025 End: January 11, 2025 Dr. Femi Stoner DO Referring Provider Active Start: January 11, 2025 End: January 11, 2025 Sis Stoll ENGINEER INTERNSHIP, ENGINEER INTERNSHIP-C Attending Provider Active Start: January 11, 2025 End: January 11, 2025 Team Status: Inactive Member Role Status Dates Dr. Femi Stoner DO Primary Care Provider Active Start: January 18, 2025 End: January 18, 2025 Dr. Femi Stoner DO Referring Provider Active Start: January 18, 2025 End: January 18, 2025 Sis Stoll ENGINEER INTERNSHIP, ENGINEER INTERNSHIP-C Attending Provider Active Start: January 18, 2025 End: January 18, 2025 Team Status: Active Member Role Status Dates Dr. Femi Stoner DO Primary Care Provider Active Start: January 18, 2025 Dr. Ruth Acuna MD Referring Provider Active Start: January 18, 2025 Sisphillip Stoll ENGINEER INTERNSHIP, ENGINEER INTERNSHIP-C Attending Provider Active Start: January 18, 2025 Outpatient Dietitian Relationship Specialty Start Date End Date Femi Stoner DO [address] [place] [phone] PCP - General Family Medicine 12/03/22 Team Status: Inactive Member Role Status Dates Dr. Femi Stoner DO Primary Care Provider Active Start: January 18, 2025 End: January 18, 2025 Sis Stoll ENGINEER INTERNSHIP, ENGINEER INTERNSHIP-C Attending Provider Active Start: January 18, 2025 End: January 18, 2025 Sis Stoll ENGINEER INTERNSHIP, ENGINEER INTERNSHIP-C Referring Provider Active Start: January 18, 2025 End: January 18, 2025 Outpatient Dietitian Relationship Specialty Start Date End Date Femi Stoner DO [address] [place] [address] PCP - General Family Medicine 12/03/22 Nahomi Clark, RN Registered Nurse Network Director Manager 10/18/2411/06 Leena Joseph RN Care Piano Mechanic Apprentice Hydraulic Design Engineer 11/12/24 12/17/24 Outpatient Dietitian Relationship Specialty Start Date End Date Femi Stoner DO [address] [place] [address] PCP - General Family Medicine 12/03/22 Team Status: Inactive Member Role Status Dates Dr. Femi Stoner DO Primary Care Provider Active Start: January 25, 2025 End: January 25, 2025 Dr. Femi Stoner DO Referring Provider Active Start: January 25, 2025 End: January 25, 2025 Sis Dodie ENGINEER INTERNSHIP, ENGINEER INTERNSHIP-C Attending Provider Active Start: January 25, 2025 End: January 25, 2025 Team Status: Active Member Role Status Dates Dr. Femi Stoner DO Primary Care Provider Active Start: January 25, 2025 Dr. Ruth Acuna MD Referring Provider Active Start: January 25, 2025 Sis Dodie ENGINEER INTERNSHIP, ENGINEER INTERNSHIP-C Attending Provider Active Start: January 25, 2025 Team Status: Inactive Member Role Status Dates Dr. Femi Stoner DO Primary Care Provider Active Start: February 01, 2025 End: February 01, 2025 Dr. Femi Stoner DO Referring Provider Active Start: February 01, 2025 End: February 01, 2025 Dr. Ruth Acuna MD Attending Provider Active Start: February 01, 2025 End: February 01, 2025 Team Status: Active Member Role Status Dates Dr. Femi Stoner DO Primary Care Provider Active Start: February 01, 2025 Dr. Ruth Acuna MD Referring Provider Active Start: February 01, 2025 Sis AguilarDodie ENGINEER INTERNSHIP, ENGINEER INTERNSHIP-C Attending Provider Active Start: February 01, 2025 Team Status: Inactive Member Role Status Dates Dr. Femi Stoner DO Primary Care Provider Active Start: February 08, 2025 End: February 08, 2025 Dr. Femi Stoner DO Referring Provider Active Start: February 08, 2025 End: February 08, 2025 Sis Dodie ENGINEER INTERNSHIP, ENGINEER INTERNSHIP-C Attending Provider Active Start: February 08, 2025 End: February 08, 2025 Team Status: Active Member Role Status Dates Dr. Femi Stoner DO Primary Care Provider Active Start: February 08, 2025 Dr. Ruth Acuna MD Referring Provider Active Start: February 08, 2025 Sis Dodie ENGINEER INTERNSHIP, ENGINEER INTERNSHIP-C Attending Provider Active Start: February 08, 2025 Team Status: Inactive Member Role Status Dates Dr. Femi Stoner DO Primary Care Provider Active Start: February 15, 2025 End: February 15, 2025 Dr. Femi Stoner DO Referring Provider Active Start: February 15, 2025 End: February 15, 2025 Sis Dodie ENGINEER INTERNSHIP, ENGINEER INTERNSHIP-C Attending Provider Active Start: February 15, 2025 End: February 15, 2025 Team Status: Active Member Role Status Dates Dr. Femi Stoner DO Primary Care Provider Active Start: February 15, 2025 Dr. Ruth Acuna MD Referring Provider Active Start: February 15, 2025 Sis Stoll ENGINEER INTERNSHIP, ENGINEER INTERNSHIP-C Attending Provider Active Start: February 15, 2025 Outpatient Dietitian Relationship Specialty Start Date End Date Femi Stoner [address] [place] [id number] PCP - General Family Medicine 12/03/22 Team Status: Inactive Member Role Status Dates Dr. Femi Stoner DO Primary Care Provider Active Start: February 22, 2025 End: February 22, 2025 Dr. Femi Stoner DO Referring Provider Active Start: February 22, 2025 End: February 22, 2025 Dr. Ruth Acuna MD Attending Provider Active Start: February 22, 2025 End: February 22, 2025 Team Status: Active Member Role Status Dates Dr. Femi Stoner DO Primary Care Provider Active Start: February 22, 2025 Dr. Ruth Acuna MD Referring Provider Active Start: February 22, 2025 Sis Stoll NP, ENGINEER INTERNSHIP-C Attending Provider Active Start: February 22, 2025 Team Status: Inactive Member Role Status Dates Dr. Femi Stoner DO Primary Care Provider Active Start: March 01, 2025 End: March 01, 2025 Dr. Femi Stoner DO Referring Provider Active Start: March 01, 2025 End: March 01, 2025 Sis Stoll ENGINEER INTERNSHIP, ENGINEER INTERNSHIP-C Attending Provider Active Start: March 01, 2025 End: March 01, 2025 Team Status: Active Member Role Status Dates Dr. Femi Stoner DO Primary Care Provider Active Start: March 01, 2025 Dr. Ruth Acuna MD Referring Provider Active Start: March 01, 2025 Sis Stoll ENGINEER INTERNSHIP, ENGINEER INTERNSHIP-C Attending Provider Active Start: March 01, 2025 Team Status: Active Member Role/Relationship Status Dates Dr. Femi Stoner DO Primary Care Provider Active Team Status: Inactive Member Role/Relationship Status Dates Dr. Ruth Acuna MD Attending Provider Active Start: November 29, 2024 End: November 29, 2024 Dr. Femi Stoner DO Primary Care Provider Active Start: November 29, 2024 End: November 29, 2024 Dr. Femi Stoner DO Referring Provider Active Start: November 29, 2024 End: November 29, 2024 Team Status: Inactive Member Role/Relationship Status Dates Dr. Femi Stoner DO Primary Care Provider Active Start: December 02, 2024 End: December 02, 2024 Dr. Ruth Acuna MD Attending Provider Active Start: December 02, 2024 End: December 02, 2024 Dr. Ruth Acuna MD Referring Provider Active Start: December 02, 2024 End: December 02, 2024 Team Status: Inactive Member Role/Relationship Status Dates Dr. Femi Stoner DO Primary Care Provider Active Start: December 06, 2024 End: December 06, 2024 Dr. Femi Stoner DO Referring Provider Active Start: December 06, 2024 End: December 06, 2024 Dr. Joel Angel DO Attending Provider Active Start: December 06, 2024 End: December 06, 2024 Team Status: Inactive Member Role/Relationship Status Dates Dr. Femi Stoner DO Primary Care Provider Active Start: December 13, 2024 End: December 13, 2024 Dr. Ruth Acuna MD Attending Provider Active Start: December 13, 2024 End: December 13, 2024 Dr. Ruth Acuna MD Referring Provider Active Start: December 13, 2024 End: December 13, 2024 Team Status: Inactive Member Role/Relationship Status Dates Dr. Femi Stoner DO Primary Care Provider Active Start: December 20, 2024 End: December 20, 2024 Dr. Femi Stoner DO Referring Provider Active Start: December 20, 2024 End: December 20, 2024 Dr. Ruth Acuna MD Attending Provider Active Start: December 20, 2024 End: December 20, 2024 Team Status: Inactive Member Role/Relationship Status Dates Dr. Femi Stoner DO Primary Care Provider Active Start: December 22, 2024 End: December 22, 2024 Dr. Femi Stoner DO Referring Provider Active Start: December 22, 2024 End: December 22, 2024 Sis Stoll ENGINEER INTERNSHIP, ENGINEER INTERNSHIP-C Attending Provider Active Start: December 22, 2024 End: December 22, 2024 Team Status: Inactive Member Role/Relationship Status Dates Dr. Femi Stoner DO Primary Care Provider Active Start: January 04, 2025 End: January 04, 2025 Dr. Femi Stoner DO Referring Provider Active Start: January 04, 2025 End: January 04, 2025 Dr. Ruth Acuna MD Attending Provider Active Start: January 04, 2025 End: January 04, 2025 Team Status: Inactive Member Role/Relationship Status Dates Dr. Femi Stoner DO Primary Care Provider Active Start: January 04, 2025 End: January 06, 2025 Dr. Ming Galvin MD Emergency Provider Active Sta rt: January 04, 2025 End: January 06, 2025 Dr. Soumya Louis MD Admit Provider Active St art: January 04, 2025 End: January 06, 2025 Dr. Soumya Louis MD Other Provider Active St art: January 04, 2025 End: January 06, 2025 Dr. Richard Dias DO Attending Provider Active Start: January 04, 2025 End: January 06, 2025 Team Status: Active Member Role/Relationship Status Dates Dr. Femi Stoner DO Primary Care Provider Active Start: January 05, 2025 Dr. Ming Galvin MD Emergency Provider Active Sta rt: January 05, 2025 Dr. Soumya Louis MD Admit Provider Active St art: January 05, 2025 Dr. Soumya Louis MD Other Provider Active St art: January 05, 2025 Dr. Richard Dias DO Attending Provider Active Start: January 05, 2025 Dr. Richard Dias DO Other Provider Active Start: January 05, 2025 Team Status: Active Member Role/Relationship Status Dates Dr. Femi Stoner DO Primary Care Provider Active Start: January 06, 2025 Dr. Ming Galvin MD Emergency Provider Active Sta rt: January 06, 2025 Dr. Soumya Louis MD Admit Provider Active St art: January 06, 2025 Dr. Soumya Louis MD Other Provider Active St art: January 06, 2025 Dr. Richard Dias DO Attending Provider Active Start: January 06, 2025 Dr. Richard Dias DO Other Provider Active Start: January 06, 2025 Team Status: Inactive Member Role/Relationship Status Dates Dr. Femi Stoner DO Primary Care Provider Active Start: January 11, 2025 End: January 11, 2025 Dr. Femi Stoner DO Referring Provider Active Start: January 11, 2025 End: January 11, 2025 Sis Dodie ENGINEER INTERNSHIP, ENGINEER INTERNSHIP-C Attending Provider Active Start: January 11, 2025 End: January 11, 2025 Team Status: Inactive Member Role/Relationship Status Dates Dr. Femi Stoner DO Primary Care Provider Active Start: January 18, 2025 End: January 18, 2025 Dr. Femi Stoner DO Referring Provider Active Start: January 18, 2025 End: January 18, 2025 Sis Dodie ENGINEER INTERNSHIP, ENGINEER INTERNSHIP-C Attending Provider Active Start: January 18, 2025 End: January 18, 2025 Team Status: Inactive Member Role/Relationship Status Dates Dr. Femi Stoner DO Primary Care Provider Active Start: January 18, 2025 End: January 18, 2025 Sis Dodie ENGINEER INTERNSHIP, ENGINEER INTERNSHIP-C Attending Provider Active Start: January 18, 2025 End: January 18, 2025 Sis Dodie ENGINEER INTERNSHIP, ENGINEER INTERNSHIP-C Referring Provider Active Start: January 18, 2025 End: January 18, 2025 Team Status: Inactive Member Role/Relationship Status Dates Dr. Femi Stoner DO Primary Care Provider Active Start: January 25, 2025 End: January 25, 2025 Dr. Femi Stoner DO Referring Provider Active Start: January 25, 2025 End: January 25, 2025 Sis Dodie ENGINEER INTERNSHIP, ENGINEER INTERNSHIP-C Attending Provider Active Start: January 25, 2025 End: January 25, 2025 Team Status: Inactive Member Role/Relationship Status Dates Dr. Femi Stoner DO Primary Care Provider Active Start: February 01, 2025 End: February 01, 2025 Dr. Femi Stoner DO Referring Provider Active Start: February 01, 2025 End: February 01, 2025 Dr. Ruth Acuna MD Attending Provider Active Start: February 01, 2025 End: February 01, 2025 Team Status: Inactive Member Role/Relationship Status Dates Dr. Femi Stoner DO Primary Care Provider Active Start: February 08, 2025 End: February 08, 2025 Dr. Femi Stoner DO Referring Provider Active Start: February 08, 2025 End: February 08, 2025 Sisphillip AguilarDodie ENGINEER INTERNSHIP, ENGINEER INTERNSHIP-C Attending Provider Active Start: February 08, 2025 End: February 08, 2025 Team Status: Inactive Member Role/Relationship Status Dates Dr. Femi Stoner DO Primary Care Provider Active Start: February 15, 2025 End: February 15, 2025 Dr. Femi Stoner DO Referring Provider Active Start: February 15, 2025 End: February 15, 2025 Sisphillip AguilarDodie ENGINEER INTERNSHIP, ENGINEER INTERNSHIP-C Attending Provider Active Start: February 15, 2025 End: February 15, 2025 Team Status: Inactive Member Role/Relationship Status Dates Dr. Femi Stoner DO Primary Care Provider Active Start: February 22, 2025 End: February 22, 2025 Dr. Femi Stoner DO Referring Provider Active Start: February 22, 2025 End: February 22, 2025 Dr. Ruth Acuna MD Attending Provider Active Start: February 22, 2025 End: February 22, 2025 Team Status: Inactive Member Role/Relationship Status Dates Dr. Femi Stoner DO Primary Care Provider Active Start: March 01, 2025 End: March 01, 2025 Dr. Femi Stoner DO Referring Provider Active Start: March 01, 2025 End: March 01, 2025 Sis Stoll ENGINEER INTERNSHIP, ENGINEER INTERNSHIP-C Attending Provider Active Start: March 01, 2025 End: March 01, 2025 Team Status: Inactive Member Role/Relationship Status Dates Dr. Femi Stoner DO Primary Care Provider Active Start: March 08, 2025 End: March 08, 2025 Dr. Femi Stoner DO Referring Provider Active Start: March 08, 2025 End: March 08, 2025 Dr. Ruth Acuna MD Attending Provider Active Start: March 08, 2025 End: March 08, 2025 Team Status: Active Member Role/Relationship Status Dates Dr. Femi Stoner DO Primary Care Provider Active Start: March 08, 2025 Dr. Ruth Acuna MD Referring Provider Active Start: March 08, 2025 Sisphillip Stoll ENGINEER INTERNSHIP, ENGINEER INTERNSHIP-C Attending Provider Active Start: March 08, 2025 Team Status: Inactive Member Role/Relationship Status Dates Dr. Femi Stoner DO Primary Care Provider Active Start: March 09, 2025 End: March 09, 2025 Dr. Heather Austin MD Attending Provider Active Start: March 09, 2025 End: March 09, 2025 Dr. Heather Austin MD Referring Provider Active Start: March 09, 2025 End: March 09, 2025 Outpatient Dietitian Relationship Specialty Start Date End Date Femi Stoner DO [address] [facility] [address] [place] [phone] PCP - General Family Medicine 12/21/24 Ruth Acuna MB [facility] [address] [place] [address] Oncologist Medical Oncology 12/21/24 Hannah Braxton, SYDNEE Registered Nurse 12/21/24 Renny Hernandez Jr., MD, PhD [address] [facility] [address] [place] [id number] Hematology 12/23/24 Team Status: Inactive Member Role/Relationship Status Dates Dr. Femi Stoner DO Primary Care Provider Active Start: March 09, 2025 End: March 09, 2025 Dr. Heather Austin MD Attending Provider Active Start: March 09, 2025 End: March 09, 2025 Dr. Heather Austin MD Referring Provider Active Start: March 09, 2025 End: March 09, 2025 Team Status: Inactive Member Role/Relationship Status Dates Dr. Femi Stoner DO Primary Care Provider Active Start: March 15, 2025 End: March 15, 2025 Dr. Femi Stoner DO Referring Provider Active Start: March 15, 2025 End: March 15, 2025 Dr. Ruth Acuna MD Attending Provider Active Start: March 15, 2025 End: March 15, 2025 Team Status: Active Member Role/Relationship Status Dates Dr. Femi Stoner DO Primary Care Provider Active Start: March 15, 2025 Dr. Ruth Acuna MD Referring Provider Active Start: March 15, 2025 Sis Stoll ENGINEER INTERNSHIP, ENGINEER INTERNSHIP-C Attending Provider Active Start: March 15, 2025 Team Status: Inactive Member Role/Relationship Status Dates Dr. Femi Stoner DO Primary Care Provider Active Start: March 29, 2025 End: March 29, 2025 Dr. Femi Stoner DO Referring Provider Active Start: March 29, 2025 End: March 29, 2025 Sis Stoll ENGINEER INTERNSHIP, ENGINEER INTERNSHIP-C Attending Provider Active Start: March 29, 2025 End: March 29, 2025 Team Status: Active Member Role/Relationship Status Dates Dr. Femi Stoner DO Primary Care Provider Active Start: March 29, 2025 Dr. Ruth Acuna MD Referring Provider Active Start: March 29, 2025 Sis Stoll ENGINEER INTERNSHIP, ENGINEER INTERNSHIP-C Attending Provider Active Start: March 29, 2025 Team Status: Inactive Member Role/Relationship Status Dates Dr. Femi Stoner DO Primary Care Provider Active Start: December 13, 2024 End: December 13, 2024 Dr. Ruth Acuna MD Attending Provider Active Start: December 13, 2024 End: December 13, 2024 Dr. Ruth Acuna MD Referring Provider Active Start: December 13, 2024 End: December 13, 2024 Team Status: Inactive Member Role/Relationship Status Dates Dr. Femi Stoner DO Primary Care Provider Active Start: December 20, 2024 End: December 20, 2024 Dr. Femi Stoner DO Referring Provider Active Start: December 20, 2024 End: December 20, 2024 Dr. Ruth Acuna MD Attending Provider Active Start: December 20, 2024 End: December 20, 2024 Team Status: Inactive Member Role/Relationship Status Dates Dr. Femi Stoner DO Primary Care Provider Active Start: December 22, 2024 End: December 22, 2024 Dr. Femi Stoner DO Referring Provider Active Start: December 22, 2024 End: December 22, 2024 Sis Stoll ENGINEER INTERNSHIP, ENGINEER INTERNSHIP-C Attending Provider Active Start: December 22, 2024 End: December 22, 2024 Team Status: Inactive Member Role/Relationship Status Dates Dr. Femi Stoner DO Primary Care Provider Active Start: January 04, 2025 End: January 04, 2025 Dr. Femi Stoner DO Referring Provider Active Start: January 04, 2025 End: January 04, 2025 Dr. Ruth Acuna MD Attending Provider Active Start: January 04, 2025 End: January 04, 2025 Team Status: Inactive Member Role/Relationship Status Dates Dr. Femi Stoner DO Primary Care Provider Active Start: January 04, 2025 End: January 06, 2025 Dr. Ming Galvin MD Emergency Provider Active Sta rt: January 04, 2025 End: January 06, 2025 Dr. Soumya Louis MD Admit Provider Active St art: January 04, 2025 End: January 06, 2025 Dr. Soumya Louis MD Other Provider Active St art: January 04, 2025 End: January 06, 2025 Dr. Richard Dias DO Attending Provider Active Start: January 04, 2025 End: January 06, 2025 Team Status: Active Member Role/Relationship Status Dates Dr. Femi Stoner DO Primary Care Provider Active Start: January 05, 2025 Dr. Ming Galvin MD Emergency Provider Active Sta rt: January 05, 2025 Dr. Soumya Louis MD Admit Provider Active St art: January 05, 2025 Dr. Soumya Louis MD Other Provider Active St art: January 05, 2025 Dr. Richard Dias DO Attending Provider Active Start: January 05, 2025 Dr. Richard Dias DO Other Provider Active Start: January 05, 2025 Team Status: Active Member Role/Relationship Status Dates Dr. Femi Stoner DO Primary Care Provider Active Start: January 06, 2025 Dr. Ming Galvin MD Emergency Provider Active Sta rt: January 06, 2025 Dr. Soumya Louis MD Admit Provider Active St art: January 06, 2025 Dr. Soumya Louis MD Other Provider Active St art: January 06, 2025 Dr. Richard Dias DO Attending Provider Active Start: January 06, 2025 Dr. Richard Dias DO Other Provider Active Start: January 06, 2025 Team Status: Inactive Member Role/Relationship Status Dates Dr. Femi Stoner DO Primary Care Provider Active Start: January 11, 2025 End: January 11, 2025 Dr. Femi Stoner DO Referring Provider Active Start: January 11, 2025 End: January 11, 2025 Sis Stoll ENGINEER INTERNSHIP, ENGINEER INTERNSHIP-C Attending Provider Active Start: January 11, 2025 End: January 11, 2025 Team Status: Inactive Member Role/Relationship Status Dates Dr. Femi Stoner DO Primary Care Provider Active Start: January 18, 2025 End: January 18, 2025 Dr. Femi Stoner DO Referring Provider Active Start: January 18, 2025 End: January 18, 2025 Sis Stoll ENGINEER INTERNSHIP, ENGINEER INTERNSHIP-C Attending Provider Active Start: January 18, 2025 End: January 18, 2025 Team Status: Inactive Member Role/Relationship Status Dates Dr. Femi Stoner DO Primary Care Provider Active Start: January 18, 2025 End: January 18, 2025 Sis Stoll ENGINEER INTERNSHIP, ENGINEER INTERNSHIP-C Attending Provider Active Start: January 18, 2025 End: January 18, 2025 Sis Stoll ENGINEER INTERNSHIP, ENGINEER INTERNSHIP-C Referring Provider Active Start: January 18, 2025 End: January 18, 2025 Team Status: Inactive Member Role/Relationship Status Dates Dr. Femi Stoner DO Primary Care Provider Active Start: January 25, 2025 End: January 25, 2025 Dr. Femi Stoner DO Referring Provider Active Start: January 25, 2025 End: January 25, 2025 Sis Stoll ENGINEER INTERNSHIP, ENGINEER INTERNSHIP-C Attending Provider Active Start: January 25, 2025 End: January 25, 2025 Team Status: Inactive Member Role/Relationship Status Dates Dr. Femi Stoner DO Primary Care Provider Active Start: February 01, 2025 End: February 01, 2025 Dr. Femi Stoner DO Referring Provider Active Start: February 01, 2025 End: February 01, 2025 Dr. Ruth Acuna MD Attending Provider Active Start: February 01, 2025 End: February 01, 2025 Team Status: Inactive Member Role/Relationship Status Dates Dr. Femi Stoner DO Primary Care Provider Active Start: February 08, 2025 End: February 08, 2025 Dr. Femi Stoner DO Referring Provider Active Start: February 08, 2025 End: February 08, 2025 Sis Stoll ENGINEER INTERNSHIP, ENGINEER INTERNSHIP-C Attending Provider Active Start: February 08, 2025 End: February 08, 2025 Team Status: Inactive Member Role/Relationship Status Dates Dr. Femi Stoner DO Primary Care Provider Active Start: February 15, 2025 End: February 15, 2025 Dr. Femi Stoner DO Referring Provider Active Start: February 15, 2025 End: February 15, 2025 Sis Stoll ENGINEER INTERNSHIP, ENGINEER INTERNSHIP-C Attending Provider Active Start: February 15, 2025 End: February 15, 2025 Team Status: Inactive Member Role/Relationship Status Dates Dr. Femi Stoner DO Primary Care Provider Active Start: February 22, 2025 End: February 22, 2025 Dr. Femi Stoner DO Referring Provider Active Start: February 22, 2025 End: February 22, 2025 Dr. Ruth Acuna MD Attending Provider Active Start: February 22, 2025 End: February 22, 2025 Team Status: Inactive Member Role/Relationship Status Dates Dr. Femi Stoner DO Primary Care Provider Active Start: March 01, 2025 End: March 01, 2025 Dr. Femi Stoner DO Referring Provider Active Start: March 01, 2025 End: March 01, 2025 Sis Stoll ENGINEER INTERNSHIP, ENGINEER INTERNSHIP-C Attending Provider Active Start: March 01, 2025 End: March 01, 2025 Team Status: Inactive Member Role/Relationship Status Dates Dr. Femi Stoner DO Primary Care Provider Active Start: March 08, 2025 End: March 08, 2025 Dr. Femi Stoner DO Referring Provider Active Start: March 08, 2025 End: March 08, 2025 Dr. Ruth Acuna MD Attending Provider Active Start: March 08, 2025 End: March 08, 2025 Team Status: Inactive Member Role/Relationship Status Dates Dr. Femi Stoner DO Primary Care Provider Active Start: March 09, 2025 End: March 09, 2025 Dr. Heather Austin MD Attending Provider Active Start: March 09, 2025 End: March 09, 2025 Dr. Heather Austin MD Referring Provider Active Start: March 09, 2025 End: March 09, 2025 Team Status: Inactive Member Role/Relationship Status Dates Dr. Femi Stoner DO Primary Care Provider Active Start: March 15, 2025 End: March 15, 2025 Dr. Femi Stoner DO Referring Provider Active Start: March 15, 2025 End: March 15, 2025 Dr. Ruth Acuna MD Attending Provider Active Start: March 15, 2025 End: March 15, 2025 Team Status: Inactive Member Role/Relationship Status Dates Dr. Femi Stoner DO Primary Care Provider Active Start: March 29, 2025 End: March 29, 2025 Dr. Femi Stoner DO Referring Provider Active Start: March 29, 2025 End: March 29, 2025 Sisphillip Stoll ENGINEER INTERNSHIP, ENGINEER INTERNSHIP-C Attending Provider Active Start: March 29, 2025 End: March 29, 2025 Team Status: Active Member Role/Relationship Status Dates Dr. Femi Stoner DO Primary Care Provider Active Start: April 12, 2025 Dr. Ruth Acuna MD Referring Provider Active Start: April 12, 2025 Sisphillip Stoll ENGINEER INTERNSHIP, ENGINEER INTERNSHIP-C Attending Provider Active Start: April 12, 2025 Team Status: Inactive Member Role/Relationship Status Dates Dr. Femi Stoner DO Primary Care Provider Active Start: April 12, 2025 End: April 12, 2025 Dr. Femi Stoner DO Referring Provider Active Start: April 12, 2025 End: April 12, 2025 Sisphillip TerryDodie ENGINEER INTERNSHIP, ENGINEER INTERNSHIP-C Attending Provider Active Start: April 12, 2025 End: April 12, 2025 Team Status: Inactive Member Role/Relationship Status Dates Dr. Femi Stoner DO Primary Care Provider Active Start: January 04, 2025 End: January 04, 2025 Dr. Femi Stoner DO Referring Provider Active Start: January 04, 2025 End: January 04, 2025 Dr. Ruth Acuna MD Attending Provider Active Start: January 04, 2025 End: January 04, 2025 Team Status: Inactive Member Role/Relationship Status Dates Dr. Femi Stoner DO Primary Care Provider Active Start: January 04, 2025 End: January 06, 2025 Dr. Ming Galvin MD Emergency Provider Active Sta rt: January 04, 2025 End: January 06, 2025 Dr. Soumya Louis MD Admit Provider Active St art: January 04, 2025 End: January 06, 2025 Dr. Soumya Louis MD Other Provider Active St art: January 04, 2025 End: January 06, 2025 Dr. Richard Dias DO Attending Provider Active Start: January 04, 2025 End: January 06, 2025 Team Status: Active Member Role/Relationship Status Dates Dr. Femi Stoner DO Primary Care Provider Active Start: January 05, 2025 Dr. Ming Galvin MD Emergency Provider Active Sta rt: January 05, 2025 Dr. Soumya Louis MD Admit Provider Active St art: January 05, 2025 Dr. Soumya Louis MD Other Provider Active St art: January 05, 2025 Dr. Richard Dias DO Attending Provider Active Start: January 05, 2025 Dr. Richard Dias DO Other Provider Active Start: January 05, 2025 Team Status: Active Member Role/Relationship Status Dates Dr. Femi Stoner DO Primary Care Provider Active Start: January 06, 2025 Dr. Ming Galvin MD Emergency Provider Active Sta rt: January 06, 2025 Dr. Soumya Louis MD Admit Provider Active St art: January 06, 2025 Dr. Soumya Louis MD Other Provider Active St art: January 06, 2025 Dr. Richard Dias DO Attending Provider Active Start: January 06, 2025 Dr. Richard Dias DO Other Provider Active Start: January 06, 2025 Team Status: Inactive Member Role/Relationship Status Dates Dr. Femi Stoner DO Primary Care Provider Active Start: January 11, 2025 End: January 11, 2025 Dr. Femi Stoner DO Referring Provider Active Start: January 11, 2025 End: January 11, 2025 Sis Stoll [employer] INTERNS[employer]IP, ENG[employer]ER [employer]NS[employer]-C Attending Provider Active Start: January 11, 2025 End: January 11, 2025 Team Status: Inactive Member Role/Relationship Status Dates Dr. Femi Stoner DO Primary Care Provider Active Start: January 18, 2025 End: January 18, 2025 Dr. Femi Stoner DO Referring Provider Active Start: January 18, 2025 End: January 18, 2025 Sis Stoll [employer]NS[employer]IP, ENGINEER [employer]NS[employer]-C Attending Provider Active Start: January 18, 2025 End: January 18, 2025 Team Status: Inactive Member Role/Relationship Status Dates Dr. Femi Stoner DO Primary Care Provider Active Start: January 18, 2025 End: January 18, 2025 Sis Stoll [employer]ER [employer]NSHIP, ENGINEER INTERNSHIP-C Attending Provider Active Start: January 18, 2025 End: January 18, 2025 Sis Stoll ENG[employer]ER INTERNSHIP, ENGINEER [employer]NSHIP-C Referring Provider Active Start: January 18, 2025 End: January 18, 2025 Team Status: Inactive Member Role/Relationship Status Dates Dr. Femi Stoner DO Primary Care Provider Active Start: January 25, 2025 End: January 25, 2025 Dr. Femi Stoner DO Referring Provider Active Start: January 25, 2025 End: January 25, 2025 Sis Stoll ENG[employer]NSHIP, ENGINEER INTERNSHIP-C Attending Provider Active Start: January 25, 2025 End: January 25, 2025 Team Status: Inactive Member Role/Relationship Status Dates Dr. Femi Stoner DO Primary Care Provider Active Start: February 01, 2025 End: February 01, 2025 Dr. Femi Stoner DO Referring Provider Active Start: February 01, 2025 End: February 01, 2025 Dr. Ruth Acuna MD Attending Provider Active Start: February 01, 2025 End: February 01, 2025 Team Status: Inactive Member Role/Relationship Status Dates Dr. Femi Stoner DO Primary Care Provider Active Start: February 08, 2025 End: February 08, 2025 Dr. Femi Stoner DO Referring Provider Active Start: February 08, 2025 End: February 08, 2025 Sis Stoll ENG[employer]ER INTERNSHIP, ENGINEER INTERNSHIP-C Attending Provider Active Start: February 08, 2025 End: February 08, 2025 Team Status: Inactive Member Role/Relationship Status Dates Dr. Femi Stoner DO Primary Care Provider Active Start: February 15, 2025 End: February 15, 2025 Dr. Femi Stoner DO Referring Provider Active Start: February 15, 2025 End: February 15, 2025 Sis Stoll [employer]NSHIP, ENGINEER INTERNSHIP-C Attending Provider Active Start: February 15, 2025 End: February 15, 2025 Team Status: Inactive Member Role/Relationship Status Dates Dr. Femi Stoner DO Primary Care Provider Active Start: February 22, 2025 End: February 22, 2025 Dr. Femi Stoner DO Referring Provider Active Start: February 22, 2025 End: February 22, 2025 Dr. Ruth Acuna MD Attending Provider Active Start: February 22, 2025 End: February 22, 2025 Team Status: Inactive Member Role/Relationship Status Dates Dr. Femi Stoner DO Primary Care Provider Active Start: March 01, 2025 End: March 01, 2025 Dr. Femi Stoner DO Referring Provider Active Start: March 01, 2025 End: March 01, 2025 Sis Stoll ENG[employer]ER INTERNSHIP, ENGINEER INTERNSHIP-C Attending Provider Active Start: March 01, 2025 End: March 01, 2025 Team Status: Inactive Member Role/Relationship Status Dates Dr. Femi Stoner DO Primary Care Provider Active Start: March 08, 2025 End: March 08, 2025 Dr. Femi Stoner DO Referring Provider Active Start: March 08, 2025 End: March 08, 2025 Dr. Ruth Acuna MD Attending Provider Active Start: March 08, 2025 End: March 08, 2025 Team Status: Inactive Member Role/Relationship Status Dates Dr. Femi Stoner DO Primary Care Provider Active Start: March 09, 2025 End: March 09, 2025 Dr. Haether Austin MD Attending Provider Active Start: March 09, 2025 End: March 09, 2025 Dr. Heather Austin MD Referring Provider Active Start: March 09, 2025 End: March 09, 2025 Team Status: Inactive Member Role/Relationship Status Dates Dr. Femi Stoner DO Primary Care Provider Active Start: March 15, 2025 End: March 15, 2025 Dr. Femi Stoner DO Referring Provider Active Start: March 15, 2025 End: March 15, 2025 Dr. Ruth Acuna MD Attending Provider Active Start: March 15, 2025 End: March 15, 2025 Team Status: Inactive Member Role/Relationship Status Dates Dr. Femi Stoner DO Primary Care Provider Active Start: March 29, 2025 End: March 29, 2025 Dr. Femi Stoner DO Referring Provider Active Start: March 29, 2025 End: March 29, 2025 Sis Stoll ENGINEER INTERNSHIP, ENGINEER INTERNSHIP-C Attending Provider Active Start: March 29, 2025 End: March 29, 2025 Team Status: Inactive Member Role/Relationship Status Dates Dr. Femi Stoner DO Primary Care Provider Active Start: April 12, 2025 End: April 12, 2025 Dr. Femi Stoner DO Referring Provider Active Start: April 12, 2025 End: April 12, 2025 Sis Stoll ENG[employer]ER INTERNSHIP, ENGINEER INTERNSHIP-C Attending Provider Active Start: April 12, 2025 End: April 12, 2025 Team Status: Inactive Member Role/Relationship Status Dates Dr. Femi Stoner DO Primary Care Provider Active Start: April 26, 2025 End: April 26, 2025 Dr. Femi Stoner DO Referring Provider Active Start: April 26, 2025 End: April 26, 2025 Sisphillip AguilarDodie ENGINEER INTERNSHIP, ENGINEER INTERNSHIP-C Attending Provider Active Start: April 26, 2025 End: April 26, 2025 Team Status: Active Member Role/Relationship Status Dates Dr. Femi Stoner DO Primary Care Provider Active Start: April 26, 2025 Dr. Ruth Acuna MD Referring Provider Active Start: April 26, 2025 Sisphillip Stoll ENGINEER INTERNSHIP, ENGINEER INTERNSHIP-C Attending Provider Active Start: April 26, 2025 Team Status: Inactive Member Role/Relationship Status Dates Dr. Femi Stoner DO Primary Care Provider Active Start: January 11, 2025 End: January 11, 2025 Dr. Femi Stoner DO Referring Provider Active Start: January 11, 2025 End: January 11, 2025 Sisphillip AguilarDodie ENGINEER INTERNSHIP, ENGINEER INTERNSHIP-C Attending Provider Active Start: January 11, 2025 End: January 11, 2025 Team Status: Inactive Member Role/Relationship Status Dates Dr. Femi Stoner DO Primary Care Provider Active Start: January 18, 2025 End: January 18, 2025 Dr. Femi Stoner DO Referring Provider Active Start: January 18, 2025 End: January 18, 2025 Sisphillip AugilarDodie ENGINEER INTERNSHIP, ENGINEER INTERNSHIP-C Attending Provider Active Start: January 18, 2025 End: January 18, 2025 Team Status: Inactive Member Role/Relationship Status Dates Dr. Femi Stoner DO Primary Care Provider Active Start: January 18, 2025 End: January 18, 2025 Sis Dodie ENGINEER INTERNSHIP, ENGINEER INTERNSHIP-C Attending Provider Active Start: January 18, 2025 End: January 18, 2025 Sisphillip AguilarDodie ENGINEER INTERNSHIP, ENGINEER INTERNSHIP-C Referring Provider Active Start: January 18, 2025 End: January 18, 2025 Team Status: Inactive Member Role/Relationship Status Dates Dr. Femi Stoner DO Primary Care Provider Active Start: January 25, 2025 End: January 25, 2025 Dr. Femi Stoner DO Referring Provider Active Start: January 25, 2025 End: January 25, 2025 Sis Stoll ENGINEER INTERNSHIP, ENGINEER INTERNSHIP-C Attending Provider Active Start: January 25, 2025 End: January 25, 2025 Team Status: Inactive Member Role/Relationship Status Dates Dr. Femi Stoner DO Primary Care Provider Active Start: February 01, 2025 End: February 01, 2025 Dr. Femi Stoner DO Referring Provider Active Start: February 01, 2025 End: February 01, 2025 Dr. Ruth Acuna MD Attending Provider Active Start: February 01, 2025 End: February 01, 2025 Team Status: Inactive Member Role/Relationship Status Dates Dr. Femi Stoner DO Primary Care Provider Active Start: February 08, 2025 End: February 08, 2025 Dr. Femi Stoner DO Referring Provider Active Start: February 08, 2025 End: February 08, 2025 Sis Stoll ENGINEER INTERNSHIP, ENGINEER INTERNSHIP-C Attending Provider Active Start: February 08, 2025 End: February 08, 2025 Team Status: Inactive Member Role/Relationship Status Dates Dr. Femi Stoner DO Primary Care Provider Active Start: February 15, 2025 End: February 15, 2025 Dr. Femi Stoner DO Referring Provider Active Start: February 15, 2025 End: February 15, 2025 Sis Stoll ENGINEER INTERNSHIP, ENGINEER INTERNSHIP-C Attending Provider Active Start: February 15, 2025 End: February 15, 2025 Team Status: Inactive Member Role/Relationship Status Dates Dr. Femi Stoner DO Primary Care Provider Active Start: February 22, 2025 End: February 22, 2025 Dr. Femi Stoner DO Referring Provider Active Start: February 22, 2025 End: February 22, 2025 Dr. Ruth Acuna MD Attending Provider Active Start: February 22, 2025 End: February 22, 2025 Team Status: Inactive Member Role/Relationship Status Dates Dr. Femi Stoner DO Primary Care Provider Active Start: March 01, 2025 End: March 01, 2025 Dr. Femi Stoner DO Referring Provider Active Start: March 01, 2025 End: March 01, 2025 Sis Stoll ENGINEER INTERNSHIP, ENGINEER INTERNSHIP-C Attending Provider Active Start: March 01, 2025 End: March 01, 2025 Team Status: Inactive Member Role/Relationship Status Dates Dr. Femi Stoner DO Primary Care Provider Active Start: March 08, 2025 End: March 08, 2025 Dr. Femi Stoner DO Referring Provider Active Start: March 08, 2025 End: March 08, 2025 Dr. Ruth Acuna MD Attending Provider Active Start: March 08, 2025 End: March 08, 2025 Team Status: Inactive Member Role/Relationship Status Dates Dr. Femi Stoner DO Primary Care Provider Active Start: March 09, 2025 End: March 09, 2025 Dr. Heather Austin MD Attending Provider Active Start: March 09, 2025 End: March 09, 2025 Dr. Heather Austin MD Referring Provider Active Start: March 09, 2025 End: March 09, 2025 Team Status: Inactive Member Role/Relationship Status Dates Dr. Femi Stoner DO Primary Care Provider Active Start: March 15, 2025 End: March 15, 2025 Dr. Femi Stoner DO Referring Provider Active Start: March 15, 2025 End: March 15, 2025 Dr. Ruth Acuna MD Attending Provider Active Start: March 15, 2025 End: March 15, 2025 Team Status: Inactive Member Role/Relationship Status Dates Dr. Femi Stoner DO Primary Care Provider Active Start: March 29, 2025 End: March 29, 2025 Dr. Femi Stoner DO Referring Provider Active Start: March 29, 2025 End: March 29, 2025 Sis Stoll ENGINEER INTERNSHIP, ENGINEER INTERNSHIP-C Attending Provider Active Start: March 29, 2025 End: March 29, 2025 Team Status: Inactive Member Role/Relationship Status Dates Dr. Femi Stoner DO Primary Care Provider Active Start: April 12, 2025 End: April 12, 2025 Dr. Femi Stoner DO Referring Provider Active Start: April 12, 2025 End: April 12, 2025 Sisphillip Stoll ENGINEER INTERNSHIP, ENGINEER INTERNSHIP-C Attending Provider Active Start: April 12, 2025 End: April 12, 2025 Team Status: Inactive Member Role/Relationship Status Dates Dr. Femi Stoner DO Primary Care Provider Active Start: April 26, 2025 End: April 26, 2025 Dr. Femi Stoner DO Referring Provider Active Start: April 26, 2025 End: April 26, 2025 Sis Stoll ENGINEER INTERNSHIP, ENGINEER INTERNSHIP-C Attending Provider Active Start: April 26, 2025 End: April 26, 2025 Team Status: Inactive Member Role/Relationship Status Dates Dr. Femi Stoner DO Primary Care Provider Active Start: May 10, 2025 End: May 10, 2025 Dr. Femi Stoner DO Referring Provider Active Start: May 10, 2025 End: May 10, 2025 Dr. Ruth Acuna MD Attending Provider Active Start: May 10, 2025 End: May 10, 2025 Team Status: Active Member Role/Relationship Status Dates Dr. Femi Stoner DO Primary Care Provider Active Start: May 10, 2025 Dr. Ruth Acuna MD Referring Provider Active Start: May 10, 2025 Sis Stoll ENGINEER INTERNSHIP, ENGINEER INTERNSHIP-C Attending Provider Active Start: May 10, 2025 Team Status: Inactive Member Role/Relationship Status Dates Dr. Femi Stoner DO Primary Care Provider Active Start: January 25, 2025 End: January 25, 2025 Dr. Femi Stoner DO Referring Provider Active Start: January 25, 2025 End: January 25, 2025 Sis Stoll ENGINEER INTERNSHIP, ENGINEER INTERNSHIP-C Attending Provider Active Start: January 25, 2025 End: January 25, 2025 Team Status: Inactive Member Role/Relationship Status Dates Dr. Femi Stoner DO Primary Care Provider Active Start: February 01, 2025 End: February 01, 2025 Dr. Femi Stoner DO Referring Provider Active Start: February 01, 2025 End: February 01, 2025 Dr. Ruth Acuna MD Attending Provider Active Start: February 01, 2025 End: February 01, 2025 Team Status: Inactive Member Role/Relationship Status Dates Dr. Femi Stoner DO Primary Care Provider Active Start: February 08, 2025 End: February 08, 2025 Dr. Femi Stoner DO Referring Provider Active Start: February 08, 2025 End: February 08, 2025 Sis Stoll ENGINEER INTERNSHIP, ENGINEER INTERNSHIP-C Attending Provider Active Start: February 08, 2025 End: February 08, 2025 Team Status: Inactive Member Role/Relationship Status Dates Dr. Femi Stoner DO Primary Care Provider Active Start: February 15, 2025 End: February 15, 2025 Dr. Femi Stoner DO Referring Provider Active Start: February 15, 2025 End: February 15, 2025 Sis Stoll ENGINEER INTERNSHIP, ENGINEER INTERNSHIP-C Attending Provider Active Start: February 15, 2025 End: February 15, 2025 Team Status: Inactive Member Role/Relationship Status Dates Dr. Femi Stoner DO Primary Care Provider Active Start: February 22, 2025 End: February 22, 2025 Dr. Femi Stoner DO Referring Provider Active Start: February 22, 2025 End: February 22, 2025 Dr. Ruth Acuna MD Attending Provider Active Start: February 22, 2025 End: February 22, 2025 Team Status: Inactive Member Role/Relationship Status Dates Dr. Femi Stoner DO Primary Care Provider Active Start: March 01, 2025 End: March 01, 2025 Dr. Femi Stoner DO Referring Provider Active Start: March 01, 2025 End: March 01, 2025 Sis Stoll ENGINEER INTERNSHIP, ENGINEER INTERNSHIP-C Attending Provider Active Start: March 01, 2025 End: March 01, 2025 Team Status: Inactive Member Role/Relationship Status Dates Dr. Femi Stoner DO Primary Care Provider Active Start: March 08, 2025 End: March 08, 2025 Dr. Femi Stoner DO Referring Provider Active Start: March 08, 2025 End: March 08, 2025 Dr. Ruth Acuna MD Attending Provider Active Start: March 08, 2025 End: March 08, 2025 Team Status: Inactive Member Role/Relationship Status Dates Dr. Femi Stoner DO Primary Care Provider Active Start: March 09, 2025 End: March 09, 2025 Dr. Heather Austin MD Attending Provider Active Start: March 09, 2025 End: March 09, 2025 Dr. Heather Austin MD Referring Provider Active Start: March 09, 2025 End: March 09, 2025 Team Status: Inactive Member Role/Relationship Status Dates Dr. Femi Stoner DO Primary Care Provider Active Start: March 15, 2025 End: March 15, 2025 Dr. Femi Stoner DO Referring Provider Active Start: March 15, 2025 End: March 15, 2025 Dr. Ruth Acuna MD Attending Provider Active Start: March 15, 2025 End: March 15, 2025 Team Status: Inactive Member Role/Relationship Status Dates Dr. Femi Stoner DO Primary Care Provider Active Start: March 29, 2025 End: March 29, 2025 Dr. Femi Stoner DO Referring Provider Active Start: March 29, 2025 End: March 29, 2025 Sis Stoll ENGINEER INTERNSHIP, ENGINEER INTERNSHIP-C Attending Provider Active Start: March 29, 2025 End: March 29, 2025 Team Status: Inactive Member Role/Relationship Status Dates Dr. Femi Stoner DO Primary Care Provider Active Start: April 12, 2025 End: April 12, 2025 Dr. Femi Stoner DO Referring Provider Active Start: April 12, 2025 End: April 12, 2025 Sisphillip AguilarDodie ENGINEER INTERNSHIP, ENGINEER INTERNSHIP-C Attending Provider Active Start: April 12, 2025 End: April 12, 2025 Team Status: Inactive Member Role/Relationship Status Dates Dr. Femi Stoner DO Primary Care Provider Active Start: April 26, 2025 End: April 26, 2025 Dr. Femi Stoner DO Referring Provider Active Start: April 26, 2025 End: April 26, 2025 Sis Stoll ENGINEER INTERNSHIP, ENGINEER INTERNSHIP-C Attending Provider Active Start: April 26, 2025 End: April 26, 2025 Team Status: Inactive Member Role/Relationship Status Dates Dr. Femi Stoner DO Primary Care Provider Active Start: May 10, 2025 End: May 10, 2025 Dr. Femi Stoner DO Referring Provider Active Start: May 10, 2025 End: May 10, 2025 Dr. Ruth Acuna MD Attending Provider Active Start: May 10, 2025 End: May 10, 2025 Team Status: Inactive Member Role/Relationship Status Dates Dr. Femi Stoner DO Primary Care Provider Active Start: May 24, 2025 End: May 24, 2025 Dr. Femi Stoner DO Referring Provider Active Start: May 24, 2025 End: May 24, 2025 Dr. Ruth Acuna MD Attending Provider Active Start: May 24, 2025 End: May 24, 2025 Team Status: Active Member Role/Relationship Status Dates Dr. Femi Stoner DO Primary Care Provider Active Start: May 24, 2025 Dr. Ruth Acuna MD Referring Provider Active Start: May 24, 2025 Sis Stoll ENGINEER INTERNSHIP, ENGINEER INTERNSHIP-C Attending Provider Active Start: May 24, 2025 Team Status: Active Member Role/Relationship Status Dates Dr. Femi Stoner DO Primary care physician Active Team Status: Inactive Member Role/Relationship Status Dates Dr. Femi Stoner DO Primary care physician Active Start: February 08, 2025 End: February 08, 2025 Dr. Femi Stoner DO Referring Provider Active Start: February 08, 2025 End: February 08, 2025 Sis Terryach ENGINEER INTERNSHIP, ENGINEER INTERNSHIP-C Attending physician Active Start: February 08, 2025 End: February 08, 2025 Team Status: Inactive Member Role/Relationship Status Dates Dr. Femi Stoner DO Primary care physician Active Start: February 15, 2025 End: February 15, 2025 Dr. Femi Stoner DO Referring Provider Active Start: February 15, 2025 End: February 15, 2025 Sis Stoll ENGINEER INTERNSHIP, ENGINEER INTERNSHIP-C Attending physician Active Start: February 15, 2025 End: February 15, 2025 Team Status: Inactive Member Role/Relationship Status Dates Dr. Femi Stoner DO Primary care physician Active Start: February 22, 2025 End: February 22, 2025 Dr. Femi Stoner DO Referring Provider Active Start: February 22, 2025 End: February 22, 2025 Dr. Ruth Acuna MD Attending physician Active Start: February 22, 2025 End: February 22, 2025 Team Status: Inactive Member Role/Relationship Status Dates Dr. Femi Stoner DO Primary care physician Active Start: March 01, 2025 End: March 01, 2025 Dr. Femi Stoner DO Referring Provider Active Start: March 01, 2025 End: March 01, 2025 Sis Stoll ENGINEER INTERNSHIP, ENGINEER INTERNSHIP-C Attending physician Active Start: March 01, 2025 End: March 01, 2025 Team Status: Inactive Member Role/Relationship Status Dates Dr. Femi Stoner DO Primary care physician Active Start: March 08, 2025 End: March 08, 2025 Dr. Femi Stoner DO Referring Provider Active Start: March 08, 2025 End: March 08, 2025 Dr. Ruth Acuna MD Attending physician Active Start: March 08, 2025 End: March 08, 2025 Team Status: Inactive Member Role/Relationship Status Dates Dr. Femi Stoner DO Primary care physician Active Start: March 09, 2025 End: March 09, 2025 Dr. Heather Austin MD Attending physician Active Start: March 09, 2025 End: March 09, 2025 Dr. Heather Austin MD Referring Provider Active Start: March 09, 2025 End: March 09, 2025 Team Status: Inactive Member Role/Relationship Status Dates Dr. Femi Stoner DO Primary care physician Active Start: March 15, 2025 End: March 15, 2025 Dr. Femi Stoner DO Referring Provider Active Start: March 15, 2025 End: March 15, 2025 Dr. Ruth Acuna MD Attending physician Active Start: March 15, 2025 End: March 15, 2025 Team Status: Inactive Member Role/Relationship Status Dates Dr. Femi Stoner DO Primary care physician Active Start: March 29, 2025 End: March 29, 2025 Dr. Femi Stoner DO Referring Provider Active Start: March 29, 2025 End: March 29, 2025 Sis Stoll ENGINEER INTERNSHIP, ENGINEER INTERNSHIP-C Attending physician Active Start: March 29, 2025 End: March 29, 2025 Team Status: Inactive Member Role/Relationship Status Dates Dr. Femi Stoner DO Primary care physician Active Start: April 12, 2025 End: April 12, 2025 Dr. Femi Stoner DO Referring Provider Active Start: April 12, 2025 End: April 12, 2025 Sis Terryach ENGINEER INTERNSHIP, ENGINEER INTERNSHIP-C Attending physician Active Start: April 12, 2025 End: April 12, 2025 Team Status: Inactive Member Role/Relationship Status Dates Dr. Femi Stoner DO Primary care physician Active Start: April 26, 2025 End: April 26, 2025 Dr. Femi Stoner DO Referring Provider Active Start: April 26, 2025 End: April 26, 2025 Sis Stoll ENGINEER INTERNSHIP, ENGINEER INTERNSHIP-C Attending physician Active Start: April 26, 2025 End: April 26, 2025 Team Status: Inactive Member Role/Relationship Status Dates Dr. Femi Stoner DO Primary care physician Active Start: May 10, 2025 End: May 10, 2025 Dr. Femi Stoner DO Referring Provider Active Start: May 10, 2025 End: May 10, 2025 Dr. Ruth Acuna MD Attending physician Active Start: May 10, 2025 End: May 10, 2025 Team Status: Inactive Member Role/Relationship Status Dates Dr. Femi Stoner DO Primary care physician Active Start: May 24, 2025 End: May 24, 2025 Dr. Femi Stoner DO Referring Provider Active Start: May 24, 2025 End: May 24, 2025 Dr. Ruth Acuna MD Attending physician Active Start: May 24, 2025 End: May 24, 2025 Team Status: Inactive Member Role/Relationship Status Dates Dr. Femi Stoner DO Primary care physician Active Start: June 07, 2025 End: June 07, 2025 Dr. Femi Stoner DO Referring Provider Active Start: June 07, 2025 End: June 07, 2025 Dr. Ruth Acuna MD Attending physician Active Start: June 07, 2025 End: June 07, 2025 Team Status: Active Member Role/Relationship Status Dates Dr. Femi Stoner DO Primary care physician Active Start: June 07, 2025 Dr. Ruth Acuna MD Referring Provider Active Start: June 07, 2025 Sis Stoll ENGINEER INTERNSHIP, ENGINEER INTERNSHIP-C Attending physician Active Start: June 07, 2025 Team Status: Active Member Role/Relationship Status Dates Dr. Femi Stoner DO Primary care physician Active Start: June 08, 2025 Dr. Ruth Acuna MD Attending physician Active Start: June 08, 2025 Dr. Ruth Acuna MD Referring Provider Active Start: June 08, 2025 Team Status: Inactive Member Role/Relationship Status Dates Dr. Femi Stoner DO Primary care physician Active Start: March 08, 2025 End: March 08, 2025 Dr. Femi Stoner DO Referring Provider Active Start: March 08, 2025 End: March 08, 2025 Dr. Ruth Acuna MD Attending physician Active Start: March 08, 2025 End: March 08, 2025 Team Status: Inactive Member Role/Relationship Status Dates Dr. Femi Stoner DO Primary care physician Active Start: March 09, 2025 End: March 09, 2025 Dr. Heather Austin MD Attending physician Active Start: March 09, 2025 End: March 09, 2025 Dr. Heather Austin MD Referring Provider Active Start: March 09, 2025 End: March 09, 2025 Team Status: Inactive Member Role/Relationship Status Dates Dr. Femi Stoner DO Primary care physician Active Start: March 15, 2025 End: March 15, 2025 Dr. Femi Stoner DO Referring Provider Active Start: March 15, 2025 End: March 15, 2025 Dr. Ruth Acuna MD Attending physician Active Start: March 15, 2025 End: March 15, 2025 Team Status: Inactive Member Role/Relationship Status Dates Dr. Femi Stoner DO Primary care physician Active Start: March 29, 2025 End: March 29, 2025 Dr. Femi Stoner DO Referring Provider Active Start: March 29, 2025 End: March 29, 2025 Sis Stoll ENGINEER INTERNSHIP, ENGINEER INTERNSHIP-C Attending physician Active Start: March 29, 2025 End: March 29, 2025 Team Status: Inactive Member Role/Relationship Status Dates Dr. Femi Stoner DO Primary care physician Active Start: April 12, 2025 End: April 12, 2025 Dr. Femi Stoner DO Referring Provider Active Start: April 12, 2025 End: April 12, 2025 Sis Stoll ENGINEER INTERNSHIP, ENGINEER INTERNSHIP-C Attending physician Active Start: April 12, 2025 End: April 12, 2025 Team Status: Inactive Member Role/Relationship Status Dates Dr. Femi Stoner DO Primary care physician Active Start: April 26, 2025 End: April 26, 2025 Dr. Femi Stoner DO Referring Provider Active Start: April 26, 2025 End: April 26, 2025 Sis Stoll ENGINEER INTERNSHIP, ENGINEER INTERNSHIP-C Attending physician Active Start: April 26, 2025 End: April 26, 2025 Team Status: Inactive Member Role/Relationship Status Dates Dr. Femi Stoner DO Primary care physician Active Start: May 10, 2025 End: May 10, 2025 Dr. Femi Stoner DO Referring Provider Active Start: May 10, 2025 End: May 10, 2025 Dr. Ruth Acuna MD Attending physician Active Start: May 10, 2025 End: May 10, 2025 Team Status: Inactive Member Role/Relationship Status Dates Dr. Femi Stoner DO Primary care physician Active Start: May 24, 2025 End: May 24, 2025 Dr. Femi tSoner DO Referring Provider Active Start: May 24, 2025 End: May 24, 2025 Dr. Ruth Acuna MD Attending physician Active Start: May 24, 2025 End: May 24, 2025 Team Status: Inactive Member Role/Relationship Status Dates Dr. Femi Stoner DO Primary care physician Active Start: June 07, 2025 End: June 07, 2025 Dr. Femi Stoner DO Referring Provider Active Start: June 07, 2025 End: June 07, 2025 Dr. Ruth Acuna MD Attending physician Active Start: June 07, 2025 End: June 07, 2025 Team Status: Inactive Member Role/Relationship Status Dates Dr. Femi Stoner DO Primary care physician Active Start: June 21, 2025 End: June 21, 2025 Dr. Femi Stoner DO Referring Provider Active Start: June 21, 2025 End: June 21, 2025 Dr. Ruth Acuna MD Attending physician Active Start: June 21, 2025 End: June 21, 2025 Team Status: Active Member Role/Relationship Status Dates Dr. Femi Stoner DO Primary care physician Active Start: June 21, 2025 Dr. Ruth Acuna MD Referring Provider Active Start: June 21, 2025 [employer] Attending physician Active Start: June 21, 2025 Team Status: Active Member Role/Relationship Status Dates Dr. Femi Stoner DO Primary care physician Active Start: July 01, 2025 Dr. Ruth Acuna MD Attending physician Active Start: July 01, 2025 Dr. Ruth Acuna MD Referring Provider Active Start: July 01, 2025 Outpatient Dietitian Relationship Specialty Start Date End Date Femi Stoner DO [address] [facility] [address] [place] [phone] PCP - General Family Medicine 12/03/22 Goals (unrecognized section and content) Goals may be documented in a n alternate sectionGoals may be documented in an alternate sectionGoals may be documented in an alternate sectionGoals may be documented in an alternate sectionGoals may be documented in an alternate sectionGoals may be documented in an alternate sectionGoals may be documented in an alternate section Scheduled Active and Recently Administ ered Medications (unrecognized section and content) Medication Order 10/10/2024 10/11/2024 10/12/2024 morphine injection 4 mg (COMPLETED) 4 mg, IntraMUSCular, Once, On Tu10/12/24 at 1655, For 1 dose, If oral and injectable narcotics ordered, use oral first and only use injectable if oral is ineffective or cannot take oral. Do Not give oral and injectable within 1 hour of each other unless specifically ordered. 1705 (Given - Provid er: Tasha Day RN) Scheduled Medication Order 10/14/2024 10/15/2024 10/16/2024 enoxaparin (Lovenox) syringe 40 mg 40 mg, SubCUTAneous, Every 24 hours scheduled (Daily), First dose on Nandini 10/14/24 at 1145, Indication of Use: Prophylaxis-DVT/PE, Indications: Prophylaxis of Venous Thromboembolism 1207 (Given - Provider: Emili Walker, SYDNEE) 1001 (Given - Provider: Emili Walker, SYDNEE) 0844 (Given - Provider: Natividad Ortiz RN) gabapentin (Neurontin) capsule 300 mg 300 mg, Oral, Nightly, First dose on Fri10/13/24 at 2099 2014 (Given - Provider: Esthela Paul RN) 2057 (Given - Provider: Esthela Paul, SYDNEE) levothyroxine (Synthroid, Levoxyl) tablet 50 mcg 50 mcg, Oral, Daily, First dose on Fri10/13/24 at 2049, Tube feeding (TF) interaction, obtain physician order to manage, recommend holding TF for 30 minutes before and after dose. 0550 (Given - Provider: Maggie Schrader RN) 0605 (Given - Provider: Esthela Paul RN) 0617 (Given - Provider: Esthela Paul RN) melatonin tablet 3 mg 3 mg, Oral, Nightly, First dose on Fri10/13/24 at 2099 2014 (Given - Provider: Esthela Paul RN) 2057 (Given - Provider: Esthela Beverly, RN) methocarbamol (Robaxin) tablet 500 mg 500 mg, Oral, Every 8 hours scheduled (3 times per day), First dose (after last modification) on Fri10/15/24 at 1015 1129 (Given - Provider: Emili Walker RN)2100 (Given - Provider: Esthela Paul RN) 0845 (Given - Provider: Natividad Ortiz, RN - Comment: Patient unavailable)1321 (Given - Provider: Brigette Wallace RN) metoprolol succinate XL (Toprol-XL) 24 hr tablet 25 mg 25 mg, Oral, Daily, First dose on Fri10/13/24 at 2050, Do not crush or chew. 0845 (Given - Provider: Emili Walker RN) 1001 (Given - Provider: Emili Walker RN) 0845 (Given - Provider: Natividad Ortiz, RN) pantoprazole (ProtoNix) EC tablet 40 mg 40 mg, Oral, Daily before breakfast, First dose on Fri10/14/24 at 0600, Substituted for omeprazole (Prilosec). Do not crush, chew, or split. 0845 (Given - Provider: Emili Walker RN - Comment: .) 1001 (Given - Provider: Emili Walker RN - Comment: .) 0846 (Given - Provider: Natividad Ortiz, SYDNEE) predniSONE (Deltasone) tablet 60 mg 60 mg, Oral, Daily, First dose on Fri10/13/24 at 2050, On hold since Fri10/14/2024 at 1142 until manually unheld 0900 (Not Given - Provider: Emili Walker RN - Reason: Other - Comment: hold per order)1142 (Held by provider - Provider: David Curry MD - Reason: Other) 0900 (Dose Auto Held - Provider: David Curry MD) 0900 (Dose Auto Held - Provider: David Curry MD)1545 (Unheld by provider - Provider: Automatic Discharge Provider) PRN Medication Order 10/14/2024 10/15/2024 10/16/2024 acetaminophen (Tylenol) suppository 650 mg(Linked Group 1) 650 mg, Rectal, Every 6 hours PRN, fever, For temp greater than 100.4 F (38 C), Starting on Fri10/13/24 at 2033, Administer if oral route cannot be used. Maximum dose of acetaminophen is 4000 mg from all sources in 24 hours. acetaminophen (Tylenol) suppository 650 mg(Linked Group 2) 650 mg, Rectal, Every 6 hours PRN, fever, For temp greater than 100.4 F (38 C), Starting on Fri10/13/24 at 2045, Administer if oral route cannot be used. Maximum dose of acetaminophen is 4000 mg from all sources in 24 hours. acetaminophen (Tylenol) tablet 650 mg(Linked Group 1) 650 mg, Oral, Every 6 hours PRN, mild pain (1-3), fever, For temp greater than 100.4 F (38 C), Starting on Fri10/13/24 at 2033, Maximum dose of acetaminophen is 4000 mg from all sources in 24 hours. acetaminophen (Tylenol) tablet 650 mg(Linked Group 2) 650 mg, Oral, Every 6 hours PRN, mild pain (1-3), fever, For temp greater than 100.4 F (38 C), Starting on Fri10/13/24 at 2045, Maximum dose of acetaminophen is 4000 mg from all sources in 24 hours. baclofen (Lioresal) tablet 5 mg 5 mg, Oral, 3 times daily PRN, muscle spasms, Starting on Fri10/13/24 at 2045 1519 (Given - Provider: Emili Walker, SYDNEE) 0611 (Given - Provider: Esthela Paul RN) naloxone (Narcan) injection 0.4 mg 0.4 mg, IntraVENous, Every 5 min PRN, opioid reversal, respiratory depression, Starting on Fri10/13/24 at 2037, +++ For RR <10, pinpoint pupils, over sedation for opioid reversal - MUST notify superintendent nonselling provider immediately after first dose, may give IM or SQ if no IV access +++ ondansetron (Zofran) injection 4 mg(Linked Group 3) 4 mg, IntraVENous, Every 6 hours PRN, nausea, vomiting, Starting on Fri10/13/24 at 2033, 1st Line. Give IV if patient is unable to take orally. If inadequate response within 60 minutes, proceed to next-line agent or contact provider if no further options ordered. 0851 (See Alternative - Provider: Emili Walker, SYDNEE) 1607 (Given - Provider: Emili Walker, SYDNEE) ondansetron ODT (Zofran-ODT) disintegrating tablet 4 mg(Linked Group 3) 4 mg, Oral, Every 8 hours PRN, nausea, vomiting, Starting on Fri10/13/24 at 2033, 1st Line. If inadequate response within 60 minutes, proceed to next-line agent or contact provider if no further options ordered. Patient should allow tablet to dissolve on tongue. Do not remove from blister pack until just before administering. 0851 (Given - Provider: Emili Walker RN) 1607 (See Alternative - Provider: Emili Walker RN) oxyCODONE (Roxicodone) immediate release tablet 10 mg (CANCELED)(Linked Group 4) 10 mg, Oral, Every 4 hours PRN, severe pain (7-10), Starting on Fri10/13/24 at 2046 1619 (Given - Provider: Margaret Colindres RN)2019 (Given - Provider: Esthela Paul, SYDNEE) 1006 (Given - Provider: Emili Walker, SYDNEE) oxyCODONE-acetaminophen (Percocet) 5-325 MG per tablet 1 tablet (CANCELED) 1 tablet, Oral, Every 6 hours PRN, moderate pain (4-6), severe pain (7-10), Starting on Fri10/13/24 at 2033, Maximum dose of acetaminophen is 4000 mg from all sources in 24 hours. 0601 (Given - Provider: Maggie Schrader RN)1219 (Given - Provider: Emili Walker, SYDNEE)1827 (Given - Provider: Emili Walker, SYDNEE) 0607 (Given - Provider: Esthela Paul, SYDNEE) oxyCODONE-acetaminophen (Percocet) 5-325 MG per tablet 2 tablet 2 tablet, Oral, Every 4 hours PRN, moderate pain (4-6), severe pain (7-10), Starting on Fri10/15/24 at 1336, Maximum dose of acetaminophen is 4000 mg from all sources in 24 hours. 1425 (Given - Provider: Emili Walker RN)2058 (Given - Provider: Esthela Paul RN) 0853 (Given - Provider: Natividad Ortiz RN) polyethylene glycol (PEG) 3350 (Miralax) packet 17 g 17 g, Oral, Daily PRN, constipation, Starting on Fri10/13/24 at 2033, 1st line for treatment of constipation - give scheduled if no bowel movement in past 24 hours. polyethylene glycol (PEG) 3350 (Miralax) packet 17 g 17 g, Oral, Daily PRN, constipation, Starting on Fri10/13/24 at 2045, 1st line for treatment of constipation - give scheduled if no bowel movement in past 24 hours. 0851 (Given - Provider: Emili Walker RN) Linked Groups Order Group 1: acetaminophen (Tylenol) tablet 650 mgJump to med 650 mg, Oral, Every 6 hours PRN, mild pain (1-3), fever, For temp greater than 100.4 F (38 C), Starting on Fri10/13/24 at 2033, Maximum dose of acetaminophen is 4000 mg from all sources in 24 hours. Or acetaminophen (Tylenol) suppository 650 mgJump to med 650 mg, Rectal, Every 6 hours PRN, fever, For temp greater than 100.4 F (38 C), Starting on Fri10/13/24 at 2033, Administer if oral route cannot be used. Maximum dose of acetaminophen is 4000 mg from all sources in 24 hours. Group 2: acetaminophen (Tylenol) tablet 650 mgJump to med 650 mg, Oral, Every 6 hours PRN, mild pain (1-3), fever, For temp greater than 100.4 F (38 C), Starting on Fri10/13/24 at 2045, Maximum dose of acetaminophen is 4000 mg from all sources in 24 hours. Or acetaminophen (Tylenol) suppository 650 mgJump to med 650 mg, Rectal, Every 6 hours PRN, fever, For temp greater than 100.4 F (38 C), Starting on Fri10/13/24 at 2045, Administer if oral route cannot be used. Maximum dose of acetaminophen is 4000 mg from all sources in 24 hours. Group 3: ondansetron ODT (Zofran-ODT) disintegrating tablet 4 mgJump to med 4 mg, Oral, Every 8 hours PRN, nausea, vomiting, Starting on Fri10/13/24 at 2033, 1st Line. If inadequate response within 60 minutes, proceed to next-line agent or contact provider if no further options ordered. Patient should allow tablet to dissolve on tongue. Do not remove from blister pack until just before administering. Or ondansetron (Zofran) injection 4 mgJump to med 4 mg, IntraVENous, Every 6 hours PRN, nausea, vomiting, Starting on Fri10/13/24 at 2033, 1st Line. Give IV if patient is unable to take orally. If inadequate response within 60 minutes, proceed to next-line agent or contact provider if no further options ordered. Group 4: oxyCODONE (Roxicodone) immediate release tablet 5 mg (CANCELED) 5 mg, Oral, Every 4 hours PRN, moderate pain (4-6), Starting on Fri10/13/24 at 2045 Or oxyCODONE (Roxicodone) immediate release tablet 10 mg (CANCELED)Jump to med 10 mg, Oral, Every 4 hours PRN, severe pain (7-10), Starting on Fri10/13/24 at 2045 FOR RECORDS PERTAINING TO PATIENTS WHO ARE OR HAVE BEEN ENROLLED IN A CHEMICAL DEPENDENCY/SUBSTANCEABUSE PROGRAM, SOME INFORMATION MAY BE OMITTED. This clinical summary was aggregated from multiple sources. Caution should be exercised in using it in the provision of clinical care. This summary normalizes information from multiple sources, and as a consequence, information in this document may materially change the coding, format and clinical context of patient data. In addition, data may be omitted in some cases. CLINICAL DECISIONS SHOULD BE BASED ON THE PRIMARY CLINICAL RECORDS. [employer] provides no warranty or guarantee of the accuracy or completeness of information in this document.
[2025-08-14 12:17] VITALS: BP 136/63; PULSE 60; RESP 18; TEMP 36.6; O2SAT 100
== END 2025-08-14 12:20 | disposition home or self-care (01) ==
PROVIDERS: Emergency Provider Emergency Medicine; PCP Internal Medicine; Visit Provider Emergency Medicine
DX: J20.9 Acute bronchitis, unspecified (principal); C90.00 Multiple myeloma not having achieved remission; D70.9 Neutropenia, unspecified; I10 Essential (primary) hypertension; Z79.82 Long term (current) use of aspirin; Z79.899 Other long term (current) drug therapy
CPT/HCPCS: 71046; 80048; 85025; 87040; 99282

== ENCOUNTER 2025-08-26 12:30 | Outpatient (RCR) | payer MEDICARE, OTHER, SELFPAY ==
--- NOTE | 2025-06-02 15:55 | HP.PTEVAL_ITS ---
Patient's Visit Information Visit Information Visit Information: NADER HOWELL is a 74 year old F referred to Physical Therapy by Dr. Ruth Acuna MD with a diagnosis of MULTIPLE MYELOMA NOT HAVING ACHIEVED REMISSION. Date of Evaluation: 06/02/25 Physical Therapist: Jessica Mac PT, Cert MDT Visit Plan Frequency: 2x /Week Duration: 6-9 wks Plan: No Bending, Lifting (greater than 5 lbs) or Twisting Gait Training with Cane and eventually off of assistive device when safe/strong enough. Balance Training. Endurance Training. Light Neutral Spine Core Stability Exercises and Gentle Ashley LE Hamstring and Calf Stretching to help reduce stress to the Lumbar Spine with all Daily Activities. Gentle Ashley UE ROM/Stretching including trial of Nany's and maybe suggest home nany's. Light Ashley UE and LE Strengthening. Instruction in Proper Posture Control, Body Mechanics, and Appropriate Activity Modifications. HEP Instruction. Subjective Subjective: Work/Leisure: RETIRED Present symptoms: BACK PAIN. (PATIENT ALSO REPORTS SHE GETS PAIN IN THE LEFT SIDE OF HER NECK AND JAW (CRAMPS), HANDS R>L, L SHLD). Present since: BACK PAIN STARTED ABOUT 2 YEARS AGO AND THEN SEVERE PAIN STARTING IN Jul OR SEP 2024 Pain Scale: WORST 9/10, LEAST 4/10 Currently: 4/10 Is it getting better, worse or staying the same: BACK PAIN HAS BEEN IMPROVING A LITTLE BIT. GETTING STRONGER. WANTS TO GET RID OF THE WALKER. Commenced as a result of: CANCER Worse: WHEN PAIN MEDICINE WEARS OFF, OVER DOING IT WITH THINGS LIKE A LITTLE BIT OF COOKING, MAKING BREAKFAST, DOING LAUNDRY, DISHES. Better: LYING DOWN ON BACK OR EITHER SIDE Disturbed sleep: YES. CAN SLEEP ABOUT 3 HRS AT A TIME. GETS UP TO URINATE AND TAKE PAIN MEDICINE. Previous history/Previous treatment: COMPRESSION FX DX IN SEP 2024, BRACED AND PT X 2 WKS WHILE HOSPITALIZED AT [facility] (D/C'D WITH CANE AND FWW) APPROX OCT 2024. DX'D WITH CANCER DECEMBER 2024. Treatment this episode: PAIN MEDICINE, LEROY'S WITH DR. CUNNINGHAM WITH ABOUT A MONTH AGO WITH BENEFIT AND FOLLOW UP PENDING IN ABOUT A MONTH. PATIENT REPORTS INJECTION HELPED HER BE ABLE TO STAND MORE. CHEMOTHERAPY CURRENTLY IN OFFICE PERIODICALLY AND AT HOME DAILY. PATIENT REPORTS SHE WENT INTO REMISSION IN MAY BUT WILL BE ON CHEMO INDEFINATELY. Coughing/sneezing/straining: PATIENT REPORTS INCREASED JAW BUT NOT BACK PAIN WITH SNEEZING. Gait: PATIENT DENIES ANY FALL. STATES SHE CAN WALK WITHOUT HER WALKER BUT DR. ACUNA DOESN'T WANT HER TO UNTIL CLEARED BY PT. CURRENTLY USING FWW AT ALL TIMES EXCEPT CANE IN/OUT OF HOUSE ON 2-3 STEPS WITH ONE HR. THEN EVERYTHING NEEDED IS ON ONE FLOOR. Bowel or Bladder Dysfunction: URINARY FREQUENCY BUT NOT INCONTINENT. Accidents: NO Unexplained weight loss: NO Imaging: YES - SEE [facility] EMR PMH/Recent major surgery: Encounter for chemotherapy management Polio Compression fracture of body of thoracic vertebra Hypercalcemia of malignancy Encounter for education Loss of hearing Wears glasses Post-menopausal Anxiety Arthritis Anemia Restless legs Vertigo Gastric reflux Non-smoker Leg cramps History of pain when walking Cardiology follow-up encounter Hypothyroidism Positive PPD HTN (hypertension) History of benign ovarian tumor GERD (gastroesophageal reflux disease) IBS (irritable bowel syndrome) Right sided abdominal pain History of esophagogastroduodenoscopy (EGD) Hx of colonoscopy S/P total abdominal hysterectomy H/O oophorectomy H/O foot surgery Hx of cholecystectomy History of appendectomy Objective Objective: THIS PATIENT AMBULATES INDEP'LY INTO PT WITH A FRONT WHEELED WALKER X APPROX 150 FEET WITH FAIR CADANCE, NO LOB, AND LIGHT UE PRESSURE GUIDING WALKER. SHE IS ABLE TO INDEP TRANSFER SIT TO STAND AND REVERSE WITH MIN ASHLEY UE ASSIST. Sitting/Standing Posture: INCREASED TRUNK FLEXION, INCREASED KYPHOSIS, FH AND ROUNDED SHLD'S Active Correction of posture: INCREASES BACK PAIN AND UNABLE TO MAINTAIN. Sensory deficit: ASHLEY UE AND LE LIGHT TOUCH SENSATION GROSSLY INTACT AND SYMMETRICAL ROM deficit: VERY TIGHT ASHLEY HS'S. L SHLD ACTIVE ELEVATION = 116 DEG AND R 130 DEG. ALSO WITH ASHLEY CALF TIGHTNESS. Motor deficit: ASHLEY UPPER AND LE'S GROSSLY 4-/5 WITH MMT'ING MID-RANGE Lumbar, Thoracic and Cervical mvmt loss: NT Balance: Static Standing - Good, Dynamic - Fair + Core strength: Fair - Steps: ASCENDS AND DESCENDS RECIP. X 3 STEPS WITH ONE HR. 30 STS Test: 7 WITH ASHLEY UE ASSIST AND SOB POST TEST Tug Test: 19.65 WITH FWW. Balance/Special Test Scores Lower Extremity Functional Score: 24 Goals Goal 1:: PATIENT WILL HAVE INCREASED BLE AND CORE STRENGTH BY 1/2 GRADE OF ALL EFFECTED MUSCULATURE Goal Time Frame: 2-4 Weeks Goal 2:: PATIENT WILL COMPLETE 10 STANDS IN 30 SECS WITHOUT UE ASSIST TO DEMONSTRATE IMPROVED FUNCTIONAL STRENGTH Goal Time Frame: 4-6 Weeks Goal 3:: PATIENT WILL COMPLETE TUG IN < 12 SECS WITHOUT AD TO DEMONSTRATE IMPROVED GAIT STABILITY Goal Time Frame: 6-8 Weeks Goal 4:: PATIENT WILL BE ABLE TO WALK FOR AT LEAST 10 MINUTES WITHOUT AD AND WITHOUT AGGREVATION OF SYMPTOMS > 2-5/10 IN ORDER TO IMPROVE PERFORMANCE OF ADL'S AND IADL'S. Goal Time Frame: 6-8 Weeks Goal 5:: PATIENT WILL BE ABLE TO NEGOTIATE FLIGHT OF STEPS WITH 1 HR WITH RECIPROCAL PATTERN WITHOUT LIMITATIONS. Goal Time Frame: 2-4 Weeks Goal 6:: PATIENT WILL BE INDEP WITH A HEP FOR CONTINUED IMPROVEMENT ONCE FORMAL PHYSICAL THERAPY CONCLUDES. Goal Time Frame: 6-8 Weeks Rehabilitation Potential Physical Therapy Diagnosis: CORE, UPPER AND LE WEAKNESS AND STIFFNESS WITH MULTIPLE JOINT PAIN AND POOR ENDURANCE Rehabilitation Potential: Good Anticipated Interventions Patient/Client Instruction: Educate patient on: Condition, Plan of Care and Risk Factors For the Purpose of:: To improve self management Therapeutic Exercise to Include: Strength training, Endurance training, Balance training, Body mechanics, Postural training, Flexibilty training, Gait and locomotor training, Neuromotor development, In an aquatic setting, Active ROM, Dynamic Lumbar Stabilization and Scapular Strength/Stabilization For the Purpose of:: To decrease pain, To increase ROM, To improve muscle performance and motor function, To increase tolerance to activity/condition/position, To improve performance and independence with ADL's, To improve ability of physical actions for home/community/work/leisure, To improve gait and locomotor functions, To increase flexibility/ROM, To improve endurance, To improve balance, To improve self management and To improve ability to perform tasks related to life management Text: Thank you for the opportunity to evaluate your patient. For Medicare and Medicare HMO plans, please review the plan of care and approve it. It will need to be FAXED BACK to us at [phone] for Medicare purposes. For Medicare only, by signing this I certify the plan of care. Please let me know if there are questions or concerns regarding this plan of care. Physician Signature: Date:
--- NOTE | 2025-07-06 13:45 | HP.PTREVAL ---
Re-Evaluation Intro: Dr. Ruth Acuna MD, It has been my pleasure to treat NADER HOWELL over the last 10 visits for MULTIPLE MYELOMA NOT HAVING ACHIEVED REMISSION. Please see the progress note below for an update on the physical therapy plan of care! Subjective Subjective: PATIENT REPORTS SHE IS GETTING STRONGER. SHE STATES SHE IS DOING MORE AROUND THE HOUSE NOW SINCE STARTING THERAPY LIKE COOKING, DOING LAUNDRY AND DOING DISHES. HER NOTES THAT HE HAS NOTICED HIS WIFES APPETITE AND STAMINA HAVE IMPROVED SINCE STARTING PT. PATIENT AND REPORT PATIENT IS WALKING AROUND HOME A LOT MORE ALONE WITHOUT ANY AD. STILL HAVING INTERMITTENT PAIN DOWN LLE AND IT WOKE HER UP LAST NIGHT. LLE PAIN IS RANGING 0-8/10. F/U WITH DR. CUNNINGHAM GOT RE-SCHEDULED BY HIS OFFICE FROM 06/23/25 TO 07/14/25. SHE REPORTS PARTIAL COMPLIANCE WITH HER HEP HER PAIN AND ENERGY ALLOWS AND FEELS SHE HAS ENOUGH HOME EX'S TO CHALLENGE HER AT THIS TIME. Objective Objective/Function: PATIENT WAS SEEN TODAY FOR RE-ASSESSMENT OF PROGRESS TOWARD THE SET PT GOALS AND THE NEED FOR FURTHER PHYSICAL THERAPY VS READINESS FOR DISCHARGE. THIS PATIENT IS MAKING GOOD PROGRESS WITH PT AND IS A GOOD CANDIDATE TO CONTINUE PT BASED ON PROGRESS MADE AND ROOM FOR FURTHER IMPROVEMENT. PATIENT AND ARE AGREEABLE. PATIENT DID NOT EXHIBIT PAIN BEHAVIOR TODAY WITH TESTING WITHOUT AD AND DENIED INCREASED PAIN AFTER TESTING WITHOUT AD. UPON EXAM TODAY: ROM deficit: VERY TIGHT ASHLEY HS'S. L SHLD ACTIVE ELEVATION = 138 DEG AND R 152 DEG. ALSO WITH ASHLEY CALF TIGHTNESS. Motor deficit: ASHLEY UPPER AND LE'S GROSSLY 4/5 WITH MMT'ING MID-RANGE Lumbar, Thoracic and Cervical mvmt loss: NT Balance: Static Standing - Good, Dynamic - GOOD - Core strength: Fair Steps: ASCENDS AND DESCENDS RECIP. X 3 STEPS WITH ONE HR. 30 STS Test: 11 WITH HANDS ON KNEES. Tug Test: 12.35 WITH SUPERVISION AND NO AD. SLS: X 5 TO 6 SEC ASHLEY WITHOUT UE ASSIST. STEPS: ASCENDS AND DESCENDS RECIPROCALLY X 1 FLIGHT WITH ONE HR SAFELY WITH SUPERVISION. THIS IS THE FIRST TIME PATIENT HAS DONE A FLIGHT OF STEPS AND SHE WAS SURPRISED SHE COULD DO IT. SHE IS EXCITED TO GO TO HER BASEMENT. LEFS SCORE HAS IMPROVED FROM 24 TO 42. Plan Plan Plan: No Bending, Lifting (greater than 5 lbs) or Twisting CONTINUE WITH CURRENT PLAN OF CARE WORKING TOWARD INCREASING PATIENTS STRENGTH AND CONFIDENCE WALING WITHOUT AD. Gait Training with Cane and eventually off of assistive device when safe/strong enough. Balance Training. Endurance Training. Light Neutral Spine Core Stability Exercises and Gentle Ashley LE Hamstring and Calf Stretching to help reduce stress to the Lumbar Spine with all Daily Activities. Gentle Ashley UE ROM/Stretching including trial of Nany's and maybe suggest home nany's. Light Ashley UE and LE Strengthening. Instruction in Proper Posture Control, Body Mechanics, and Appropriate Activity Modifications. HEP Instruction. Balance/Gait/Functional tests Balance/Special Test Scores Lower Extremity Functional Score: 42 Goals Goals Goal 1:: PATIENT WILL HAVE INCREASED BLE AND CORE STRENGTH BY 1/2 GRADE OF ALL EFFECTED MUSCULATURE Goal Time Frame: 2-4 Weeks Goal Progress: Goal Met Goal 2:: PATIENT WILL COMPLETE 10 STANDS IN 30 SECS WITHOUT UE ASSIST TO DEMONSTRATE IMPROVED FUNCTIONAL STRENGTH Goal Time Frame: 4-6 Weeks Goal Progress: Goal Met Goal 3:: PATIENT WILL COMPLETE TUG IN < 12 SECS WITHOUT AD TO DEMONSTRATE IMPROVED GAIT STABILITY Goal Time Frame: 6-8 Weeks Goal Progress: Progressing Goal 4:: PATIENT WILL BE ABLE TO WALK FOR AT LEAST 10 MINUTES WITHOUT AD AND WITHOUT AGGREVATION OF SYMPTOMS > 2-5/10 IN ORDER TO IMPROVE PERFORMANCE OF ADL'S AND IADL'S. Goal Time Frame: 6-8 Weeks Goal Progress: Progressing Goal 5:: PATIENT WILL BE ABLE TO NEGOTIATE FLIGHT OF STEPS WITH 1 HR WITH RECIPROCAL PATTERN WITHOUT LIMITATIONS. Goal Time Frame: 2-4 Weeks Goal Progress: Progressing Goal 6:: PATIENT WILL BE INDEP WITH A HEP FOR CONTINUED IMPROVEMENT ONCE FORMAL PHYSICAL THERAPY CONCLUDES. Goal Time Frame: 6-8 Weeks Goal Progress: Progressing Anticipated Interventions Anticipated Interventions Patient/Client Instruction: Educate patient on: Condition, Plan of Care and Risk Factors For the Purpose of:: To improve self management Therapeutic Exercise to Include: Strength training, Endurance training, Balance training, Body mechanics, Postural training, Flexibilty training, Gait and locomotor training, Neuromotor development, In an aquatic setting, Active ROM, Dynamic Lumbar Stabilization and Scapular Strength/Stabilization For the Purpose of:: To decrease pain, To increase ROM, To improve muscle performance and motor function, To increase tolerance to activity/condition/position, To improve performance and independence with ADL's, To improve ability of physical actions for home/community/work/leisure, To improve gait and locomotor functions, To increase flexibility/ROM, To improve endurance, To improve balance, To improve self management and To improve ability to perform tasks related to life management Re-Evaluation Ending Re-evaluation ending: Please do not hesitate to contact me at [phone] by phone or if you have questions or concerns regarding this new plan of care! Sincerely, Jessica Mac, PT, Cert MDT
--- NOTE | 2025-08-26 14:19 | HP.PTDCSUM_ITS ---
Discharge Summary D/C summary: It has been my pleasure to treat NADER HOWELL referred by Dr. Ruth Acuna MD, with the diagnosis of MULTIPLE MYELOMA NOT HAVING ACHIEVED REMISSION for a total of 17 visit(s). Discharge Date: 08/26/25 Please see the following information for a summary of their discharge status. Subjective Subjective: PATIENT REPORTS SHE SAW DR. CUNNINGHAM YESTERDAY FOR F/U ABOUT NERVE BLOCK SHE REC'D 07/21/25. OVER-ALL SHE REPORTS ABOUT 70% BENEFIT FROM THE N. BLOCK BUT AT TIME SHE STATES SHE STILL HAS A LOT OF BACK PAIN (UP TO 10/10 EVEN). SHE REPORTS SHE HASN'T HAD ANY PAIN DOWN HER LEGS RECENTLY. SHE REPORTS FAR THERAPY GOES SHE DEFINATELY THINKS IT HAS MADE HER STRONGER. SHE REPORTS SHE HAS A TREADMILL AND A NUSTEP MACHINE AT HOME TO USE. STATES SHE IS WALKING AROUND HER HOUSE WITHOUT AD, CAN GO UP AND DOWN HER STEPS TO THE BASEMENT IF NEEDED AND USES THE WALKER WHEN OUT AND ABOUT PER DOCTORS ORDERS. Pain Right mid/LB: Pain Intensity (Out of 10): 4 L HIP: Pain Intensity (Out of 10): 0 Overall Improvement % Improvement: 75 Objective Objective/Function: PATIENT WAS SEEN TODAY FOR RE-ASSESSMENT OF PROGRESS TOWARD THE SET PT GOALS AND THE NEED FOR FURTHER PHYSICAL THERAPY VS READINESS FOR DISCHARGE. THIS PATIENT AMBULATES INDEP'LY INTO PT WITH HER WITH FWW WITH [facility]. SHE REPORTS SHE ISN'T USING ANY AD'S IN THE HOUSE BUT SHE USES THE WALKER WHEN OUT AND ABOUT BECAUSE THE DOCTORS RECOMMEND DOING SO TO AVOID FALLING AND TO DECREASE BACK PAIN. PATIENTS PROGRESS IS PLATEAUING AND LIMITED DUE TO PAIN AT TIMES. WITH FURTHER EDUCATION TODAY PATIENT AND AGREE WITH BENEFITS OF DISCHARGE TO HOME EX PROGRAM VS CONTINUED PT AT THIS TIME. UPON EXAM TODAY: ROM deficit: ASHLEY LE'S WFL'S WITH MILD HS TIGHTNESS NOW. L SHLD ACTIVE ELEVATION = 138 DEG AND R 149 DEG. Motor deficit: ASHLEY UPPER AND LE'S GROSSLY 4/5 WITH MMT'ING MID-RANGE Lumbar, Thoracic and Cervical mvmt loss: NT Balance: Static Standing - Good, Dynamic - Good. Core strength: Fair Steps: Patient reports went to her basement after last re-check without difficulty. Tug Test: 11.78 indep without AD. Goals Goal 1:: PATIENT WILL HAVE INCREASED BLE AND CORE STRENGTH BY 1/2 GRADE OF ALL EFFECTED MUSCULATURE Goal Progress: Goal Met Goal 2:: PATIENT WILL COMPLETE 10 STANDS IN 30 SECS WITHOUT UE ASSIST TO DEM ONSTRATE IMPROVED FUNCTIONAL STRENGTH Goal Progress: Goal Met Goal 3:: PATIENT WILL COMPLETE TUG IN < 12 SECS WITHOUT AD TO DEMONSTRATE IMPROVED GAIT STABILITY Goal Progress: Goal Met Goal 4:: PATIENT WILL BE ABLE TO WALK FOR AT LEAST 10 MINUTES WITHOUT AD AND WITHOUT AGGREVATION OF SYMPTOMS > 2-5/10 IN ORDER TO IMPROVE PERFORMANCE OF ADL'S AND IADL'S. Goal Progress: At times around house Goal 5:: PATIENT WILL BE ABLE TO NEGOTIATE FLIGHT OF STEPS WITH 1 HR WITH RECIPROCAL PATTERN WITHOUT LIMITATIONS. Goal Progress: Progressing Goal 6:: PATIENT WILL BE INDEP WITH A HEP FOR CONTINUED IMPROVEMENT ONCE FORMAL PHYSICAL THERAPY CONCLUDES. Goal Progress: Goal Met Plan Plan: D/C TO HEP. D/C Information d/c sentence: If there are questions or concerns regarding this patient's physical therapy, please feel free to call me at [phone]. Thank you for the referral of this patient. Sincerely, Jessica Mac, PT, Cert MDT Balance/Gait/Functional tests Balance/Special Test Scores Lower Extremity Functional Score: 35 Improvement % Improvement: 75
== END 2025-08-26 14:47 | disposition home or self-care (01) ==
LOC: PT 12:30
PROVIDERS: PCP Family Medicine; Referring Provider Internal Medicine Hematology & Oncology; Visit Provider Internal Medicine Hematology & Oncology
DX: C90.00 Multiple myeloma not having achieved remission (principal)
CPT/HCPCS: 97110; 97116; 97162; 97530